=== PATIENT | female | born 1970 | race Caucasian/White ===

== ENCOUNTER 2020-07-24 11:11 | Outpatient (REF) | payer MEDICAID, SELFPAY | END 2020-07-24 11:12 | disposition home or self-care (01) | LOC: HO.LAB 11:11 | PROVIDERS: Visit Provider Internal Medicine | DX: Z20.828 Contact with and (suspected) exposure to other viral communicable diseases (principal) | CPT/HCPCS: 87635 ==

== ENCOUNTER 2020-09-15 00:08 | Emergency (ER) | payer MEDICAID, SELFPAY ==
[2020-09-15 01:04] VITALS: BP 135/88; PULSE 80; RESP 16; TEMP 36.2; O2SAT 98; BMI 27.3
--- NOTE | 2020-09-15 02:13 | ED.GENADULT ---
HPI - General Adult General Chief complaint: General Medical Stated complaint: VAGINAL DISCHARGE Time Seen by Provider: 09/15/20 02:01 Source: patient Mode of arrival: ambulatory Limitations: no limitations History of Present Illness HPI narrative: patient comes to the emergency room complaining of a suture sticking out from a surgical sites, below her left nipple. Patient had breast augmentation surgery on 07/17/[address] Patient denies any pain, patient states that the suture is sticking out and she was concerned. No signs of infection. No pain. MD complaint: Suture complaint Related Data Allergies Allergy/AdvReac Type Severity Reaction Status Date / Time No Known Allergies Allergy Verified 09/15/20 01:04 Review of Systems Review of Systems: Constitutional : No Weight loss, No Fever, No Chills, No Night Sweats, No Fatigue, No Malaise ENT/Mouth : No Hearing loss, No Ear Pain, No Nasal Congestion, No Sinus Pain, No Hoarseness, No sore throat, No Rhinorrhea, No Swallowing Difficulty Eyes: No Eye Pain, No Swelling, No Redness, No Foreign Body, No Discharge, No Vision Changes Cardiovascular : No Chest Pain, No SOB, No Dyspnea on Exertion, No Orthopnea, No Edema, No Palpitations Respiratory : No Cough, No Sputum, No Wheezing, No Smoke Exposure, No Dyspnea Gastrointestinal : No Nausea, No Vomiting, No Diarrhea, No Constipation, No abdominal Pain, No Hematochezia, No Melena Genitourinary : no irregular bleeding, No Dysuria, No Urinary Frequency, No Hematuria, No Urinary Incontinence, No Urgency, No Flank Pain, No Urinary Flow Changes, No Hesitancy Musculoskeletal : No joint pain, No Myalgias, No Joint Swelling Skin : No Skin Lesions, No rash Neuro : No Weakness, No Numbness, No Paresthesias, No Loss of Consciousness, No Dizziness, No Headache Psych : No Anxiety/Panic, No Depression, No SI/HI/AH/VH, No Social Issues, Heme/Lymph: No Bruising, No Bleeding,No Lymphadenopathy Endocrine : No Polyuria, No Polydipsia, No Temperature Intolerance [facility] Past Medical History Medical History Asthma High cholesterol Hypertension Kidney disease Social History Social History Advance Directives: No Advance Directives Information Provided: No Physical Exam Vital Signs: Vital Signs: Last Vital Signs Temp 97.1 F 09/15/20 01:04 Pulse 80 09/15/20 01:04 Resp 16 09/15/20 01:04 BP 135/88 09/15/20 01:04 Pulse Ox 98 09/15/20 01:04 Body Mass Index 27.3 Appearance: Alert. Oriented X3. No acute distress. Eyes: Pupils equal, round and reactive to light. ENT: Pharynx normal. Neck: Normal inspection. Neck supple. No lymph nodes noted. No crepitus CVS: Normal heart rate and rhythm. Pulses normal. Normal S1 and S2 Respiratory: No respiratory distress. Breath sounds normal. No Wheezing. No rales Abdomen: Soft and nontender. No rigidity. No distention. good BS x4 Skin: Skin warm and dry. Normal skin color. patient's incisions from the breast are healing very well. No signs of infection. There is a suture sticking from the left aereola at 06:00 o'clock position, less than 1 mm in length Extremities: No lower extremity edema. No lower extremity edema. No Lacerations. No Rash Neuro: Oriented X 3. No motor deficit. No sensory deficit. Moving all extermities. No slurred speech. Course Course Course Narrative: I attempted to reduce the size of the suture, I was able to cut most of it, however there is small amount of suture sticking out, less than 1 mm. Barely palpable to touch. I discussed with the patient that this is absorbable suture an in a few weeks he will absorbed. Discharge Plan Discharge Clinical Impression: Retained suture Qualifiers: Encounter type: initial encounter Qualified Code(s): T81.89XA - Other complications of procedures, not elsewhere classified, initial encounter Patient Disposition: Home, Self-Care Additional Instructions: the suture will self absorbed. If you have any discomfort, redness, pus drainage, any concerns with the surgery, please return to the emergency room. Otherwise please follow-up with her plastic surgeon.
== END 2020-09-15 02:26 | disposition home or self-care (01) ==
PROVIDERS: Emergency Provider Emergency Medicine; PCP Nurse Practitioner Family
DX: L76.82 Other postprocedural complications of skin and subcutaneous tissue (principal); N64.89 Other specified disorders of breast; N89.8 Other specified noninflammatory disorders of vagina; I10 Essential (primary) hypertension; Y83.4 Other reconstructive surgery as the cause of abnormal reaction of the patient, or of later complication, without mention of misadventure at the time of the procedure; Y81.8 Miscellaneous general- and plastic-surgery devices associated with adverse incidents, not elsewhere classified; Z79.899 Other long term (current) drug therapy
CPT/HCPCS: 99283

== ENCOUNTER 2020-12-28 16:39 | Outpatient (REF) | payer MEDICAID, SELFPAY ==
--- NOTE | ~2020-12-28 | XR_ITS ---
EXAMINATION: XR CHEST CLINICAL INFORMATION: Live resection. Body. COMPARISON: None TECHNIQUE: 2 views of the chest were obtained. FINDINGS: No significant abnormality is noted involving the heart, lungs, mediastinum, bony thorax or soft tissues. XR/XR chest 2V IMPRESSION: Unremarkable chest exam.
[2020-12-28 18:51] LABS: MANUAL DIFF FLAG NO
[2020-12-28 18:56] LABS: Basophils Absolute Auto 0.1 X10*3/uL (0.0-0.2); Basophils Percent Auto 0.7 % (0-2); Eosinophils Absolute Auto 0.2 X10*3/uL (0.0-0.4); Eosinophils Percent Auto 1.8 % (0-4); Hemoglobin 13.5 g/dl (12.0-16.0); Imm Gran Abs Auto 0.08 X10*3/uL (0.00-0.03); Imm Gran Pct Auto 0.8 % (0.0-0.4); Lymphocytes Absolute Auto 2.3 X10*3/uL (1.2-4.9); Lymphocytes Percent Auto 23.6 % (20-40); Mean Corpuscular HGB Conc 32.1 g/dl (31.0-35.0); Mean Corpuscular Hemoglobin 28.5 pg (27.0-33.0); Mean Corpuscular Volume 88.8 fL (80-98); Mean Platelet Volume 10.5 fL (9.4-12.3); Monocytes Absolute Auto 0.7 X10*3/uL (0.1-1.2); Monocytes Percent Auto 7.4 % (2-11); Neutrophils Absolute Auto 6.4 X10*3/uL (2.0-8.3); Neutrophils Percent Auto 65.7 % (45-73); Platelet Count 516 X10*3/uL (160-400); Red Blood Count 4.73 X10*6/uL (4.20-5.50); White Blood Count 9.7 X10*3/uL (4.8-10.8)
[2020-12-28 19:07] LABS: Prothrombin Time 11.3 SEC (10.8-13.0)
[2020-12-28 19:10] LABS: Partial Thromboplastin Time 32.5 SEC (24.1-38.0)
[2020-12-28 19:20] LABS: Alanine Aminotransferase 20 U/L (0-31); Albumin Level 4.4 g/dL (3.5-5.0); Alkaline Phosphatase 52 U/L (39-117); Anion Gap 16 (12-20); Aspartate Amino Transferase 15 U/L (5-31); Bilirubin Total 0.5 mg/dL (0.0-1.0); Blood Urea Nitrogen 20 mg/dL (9-16); Calcium 9.9 mg/dL (8.4-10.2); Carbon Dioxide 25 mmol/L (22-29); Chloride 105 mmol/L (96-108); Estimated Glomerular Filt Rate 58; Glucose Random 85 mg/dL (60-115); Potassium 4.7 mmol/L (3.3-5.1); Sodium 141 mmol/L (135-145); Total Protein 7.4 g/dL (6.5-8.0)
[2020-12-28 19:26] LABS: HCG Quantitative < 2 mIU/mL
[2020-12-29 04:28] LABS: HIV AB/AG Nonreactive (Nonreactive); HIV Num 1 0.05 S/CO (0.00-0.99)
[2021-01-02 17:16] LABS: Cotinine, U 4 ng/mL; Nicotine, U <2 ng/mL
== END 2020-12-28 16:40 | disposition home or self-care (01) ==
LOC: HO.LAB 16:39
PROVIDERS: PCP Nurse Practitioner Primary Care; Visit Provider Surgery
DX: Z01.818 Encounter for other preprocedural examination (principal)
CPT/HCPCS: 71046; 80053; 80323; 84702; 85025; 85610; 85730; 87389

== ENCOUNTER → 2020-12-29 09:55 | Outpatient (REF) | payer MEDICAID, SELFPAY ==
--- NOTE | 2020-12-29 14:07 | ECG_ITS ---
Test Reason : PREPROC EXAM Blood Pressure : / mmHG Vent. Rate : 093 BPM Atrial Rate : 093 BPM P-R Int : 136 ms QRS Dur : 082 ms QT Int : 336 ms P-R-T Axes : 051 018 031 degrees QTc Int : 417 ms Normal sinus rhythm Normal ECG When compared with ECG of 26-APR-2015 18:48, No significant change was found Referred By: Stefanie Conteh Electronically Signed By:ISLVA TRIVEDI
== END ==
LOC: HO.CARD 09:55
PROVIDERS: PCP Nurse Practitioner Primary Care; Visit Provider Surgery
DX: Z01.818 Encounter for other preprocedural examination (principal)
CPT/HCPCS: 93005

== ENCOUNTER 2021-01-05 12:50 | Outpatient (REF) | payer MEDICAID, SELFPAY ==
[2021-01-05 15:01] LABS: SARS COV2 PCR INHOUSE NEGATIVE (Negative)
== END 2021-01-05 12:51 | disposition home or self-care (01) ==
LOC: HO.LAB 12:50
PROVIDERS: Visit Provider Internal Medicine
DX: Z20.822 Contact with and (suspected) exposure to COVID-19 (principal)
CPT/HCPCS: C9803; U0003

== ENCOUNTER 2021-06-09 00:44 | Emergency (ER) | payer MEDICAID, SELFPAY ==
[2021-06-09 00:57] VITALS: BP 137/85; PULSE 84; RESP 18; TEMP 36.9; O2SAT 98; BMI 31.3
[2021-06-09 01:30] LABS: Appearance Urine HAZY; Color Urine YELLOW; Glucose Urine UA NEG (NEG); Leukocyte Esterase Urine 1+ (NEG); Nitrite Urine NEG (NEG); PH 5.5 (5.0-8.0); Specific Gravity - Urine 1.025 (1.005-1.025); Urine Blood NEG (NEG); Urine Ketones NEG (NEG); Urine Protein NEG (NEG-TRACE)
[2021-06-09 01:36] LABS: Bacteria Urine 2+ /LPF; Mucus Urine 1+ /LPF; RBC Urine 0 /HPF (0); Squamous Epithelial Cell Urine 3+ /LPF
--- NOTE | 2021-06-09 01:54 | ED_ITS ---
HPI - Female Genitourinary General Chief complaint: Urogenital-Female Stated complaint: Pelvic pain/?UTI Time Seen by Provider: 06/09/21 01:44 Source: patient and family (Significant other) Mode of arrival: ambulatory Limitations: no limitations History of Present Illness HPI Narrative: 51-year-old female came in for pelvic pain for 2 weeks, patient also been having frequency urination, with urgency for urination, no dysuria, no back or flank pain. No fever, no chills. Related Data Previous Rx's Medication Instructions Recorded nitrofurantoin 100 mg PO BID #14 cap 06/09/21 monohydrate/macrocrystals 100 mg capsule (Macrobid) phenazopyridine 200 mg tablet 200 mg PO TID #6 tab 06/09/21 (Pyridium) Allergies Allergy/AdvReac Type Severity Reaction Status Date / Time No Known Allergies Allergy Verified 09/15/20 01:04 Review of Systems Review of Systems: All other systems are reviewed and are negative Constitutional: Reports as per HPI and Reports no additional constitutional complaints Eyes: Reports as per HPI and Reports no additional eye complaints Reports system reviewed and no additional complaints, except as documented Cardiovascular: Reports as per HPI and Reports no additional cardiovascular com plaints Respiratory: Reports as per HPI and Reports no additional respiratory complaints Gastrointestinal: Reports as per HPI and Reports no additional gastrointestinal complaints Genitourinary: Reports no additional female genitourinary complaints Musculoskeletal: Reports no additional musculoskeletal complaints Skin/Breast: Reports system reviewed and no additional complaints, except as docu Psychiatric: Reports no additional psychiatric complaints Endocrine: Reports no additional endocrine complaints Hematologic/Lymphatic: Reports no additional hematologic/lymphatic complaints Allergic/Immunologic: Reports no additional allergic/immunologic complaints Reports system reviewed and no additional complaints, except as documented and Reports Abnormal speech present. REPLACED BY [facility] Past Medical History Medical History Asthma High cholesterol Hypertension Kidney disease Social History Social History Patient Tobacco Use Status: Tobacco use Unknown Use of substances other than those prescribed or required for medical reasons: Unknown Advance Directives: No Patient : No Physical Exam Vital Signs: Vital Signs: Last Vital Signs Temp 98.5 F 06/09/21 00:57 Pulse 84 06/09/21 00:57 Resp 18 06/09/21 00:57 BP 137/85 06/09/21 00:57 Pulse Ox 98 06/09/21 00:57 Body Mass Index 31.3 Vital signs have been reviewed as appeared to be correct. Blood pressure normal. Heart rate normal. Respiration rate normal. Temperature normal. Oxygen saturation normal. Appearance: Alert. Oriented X3. No acute distress. Head: Normal external exam. Normocephalic. Atraumatic. No Ma signs noted. No raccoon eyes noted Eyes: PERRLA. EOMI. Conjunctiva and sclera normal. Eyelids normal. ENT: TM's Normal. Pharynx normal. Uvula midline. Moist mucous membranes. No trismus noted. No drooling noted. No muffled voice noted. Neck: Normal inspection. Neck supple. FROM. No adenopathy. Thyroid Normal. No meningeal signs. No neck mass noted. CVS: Normal heart rate and rhythm. Heart sound normal. No murmurs noted. Pulses normal throughout. Respiratory: No respiratory distress. Painless inspiration. Breath sounds norm al. No wheezes/rales/rhonchi noted. Chest nontender. No accessory muscle usage noted or decreased air movement noted. Abdomen: Soft and nontender, no rebound tenderness, no guarding. Bowel sounds n ormal in all 4 quadrants. No distention noted. No organomegaly noted. No visible injury noted. Back: No CVA tenderness. Full range of motion noted. Skin: Skin warm and dry. Normal skin color. Normal skin turgor. No rashes/lesions/lacerations noted. Extremities: No lower extremity edema. Extremities exhibit normal range of motion. Extremities nontender. Neuro: Oriented X 3. Cranial nerve exam: II-XII are grossly intact No motor deficit. No sensory deficit. Reflexes normal. Course Course Course Narrative: Assessment and plan. 51-year-old female came in with pelvic pain, urgency and frequency. Positive mild LEand 5-9 white blood cells. Start the patient on Macrobid and patient was recommended to drink plenty of fluid, patient also was instructed to follow-up with her OBGYN doctor for further follow-up. MDM - Female Genitourinary Lab Data Attestation: I reviewed the patient's lab results. Result diagrams: 06/09/21 02:12 06/09/21 02:12 Labs: Lab Results 06/09/21 06/09/21 06/09/21 Range/Units 01:24 02:12 02:12 WBC 10.1 (4.8-10.8) X10*3/uL RBC 4.20 (4.20-5.50) X10*6/uL Hgb 12.0 (12.0-16.0) g/dl Hct 36.0 L (37-47) % MCV 85.7 (80-98) fL MCH 28.6 (27.0-33.0) pg MCHC 33.3 (31.0-35.0) g/dl RDW 15.8 (11.0-16.0) % Plt Count 374 D (160-400) X10*3/uL MPV 9.8 (9.4-12.3) fL Immature Gran % (Auto) 0.6 H (0.0-0.4) % Neut % (Auto) 64.7 (45-73) % Lymph % (Auto) 25.0 (20-40) % [place] % (Auto) 6.3 (2-11) % Eos % (Auto) 2.7 (0-4) % Baso % (Auto) 0.7 (0-2) % Lymph # (Auto) 2.5 (1.2-4.9) X10*3/uL [place] # (Auto) 0.6 (0.1-1.2) X10*3/uL Eos # (Auto) 0.3 (0.0-0.4) X10*3/uL Baso # (Auto) 0.1 (0.0-0.2) X10*3/uL Abs Immat Gran (auto) 0.06 H (0.00-0.03) X10*3/uL Absolute Neuts (auto) 6.5 (2.0-8.3) X10*3/uL Absolute Nucleated RBC 0.000 (0.0-0.012) X10*3/uL Nucleated RBC % (auto) 0.0 (0.0-0.2) /100WBC Sodium 136 (135-145) mmol/L Potassium 4.3 (3.3-5.1) mmol/L Chloride 100 (96-108) mmol/L Carbon Dioxide 24 (22-29) mmol/L Anion Gap 16 (12-20) BUN 21 H (9-16) mg/dL Creatinine 1.06 (0.5-1.4) mg/dL Estim Creat Clear Calc 54.1 Estimated GFR 55 Random Glucose 113 (60-115) mg/dL Calcium 9.9 (8.4-10.2) mg/dL Total Bilirubin 0.2 (0.0-1.0) mg/dL Direct Bilirubin < 0.2 (0.0-0.5) mg/dL AST 11 (5-31) U/L ALT 12 (0-31) U/L Alkaline Phosphatase 58 (39-117) U/L Total Protein 6.4 L (6.5-8.0) g/dL Albumin 3.9 (3.5-5.0) g/dL Lipase 25 (8-78) U/L Beta HCG, Quant < 2 mIU/mL Urine Color YELLOW Urine Appearance HAZY Urine pH 5.5 (5.0-8.0) Ur Specific [place] 1.025 (1.005-1.025) Urine Protein NEG (NEG-TRACE) MG/DL Urine Glucose (UA) NEG (NEG) MG/DL Urine Ketones NEG (NEG) MG/DL Urine Blood NEG (NEG) Urine Nitrite NEG (NEG) Ur Leukocyte Esterase 1+ H (NEG) Urine RBC 0 (0) /HPF Urine WBC 5-9 H (0-4) /HPF Ur Squamous Epith Cells 3+ /LPF Urine Bacteria 2+ /LPF Urine Mucus 1+ /LPF Discharge Plan Discharge Clinical Impression: Urinary tract infection Qualifiers: Urinary tract infection type: acute cystitis Hematuria presence: without hematuria Qualified Code(s): N30.00 - Acute cystitis without hematuria Patient Disposition: Home, Self-Care Instructions: Urinary Urgency and Frequency (DC) Prescriptions: New nitrofurantoin monohyd/m-cryst [Macrobid] 100 mg capsule 100 mg PO BID Qty: 14 RF: 0 phenazopyridine [Pyridium] 200 mg tablet 200 mg PO TID Qty: 6 RF: 0 Referrals: Stefanie Conteh, [employer] [Primary Care Provider] - 2 days
[2021-06-09 02:19] LABS: Basophils Absolute Auto 0.1 X10*3/uL (0.0-0.2); Basophils Percent Auto 0.7 % (0-2); Eosinophils Absolute Auto 0.3 X10*3/uL (0.0-0.4); Eosinophils Percent Auto 2.7 % (0-4); Imm Gran Abs Auto 0.06 X10*3/uL (0.00-0.03); Imm Gran Pct Auto 0.6 % (0.0-0.4); Lymphocytes Absolute Auto 2.5 X10*3/uL (1.2-4.9); MANUAL DIFF FLAG NO; Mean Corpuscular HGB Conc 33.3 g/dl (31.0-35.0); Mean Corpuscular Hemoglobin 28.6 pg (27.0-33.0); Mean Corpuscular Volume 85.7 fL (80-98); Mean Platelet Volume 9.8 fL (9.4-12.3); Monocytes Absolute Auto 0.6 X10*3/uL (0.1-1.2); Monocytes Percent Auto 6.3 % (2-11); Neutrophils Absolute Auto 6.5 X10*3/uL (2.0-8.3); Neutrophils Percent Auto 64.7 % (45-73); Platelet Count 374 X10*3/uL (160-400); Red Cell Distribution Width 15.8 % (11.0-16.0); White Blood Count 10.1 X10*3/uL (4.8-10.8)
[2021-06-09 02:55] LABS: Alanine Aminotransferase 12 U/L (0-31); Albumin Level 3.9 g/dL (3.5-5.0); Alkaline Phosphatase 58 U/L (39-117); Anion Gap 16 (12-20); Aspartate Amino Transferase 11 U/L (5-31); Bilirubin Direct < 0.2 mg/dL (0.0-0.5); Bilirubin Total 0.2 mg/dL (0.0-1.0); Blood Urea Nitrogen 21 mg/dL (9-16); Calcium 9.9 mg/dL (8.4-10.2); Carbon Dioxide 24 mmol/L (22-29); Chloride 100 mmol/L (96-108); Creatinine Clr Calc Pharmacy 54.1; Estimated Glomerular Filt Rate 55; Glucose Random 113 mg/dL (60-115); Lipase 25 U/L (8-78); Potassium 4.3 mmol/L (3.3-5.1); Sodium 136 mmol/L (135-145); Total Protein 6.4 g/dL (6.5-8.0)
[2021-06-09 03:02] LABS: HCG Quantitative < 2 mIU/mL
[2021-06-09] MEDS: Nitrofurantoin Monohyd/M-Cryst 100 MG CAPSULE PO (03:55)
[2021-06-09] MEDS: Phenazopyridine HCL 200 MG TABLET PO (03:56)
== END 2021-06-09 03:55 | disposition home or self-care (01) ==
PROVIDERS: Emergency Provider Emergency Medicine; PCP Nurse Practitioner Primary Care
DX: N30.00 Acute cystitis without hematuria (principal); R10.2 Pelvic and perineal pain; I10 Essential (primary) hypertension
CPT/HCPCS: 36415; 80048; 80076; 81001; 83690; 84702; 85025; 87086; 87088; 87186; 99283; 99284

== ENCOUNTER 2023-07-20 09:59 | Outpatient (REF) | payer MEDICAID, SELFPAY ==
[2023-07-20 12:19] LABS: Alanine Aminotransferase 20 U/L (0-31); Albumin Level 4.1 g/dL (3.5-5.0); Alkaline Phosphatase 45 U/L (39-117); Anion Gap 11 (12-20); Aspartate Amino Transferase 15 U/L (5-31); Bilirubin Direct 0.1 mg/dL (0.0-0.5); Bilirubin Total 0.3 mg/dL (0.0-1.0); Blood Urea Nitrogen 17 mg/dL (9-16); Calcium 9.4 mg/dL (8.4-10.2); Carbon Dioxide 24 mmol/L (22-29); Chloride 108 mmol/L (96-108); Cholesterol 210 mg/dL (<200); Estimated Glomerular Filt Rate > 60; Glucose Random 93 mg/dL (60-115); HDL Cholesterol 54 mg/dL (>40); LDL Cholesterol Calculated 145 mg/dL (<100); Potassium 3.9 mmol/L (3.3-5.1); Sodium 139 mmol/L (135-145); Total Protein 6.9 g/dL (6.5-8.0); Triglycerides 59 mg/dL (<150)
[2023-07-20 13:20] LABS: Creatinine Urine 140.56 mg/dL; Microalbum/Creatinine Ratio Ur 19.9 ug/mg cr (<30)
== END 2023-07-20 10:00 | disposition home or self-care (01) ==
LOC: HO.HHCL 09:59
PROVIDERS: Visit Provider Nurse Practitioner Primary Care
DX: I12.9 Hypertensive chronic kidney disease with stage 1 through stage 4 chronic kidney disease, or unspecified chronic kidney disease (principal); N18.9 Chronic kidney disease, unspecified; E78.5 Hyperlipidemia, unspecified; F39 Unspecified mood [affective] disorder
CPT/HCPCS: 36415; 80048; 80061; 80076; 82043; 82570

== ENCOUNTER 2023-07-28 20:41 | Emergency (ER) | payer MEDICAID, SELFPAY ==
[2023-07-28 20:53] VITALS: BP 135/74; PULSE 84; RESP 16; TEMP 36.6; O2SAT 96; BMI 29.9
[2023-07-28 21:20] LABS: MANUAL DIFF FLAG NO
[2023-07-28 21:21] LABS: Basophils Absolute Auto 0.1 X10*3/uL (0.0-0.2); Basophils Percent Auto 0.6 % (0-2); Eosinophils Absolute Auto 0.1 X10*3/uL (0.0-0.4); Eosinophils Percent Auto 1.7 % (0-4); Hematocrit 40.7 % (37.0-47.0); Hemoglobin 13.4 g/dl (12.0-16.0); Imm Gran Abs Auto 0.04 X10*3/uL (0.00-0.03); Imm Gran Pct Auto 0.5 % (0.0-0.4); Lymphocytes Percent Auto 24.5 % (20-40); Mean Corpuscular HGB Conc 32.9 g/dl (31.0-35.0); Mean Corpuscular Hemoglobin 28.9 pg (27.0-33.0); Mean Corpuscular Volume 87.9 fL (80.0-98.0); Mean Platelet Volume 9.9 fL (9.4-12.3); Monocytes Absolute Auto 0.5 X10*3/uL (0.1-1.2); Monocytes Percent Auto 6.4 % (2-11); Neutrophils Absolute Auto 5.5 x10*3/uL (2.0-8.3); Neutrophils Percent Auto 66.3 % (45-73); Platelet Count 384 X10*3/uL (160-400); Red Blood Count 4.63 X10*6/uL (4.20-5.50); Red Cell Distribution Width 13.8 % (11.0-16.0); White Blood Count 8.3 X10*3/uL (4.8-10.8)
[2023-07-28 21:22] LABS: Appearance Urine Clear; Color Urine Yellow; Glucose Urine UA Negative (Negative); Leukocyte Esterase Urine Negative (Negative); Nitrite Urine Negative (Negative); Urine Blood Negative (Negative); Urine Ketones Negative (Negative); Urine Protein Negative (Neg-Trace)
[2023-07-28 21:36] LABS: Alanine Aminotransferase 23 U/L (0-31); Albumin Level 4.1 g/dL (3.5-5.0); Alkaline Phosphatase 45 U/L (39-117); Anion Gap 14 (12-20); Aspartate Amino Transferase 18 U/L (5-31); Bilirubin Total 0.2 mg/dL (0.0-1.0); Blood Urea Nitrogen 18 mg/dL (9-16); Calcium 10.1 mg/dL (8.4-10.2); Carbon Dioxide 24 mmol/L (22-29); Chloride 104 mmol/L (96-108); Creatinine Clr Calc Pharmacy 65.5; Estimated Glomerular Filt Rate > 60; Glucose Random 103 mg/dL (60-115); Potassium 3.8 mmol/L (3.3-5.1); Sodium 138 mmol/L (135-145)
--- NOTE | 2023-07-28 22:49 | ED_ITS ---
HPI - Abdominal Pain General Chief Complaint: Abdominal Pain Stated Complaint: kidney infection Time Seen by Provider: 07/28/23 22:39 Source: patient Mode of arrival: ambulatory Limitations: no limitations History of Present Illness HPI narrative: Patient with low back pain and UTI been treated with Levaquin since 06/06/2023 by [facility] patient denied any urinary symptoms at this time no fever no chills no nausea no vomiting add a CT scan done yesterday as a follow- up and was called by the infectious disease doctor that she still has infection patient is worried and advised to continue same antibiotics Related Data Previous Rx's Medication Instructions Recorded nitrofurantoin 100 mg PO BID #14 caps 06/09/21 monohydrate/macrocrystals 100 mg capsule (Macrobid) phenazopyridine 200 mg tablet 200 mg PO TID 6 doses #6 tabs 06/09/21 (Pyridium) Allergies Allergy/AdvReac Type Severity Reaction Status Date / Time No Known Allergies Allergy Verified 07/28/23 20:53 Review of Systems Review of Systems Yes all other systems are reviewed and are negative [facility] Past Medical History Medical History Hypertension Kidney disease High cholesterol Asthma Social History Social History Patient Tobacco Use Status: Tobacco use Unknown Advance Directives: No Advance Directives Information Provided: Yes Physical Exam ED Vital Signs: Vital Signs - 24 hr 07/28/23 20:53 Temperature 97.8 F Pulse Rate 84 Respiratory Rate 16 Blood Pressure 135/74 Pulse Oximetry 96 Oxygen Delivery Method Room Air BMI result Body Mass Index 29.9 Appearance: Alert. Oriented X3. No acute distress. ENT: Pharynx normal. Oral Mucosa moist Neck: Normal inspection. Neck supple. CVS: Normal heart rate and rhythm. Pulses normal. Respiratory: No respiratory distress. Equal air entry bilateral, Abdomen: Soft and nontender. Bowel sounds are present, no mass palpable, no CVA tenderness back: Mild tenderness lumbosacral area Neuro: Oriented X 3. No motor deficit. Medical Decision Making Differential Diagnosis Differential Diagnoses: The differential diagnosis associated with the presentation includes UTI/kidney stone/musculoskeletal pain Lab Data [facility] Lab Attestation statement: I reviewed the patient's lab results. 07/28/23 21:16 07/28/23 21:16 Labs: Lab Results 07/28/23 Range/Units 21:16 WBC 8.3 (4.8-10.8) X10*3/uL RBC 4.63 (4.20-5.50) X10*6/uL Hgb 13.4 (12.0-16.0) g/dl Hct 40.7 (37.0-47.0) % MCV 87.9 (80.0-98.0) fL MCH 28.9 (27.0-33.0) pg MCHC 32.9 (31.0-35.0) g/dl RDW 13.8 (11.0-16.0) % Plt Count 384 (160-400) X10*3/uL MPV 9.9 (9.4-12.3) fL Immature Gran % (Auto) 0.5 H (0.0-0.4) % Neut % (Auto) 66.3 (45-73) % Lymph % (Auto) 24.5 (20-40) % [place] % (Auto) 6.4 (2-11) % Eos % (Auto) 1.7 (0-4) % Baso % (Auto) 0.6 (0-2) % Lymph # (Auto) 2.0 (1.2-4.9) X10*3/uL [place] # (Auto) 0.5 (0.1-1.2) X10*3/uL Eos # (Auto) 0.1 (0.0-0.4) X10*3/uL Baso # (Auto) 0.1 (0.0-0.2) X10*3/uL Abs Immat Gran (auto) 0.04 H (0.00-0.03) X10*3/uL Absolute Neuts (auto) 5.5 (2.0-8.3) x10*3/uL Absolute Nucleated RBC 0.000 (0.0-0.012) X10*3/uL Nucleated RBC % (auto) 0.0 (0.0-0.2) /100WBC Sodium 138 (135-145) mmol/L Potassium 3.8 (3.3-5.1) mmol/L Chloride 104 (96-108) mmol/L Carbon Dioxide 24 (22-29) mmol/L Anion Gap 14 (12-20) BUN 18 H (9-16) mg/dL Creatinine 0.91 (0.5-1.4) mg/dL Estim Creat Clear Calc 65.5 Estimated GFR > 60 Random Glucose 103 (60-115) mg/dL Calcium 10.1 D (8.4-10.2) mg/dL Total Bilirubin 0.2 (0.0-1.0) mg/dL AST 18 (5-31) U/L ALT 23 (0-31) U/L Alkaline Phosphatase 45 (39-117) U/L Total Protein 7.0 (6.5-8.0) g/dL Albumin 4.1 (3.5-5.0) g/dL Urine Color Yellow Urine Appearance Clear Urine pH 6.0 (5.0-9.0) Ur Specific [place] 1.010 (1.005-1.025) Urine Protein Negative (Neg-Trace) mg/dL Urine Glucose (UA) Negative (Negative) mg/dL Urine Ketones Negative (Negative) mg/dL Urine Blood Negative (Negative) Urine Nitrite Negative (Negative) Ur Leukocyte Esterase Negative (Negative) Discharge Plan Discharge Clinical Impression: Low back pain Patient Disposition: Home, Self-Care Instructions: Back Pain (ED) Additional Instructions: At this time there is no proof of any infection Follow-up with PCP/urology Ibuprofen for pain as needed Prescriptions: No Action nitrofurantoin monohyd/m-cryst [Macrobid] 100 mg capsule 100 mg PO BID Qty: 14 0RF Rx Instructions: must administer with a meal/food phenazopyridine [Pyridium] 200 mg tablet 200 mg PO TID Qty: 6 0RF Interventions: ED Discharge Assessment Last Done: 07/28/23 23:22 Discharge Date/Time: 07/28/23 23:22
== END 2023-07-28 23:22 | disposition home or self-care (01) ==
PROVIDERS: Emergency Provider Internal Medicine; PCP Nurse Practitioner Primary Care
DX: M54.50 Low back pain, unspecified (principal); Z79.899 Other long term (current) drug therapy
CPT/HCPCS: 36415; 80053; 81003; 85025; 99282; 99283

== ENCOUNTER 2023-08-14 18:19 | Outpatient (REF) | payer MEDICAID, SELFPAY ==
[2023-08-17 20:34] LABS: HPV mRNA E6/E7 rflx Not Detected (Not Detected)
== END 2023-08-14 18:20 | disposition home or self-care (01) ==
LOC: HO.HHCLNP 18:19
PROVIDERS: Visit Provider Advanced Practice Midwife
DX: Z12.4 Encounter for screening for malignant neoplasm of cervix (principal); Z11.51 Encounter for screening for human papillomavirus (HPV)
CPT/HCPCS: 87624; 88142

== ENCOUNTER 2023-10-17 10:46 | Outpatient (REF) | payer MEDICAID, SELFPAY ==
[2023-10-17 11:33] LABS: Appearance Urine Cloudy; Color Urine Yellow; Glucose Urine UA Negative (Negative); Leukocyte Esterase Urine Negative (Negative); Nitrite Urine Negative (Negative); PH 5.5 (5.0-9.0); UMIC TRIGGER UA YES; Urine Blood Trace (Negative); Urine Ketones Negative (Negative); Urine Protein Negative (Neg-Trace)
[2023-10-17 11:35] LABS: Bacteria Urine Trace (None Seen); Hyaline Casts Urine 0-2 /LPF (0-2); RBC Urine 0-2 /HPF (0-2); WBC Urine 0-5 /HPF (0-5)
[2023-10-17 12:55] LABS: TSH reflex Free T4 2.56 uIU/mL (0.32-4.0)
== END 2023-10-17 10:47 | disposition home or self-care (01) ==
LOC: HO.HHCL 10:46
PROVIDERS: Visit Provider Nurse Practitioner Primary Care
DX: R10.9 Unspecified abdominal pain (principal); R23.2 Flushing
CPT/HCPCS: 36415; 81001; 84443; 87086

== ENCOUNTER 2023-10-23 20:38 | Emergency (ER) | payer MEDICAID, SELFPAY ==
[2023-10-23 20:59] VITALS: BP 113/83; PULSE 85; RESP 18; TEMP 36.3; O2SAT 99; BMI 30.4
[2023-10-24 00:13] VITALS: BP 143/88; PULSE 93; RESP 16; O2SAT 98
[2023-10-24 00:29] LABS: MANUAL DIFF FLAG NO
[2023-10-24 00:30] LABS: Basophils Absolute Auto 0.1 X10*3/uL (0.0-0.2); Basophils Percent Auto 0.6 % (0-2); Eosinophils Absolute Auto 0.2 X10*3/uL (0.0-0.4); Eosinophils Percent Auto 2.7 % (0-4); Hematocrit 40.4 % (37.0-47.0); Hemoglobin 13.3 g/dl (12.0-16.0); Imm Gran Abs Auto 0.03 X10*3/uL (0.00-0.03); Imm Gran Pct Auto 0.3 % (0.0-0.4); Lymphocytes Absolute Auto 2.3 X10*3/uL (1.2-4.9); Lymphocytes Percent Auto 26.5 % (20-40); Mean Corpuscular HGB Conc 32.9 g/dl (31.0-35.0); Mean Corpuscular Hemoglobin 28.4 pg (27.0-33.0); Mean Corpuscular Volume 86.1 fL (80.0-98.0); Monocytes Absolute Auto 0.6 X10*3/uL (0.1-1.2); Monocytes Percent Auto 6.9 % (2-11); Neutrophils Absolute Auto 5.5 x10*3/uL (2.0-8.3); Platelet Count 359 X10*3/uL (160-400); Red Blood Count 4.69 X10*6/uL (4.20-5.50); Red Cell Distribution Width 13.3 % (11.0-16.0); White Blood Count 8.7 X10*3/uL (4.8-10.8)
[2023-10-24 00:50] LABS: Alanine Aminotransferase 37 U/L (0-31); Albumin Level 4.3 g/dL (3.5-5.0); Alkaline Phosphatase 65 U/L (39-117); Anion Gap 13 (12-20); Aspartate Amino Transferase 23 U/L (5-31); Bilirubin Total 0.2 mg/dL (0.0-1.0); Blood Urea Nitrogen 22 mg/dL (9-16); Calcium 10.1 mg/dL (8.4-10.2); Carbon Dioxide 27 mmol/L (22-29); Chloride 105 mmol/L (96-108); Creatinine Clr Calc Pharmacy 63.2; Estimated Glomerular Filt Rate > 60; Glucose Random 132 mg/dL (60-115); Potassium 3.8 mmol/L (3.3-5.1); Sodium 141 mmol/L (135-145); Total Protein 7.5 g/dL (6.5-8.0)
[2023-10-24 01:53] VITALS: BP 118/73; PULSE 83; RESP 20; TEMP 36.8
--- NOTE | 2023-10-24 01:53 | PC.NURSE ---
Pt presents to ED for further evaluation of back pain that radiates into right lower abdomen. Concerned she may a kidney infection. States she has had one in the past requiring IV abx. Pt given urine cup and instructed how to give clean catch specimen, and to notify staff when it is ready. Alert and oriented x4 on arrival. VSS.
[2023-10-24 02:33] VITALS: BP 130/74; PULSE 79; RESP 16; TEMP 36.8; O2SAT 97
[2023-10-24 02:43] LABS: Appearance Urine Clear; Color Urine Yellow; Glucose Urine UA Negative (Negative); Leukocyte Esterase Urine Negative (Negative); Nitrite Urine Negative (Negative); PH 5.5 (5.0-9.0); Specific Gravity - Urine 1.025 (1.005-1.025); Urine Blood Negative (Negative); Urine Ketones Negative (Negative); Urine Protein Negative (Neg-Trace)
--- NOTE | 2023-10-24 03:18 | ED_ITS ---
HPI - Back Pain/Injury General Chief Complaint: Back Pain/Injury Stated Complaint: lower back pain Time Seen by Provider: 10/24/23 03:11 Source: patient Mode of arrival: ambulatory Limitations: no limitations History of Present Illness HPI Narrative: Patient comes to the emergency room requesting to be checked for ?kidney infection? patient states that she is prone to infections. Patient denies any hematuria or dysuria. Patient states that her primary care physician sent the patient for a CT scan which was done yesterday at [facility], this was done on an outpatient basis, patient states that she will receive her results in 1 and half weeks. At this time, patient denies any abdominal pain, no flank pain, complaining of pain over bilateral upper buttocks Related Data Previous Rx's Medication Instructions Recorded nitrofurantoin 100 mg PO BID #14 caps 06/09/21 monohydrate/macrocrystals 100 mg capsule (Macrobid) phenazopyridine 200 mg tablet 200 mg PO TID 6 doses #6 tabs 06/09/21 (Pyridium) acetaminophen 650 mg 650 mg PO Q8H #20 tabs 10/24/23 tablet,extended release cyclobenzaprine 5 mg tablet 5 mg PO TID PRN muscle spasm #7 10/24/23 tabs Allergies Allergy/AdvReac Type Severity Reaction Status Date / Time No Known Allergies Allergy Verified 10/23/23 20:49 Review of Systems 2 Review of Systems: Constitutional : No Weight loss, No Fever, No Chills, No Night Sweats, No Fatigue, No Malaise ENT/Mouth : No Hearing loss, No Ear Pain, No Nasal Congestion, No Sinus Pain, No Hoarseness, No sore throat, No Rhinorrhea, No Swallowing Difficulty Eyes: No Eye Pain, No Swelling, No Redness, No Foreign Body, No Discharge, No Vision Changes Cardiovascular : No Chest Pain, No SOB, No Dyspnea on Exertion, No Orthopnea, No Edema, No Palpitations Respiratory : No Cough, No Sputum, No Wheezing, No Smoke Exposure, No Dyspnea Gastrointestinal : No Nausea, No Vomiting, No Diarrhea, No Constipation, No abdominal Pain, No Hematochezia, No Melena Genitourinary : no irregular bleeding, No Dysuria, No Urinary Frequency, No Hematuria, No Urinary Incontinence, No Urgency, No Flank Pain, No Urinary Flow Changes, No Hesitancy Musculoskeletal : Complaining of bilateral lower back pain, mostly upper buttocks pain No joint pain, No Myalgias, No Joint Swelling Skin : No Skin Lesions, No rash Neuro : No Weakness, No Numbness, No Paresthesias, No Loss of Consciousness, No Dizziness, No Headache Psych : No Anxiety/Panic, No Depression, No SI/HI/AH/VH, No Social Issues, Heme/Lymph: No Bruising, No Bleeding,No Lymphadenopathy Endocrine : No Polyuria, No Polydipsia, No Temperature Intolerance PMFSH Past Medical History Onset Date is defined in the Problem List Problems that require an onset date and time if occurred within 24 hrs of arrival to the ED Aortic Dissection and Rupture; Neurologic impairment; Cardiopulmonary Arrest; Endotracheal Intubation; Insertion or Replacement of Mechanical Circulatory Assist Device Medical History Hypertension Kidney disease High cholesterol Asthma Social History Social History Patient Tobacco Use Status: Tobacco use Unknown Advance Directives: No Advance Directives Information Provided: Yes Physical Exam 2 Vital Signs: Vital Signs: Last Vital Signs Temp 98.3 F 10/24/23 02:33 Pulse 79 10/24/23 02:33 Resp 16 10/24/23 02:33 BP 130/74 10/24/23 02:33 Pulse Ox 97 10/24/23 02:33 O2 Del Method Room Air 10/24/23 01:53 BMI result Body Mass Index 30.4 Const: Other: Appearance: Alert. Oriented X3. No acute distress. Well-appearing Eyes: Pupils equal, round and reactive to light. ENT: Pharynx normal. Neck: Normal inspection. Neck supple. No lymph nodes noted. No crepitus CVS: Normal heart rate and rhythm. Pulses normal. Normal S1 and S2 Respiratory: No respiratory distress. Breath sounds normal. No Wheezing. No rales Abdomen: Soft and nontender. No rigidity. No distention. Back: Negative CVA tenderness, pain to palpation over the upper buttocks bilaterally Skin: Skin warm and dry. Normal skin color. Normal skin turgor. Extremities: No lower extremity edema. No Lacerations. No Rash Neuro: Oriented X 3. No motor deficit. No sensory deficit. Moving all extremities. No slurred speech. CN 2 through 12 grossly intact Psych: calm, cooperative, normal affect Medical Decision Making Medical Decision Making [facility] Narrative: -my interpretation of labs: Hematology within normal limits, chemistry normal, urinalysis negative for UTI -I discussed the labs with the patient, no signs of infection including UTI or pyelonephritis. -patient likely has musculoskeletal pain. Differential Diagnosis Differential Diagnoses: The differential diagnosis associated with the presentation includes (Kidney stone, renal colic, musculoskeletal pain, sciatica) Lab Data [facility] Lab Attestation statement: I reviewed the patient's lab results. 10/24/23 00:22 10/24/23 00:22 Labs: Lab Results 10/24/23 10/24/23 Range/Units 00:22 02:35 WBC 8.7 (4.8-10.8) X10*3/uL RBC 4.69 (4.20-5.50) X10*6/uL Hgb 13.3 (12.0-16.0) g/dl Hct 40.4 (37.0-47.0) % MCV 86.1 (80.0-98.0) fL MCH 28.4 (27.0-33.0) pg MCHC 32.9 (31.0-35.0) g/dl RDW 13.3 (11.0-16.0) % Plt Count 359 (160-400) X10*3/uL MPV 10.0 (9.4-12.3) fL Immature Gran % (Auto) 0.3 (0.0-0.4) % Neut % (Auto) 63.0 (45-73) % Lymph % (Auto) 26.5 (20-40) % [place] % (Auto) 6.9 (2-11) % Eos % (Auto) 2.7 (0-4) % Baso % (Auto) 0.6 (0-2) % Lymph # (Auto) 2.3 (1.2-4.9) X10*3/uL [place] # (Auto) 0.6 (0.1-1.2) X10*3/uL Eos # (Auto) 0.2 (0.0-0.4) X10*3/uL Baso # (Auto) 0.1 (0.0-0.2) X10*3/uL Abs Immat Gran (auto) 0.03 (0.00-0.03) X10*3/uL Absolute Neuts (auto) 5.5 (2.0-8.3) x10*3/uL Absolute Nucleated RBC 0.000 (0.0-0.012) X10*3/uL Nucleated RBC % (auto) 0.0 (0.0-0.2) /100WBC Sodium 141 (135-145) mmol/L Potassium 3.8 (3.3-5.1) mmol/L Chloride 105 (96-108) mmol/L Carbon Dioxide 27 (22-29) mmol/L Anion Gap 13 (12-20) BUN 22 H (9-16) mg/dL Creatinine 0.95 (0.5-1.4) mg/dL Estim Creat Clear Calc 63.2 Estimated GFR > 60 Random Glucose 132 H (60-115) mg/dL Calcium 10.1 (8.4-10.2) mg/dL Total Bilirubin 0.2 (0.0-1.0) mg/dL AST 23 (5-31) U/L ALT 37 H (0-31) U/L Alkaline Phosphatase 65 (39-117) U/L Total Protein 7.5 (6.5-8.0) g/dL Albumin 4.3 (3.5-5.0) g/dL Urine Color Yellow Urine Appearance Clear Urine pH 5.5 (5.0-9.0) Ur Specific [place] 1.025 (1.005-1.025) Urine Protein Negative (Neg-Trace) mg/dL Urine Glucose (UA) Negative (Negative) mg/dL Urine Ketones Negative (Negative) mg/dL Urine Blood Negative (Negative) Urine Nitrite Negative (Negative) Ur Leukocyte Esterase Negative (Negative) Urine RBC 0-2 (0-2) /HPF Urine WBC 0-5 (0-5) /HPF Ur Squamous Epith Cells 3-5 (0-2) /HPF Urine Bacteria None Seen (None Seen) Hyaline Casts 0-2 (0-2) /LPF Discharge Plan Discharge Clinical Impression: Lower back pain Patient Disposition: Home, Self-Care Instructions: Low Back Strain (ED) Additional Instructions: Please follow-up with your primary care physician tomorrow. If you have any worsening or new symptoms, please return to the emergency room or call 911 Prescriptions: New cyclobenzaprine 5 mg tablet 5 mg PO TID PRN (Reason: muscle spasm) Qty: 7 0RF acetaminophen 650 mg tablet extended release 650 mg PO Q8H Qty: 20 0RF No Action nitrofurantoin monohyd/m-cryst [Macrobid] 100 mg capsule 100 mg PO BID Qty: 14 0RF Rx Instructions: must administer with a meal/food phenazopyridine [Pyridium] 200 mg tablet 200 mg PO TID Qty: 6 0RF
[2023-10-24 03:23] LABS: Bacteria Urine None Seen (None Seen); Hyaline Casts Urine 0-2 /LPF (0-2); RBC Urine 0-2 /HPF (0-2); WBC Urine 0-5 /HPF (0-5)
== END 2023-10-24 03:54 | disposition home or self-care (01) ==
PROVIDERS: Emergency Provider Emergency Medicine
DX: M54.50 Low back pain, unspecified (principal); I10 Essential (primary) hypertension; E78.5 Hyperlipidemia, unspecified
CPT/HCPCS: 36415; 80053; 81001; 85025; 99283; 99284

== ENCOUNTER 2023-11-10 12:38 | Outpatient (RCR) | payer MEDICAID, SELFPAY | END 2024-03-06 13:26 | disposition home or self-care (01) | LOC: HO.OT 12:38 | PROVIDERS: PCP Nurse Practitioner Primary Care; Visit Provider Nurse Practitioner Primary Care | DX: M79.631 Pain in right forearm (principal); M79.644 Pain in right finger(s); M79.645 Pain in left finger(s) | CPT/HCPCS: 97110; 97165 ==

== ENCOUNTER 2023-11-16 14:01 | Outpatient (AMB) | payer MEDICAID, SELFPAY ==
[2023-11-16 14:09] VITALS: BMI 30.4
--- NOTE | 2023-11-16 14:09 | MHC.OFFVIS ---
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 Hx of cortisone injection in her right thumb. Patient reports that her pain is worse on the right hand that the left hand. She states having numbness for 2 months and a half ago. She states that her Right and Left thumb, PF, MF and RF get numb all the time but its worse at night. 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 Denies injury. She states she had right thumb injection without relief. she does have n/t in both hands and has to shake the hands to make it feel better. She states that both thumbs walk on her throughout the day which cause significant discomfort. She has decreased vp celebrity services strength in the right when compared to the left. [facility] Medical History Hypertension Kidney disease High cholesterol Asthma Social History (Updated 11/16/23 @ 14:25 by Judy Carreon) Alcohol intake: never Patient Tobacco Use Status: Tobacco use Unknown Review of Systems Const All systems reviewed & are unremarkable except as noted in HPI and below Physical Exam Vital Signs: BMI result Body Mass Index 30.4 Const General: cooperative and no acute distress Orientation/consciousness: patient oriented x3 Resp Effort & Inspection: normal respiratory effort and able to speak in complete sentences Cardio Peripheral pulses: Peripheral pulses 2+ throughout Neuro General: patient oriented x3 Extrem Other: bilat elbow and wrist normal to inspection. Tenderness over the cubital tunnel. She is able to make a full fist and fully extend all fingers. Positive Tinel's over the cubital tunnel bilaterally. Negative tinel over the carpal canal bilat thumb Tender nodule along the A1 patrick with active catching and locking. NVI. Assessment & Plan Assessment & Plan (1) Bilateral trigger thumb: Code(s): M65.311 - Trigger thumb, right thumb; M65.312 - Trigger thumb, left thumb (2) Cubital tunnel syndrome, bilateral: Code(s): G56.23 - Lesion of ulnar nerve, bilateral upper limbs Plan We discussed options today which include steroid injection for her trigger thumb which she declined at this time. I did offer her a brace to help with immobilization which she did not feel was comfortable and caused her more pain. I did set her up for a nerve conduction study/EMG to further evaluate the etiology of her symptoms once these are complete she will see us back to discuss further options. Orders: Orders NE nerve conduction velocity Today R20.0 - Anesthesia of skin, R20.2 - Paresthesia of skin NE electromyogram (EMG) Today R20.0 - Anesthesia of skin, R20.2 - Paresthesia of skin Coding Level of Care Code New Pt Level 3 (36680) Diagnoses Bilateral trigger thumb M65.311; M65.312 Cubital tunnel syndrome, bilateral G56.23
== END 2023-11-16 15:09 | disposition home or self-care (01) ==
PROVIDERS: PCP Nurse Practitioner Primary Care; Visit Provider Physician Assistant
DX: M65.311 Trigger thumb, right thumb (principal); M65.312 Trigger thumb, left thumb; G56.23 Lesion of ulnar nerve, bilateral upper limbs
CPT/HCPCS: 99203

== ENCOUNTER → 2023-11-16 14:01 | Outpatient (BNVA) | payer MEDICAID, SELFPAY | PROVIDERS: PCP Nurse Practitioner Primary Care; Visit Provider Physician Assistant | DX: M65.311 Trigger thumb, right thumb (principal); M65.312 Trigger thumb, left thumb; G56.23 Lesion of ulnar nerve, bilateral upper limbs | CPT/HCPCS: 99212 ==

== ENCOUNTER 2023-12-14 12:41 | Outpatient (REF) | payer MEDICAID, SELFPAY ==
--- NOTE | 2023-12-14 12:46 | EMG_ITS ---
Chief complaint: Bilateral hand pain, right worse than left Reason for referral: Evaluate for Carpal Tunnel Syndrome Referred by: Des GILBERT Procedure done: Bilateral upper extremities NCS/EMG Precautions and/or limitations: Poor tolerance of this, needle EMG deferred. The limb temperature was monitored continuously and remained between 32-36 degrees C during the performance of the NCS. Nerve Conduction Studies Anti Sensory Summary Table ?Stim Site NR Onset (ms) Norm Onset (ms) Peak (ms) Norm Peak (ms) O-P Amp (?V) Norm O-P Amp Site1 Site2 Delta-0 (ms) Dist (cm) Yaron (m/s) Norm Yaron (m/s) Right Median Anti Sensory (2nd Digit) Wrist ? 2.8 3.3 <3.6 29.2 >10 Wrist 2nd Digit 2.8 14.0 50 Right Ulnar Anti Sensory (5th Digit) Wrist ? 2.1 2.8 <3.7 17.1 >15.0 Wrist 5th Digit 2.1 14.0 67 Motor Summary Table ?Stim Site NR Onset (ms) Norm Onset (ms) O-P Amp (mV) Norm O-P Amp iAmp (mV) Amp (1st) (%) Site1 Site2 Delta-0 (ms) Dist (cm) Yaron (m/s) Norm Yaron (m/s) Left Median Motor (Abd Poll Brev) Wrist ? 3.0 <3.9 10.3 >4.5 11.8 100.0 Elbow Wrist 3.4 19.5 57 >45 Elbow ? 6.4 10.3 11.7 100.0 Right Median Motor (Abd Poll Brev) Wrist ? 3.0 <3.9 10.2 >4.5 11.5 100.0 Elbow Wrist 3.4 19.0 56 >45 Elbow ? 6.4 9.2 10.7 90.2 Left Ulnar Motor (Abd Dig Minimi) Wrist ? 2.7 <3.0 8.9 >5 10.9 100.0 B Elbow Wrist 2.8 15.0 54 >45 B Elbow ? 5.5 6.3 8.1 70.8 A Elbow B Elbow 0.8 10.0 125 >45 A Elbow ? 6.3 7.9 10.0 88.8 Right Ulnar Motor (Abd Dig Minimi) Wrist ? 2.6 <3.0 9.1 >5 12.1 100.0 B Elbow Wrist 2.6 16.5 63 >45 B Elbow ? 5.2 12.2 16.4 134.1 A Elbow B Elbow 1.3 10.0 77 >45 A Elbow ? 6.5 11.7 15.9 128.6 Comparison Summary Table ?Stim Site NR Peak (ms) Norm Peak (ms) P-T Amp (?V) Site1 Site2 Delta-P (ms) Norm Delta (ms) Left Median/Radial Dig I Comparison (Digit 1 - 10cm) Median ? 2.4 <2.9 84.6 Median Radial 0.4 Radial ? 2.0 <2.8 46.0 Right Median/Radial Dig I Comparison (Digit 1 - 10cm) Median ? 2.9 <2.9 29.5 Median Radial 0.4 Radial ? 2.5 <2.8 46.3 FINDINGS: All motor and sensory nerves tested showed normal latencies, amplitudes and conduction velocities. IMPRESSION: 1. This is a normal NCS. 2. There is no electrodiagnostic evidence for median neuropathy or ulnar neuropathy. Thank you for your kind referral. Myriam Rod MD, MARLEY Board Certified, [place] Board [employer] and [employer] (ABPMR) Board Certified, [place] Board of Electrodiagnostic Medicine (ABEM) CODIN MTDD
== END 2023-12-14 12:42 | disposition home or self-care (01) ==
LOC: HO.NEURO 12:41
PROVIDERS: PCP Nurse Practitioner Primary Care; Visit Provider Physician Assistant
DX: R20.0 Anesthesia of skin (principal); R20.2 Paresthesia of skin; M79.642 Pain in left hand; M79.641 Pain in right hand
CPT/HCPCS: 95911

== ENCOUNTER → 2023-12-14 12:46 | Outpatient (BNV) | payer MEDICAID, SELFPAY | PROVIDERS: PCP Nurse Practitioner Primary Care; Visit Provider Physical Medicine & Rehabilitation | DX: M79.641 Pain in right hand (principal); M79.642 Pain in left hand | CPT/HCPCS: 95911 ==

== ENCOUNTER 2024-02-07 12:41 | Outpatient (AMB) | payer MEDICAID, SELFPAY ==
--- NOTE | 2024-02-07 12:45 | MHC.OFFVIS ---
Intake Visit Reasons: O/V EMG rev/ per TM Intake Note: Lisandra is a 53 year old female, right hand dominant, who presents today for EMG review. EMG done 12/14/23. Patient complains of nguyen hand and forearm pain. Reports pain has worsened since last seen by us. Right thumb swelling and pain present. Shares she is unable to cook or wipe herself because her right thumb is not bending . Patient would like cortisone injection today, last done in longterm. Lead Systems Developer Required: No Accompanied by: Self / Same As Patient Allergies No Known Allergies Allergy (Verified 02/07/24 12:52) HPI HPI O/V EMG rev/ per TM: Details: 53-year-old right hand dominant female who returns to the office today for an EMG review of bilateral hands. She reports she has worsened pain in his bilateral hand and forearm which is worse on her right hand. She currently states she has pain and swelling in her right thumb which makes her unable to cook and wipe herself. Her pain is aggravated with bending her thumb. She also c/o locking and occasional numbness in her right thumb. She does not have a history of diabetes. [facility] Medical History Hypertension Kidney disease High cholesterol Asthma Social History (Updated 02/07/24 @ 12:50 by SHAYNA Colbert) Alcohol intake: never Patient Tobacco Use Status: Tobacco use Unknown Current occupation: right handed Review of Systems Const All systems reviewed & are unremarkable except as noted in HPI and below Physical Exam Extrem Other: Right thumb: Tender nodule along the A1 patrick with active catching and locking. NVI. Assessment & Plan Assessment & Plan (1) Bilateral trigger thumb: Code(s): M65.311 - Trigger thumb, right thumb; M65.312 - Trigger thumb, left thumb Category: Medical Plan We discussed options which include conservative vs operative treatment. Since the patient has been symptomatic for several months and it is impacting their daily life, the decision was made to undergo Trigger release. We discussed risk, benefits and alternatives. Risk including but not limited to infection, stiffness, ongoing trigger or catching. She does understand all this and would like to proceed with right thumb trigger release with Dr. Magdaleno. She will be booked accordingly. Patient Instructions: Scribed for Des Gilliam PA-C, by Yash Jorge, medical administrative technician, on 02/07/2024 at 12:45 PM JUSTIN. Des Dailey PA-C, have personally reviewed and agree with the information entered by the scribe. Coding Level of Care Code Est Pt Level 3 (06589) Diagnoses Bilateral trigger thumb M65.311; M65.312
== END 2024-02-07 13:09 | disposition home or self-care (01) ==
PROVIDERS: PCP Nurse Practitioner Primary Care; Visit Provider Physician Assistant
DX: M65.311 Trigger thumb, right thumb (principal); M65.312 Trigger thumb, left thumb
CPT/HCPCS: 99214

== ENCOUNTER → 2024-02-07 12:41 | Outpatient (BNVA) | payer MEDICAID, SELFPAY | PROVIDERS: PCP Nurse Practitioner Primary Care; Visit Provider Physician Assistant | DX: M65.311 Trigger thumb, right thumb (principal); M65.312 Trigger thumb, left thumb | CPT/HCPCS: 99212 ==

== ENCOUNTER 2024-03-04 15:15 | Emergency (ER) | payer MEDICAID, SELFPAY ==
[2024-03-04 15:28] VITALS: BP 132/75; PULSE 82; RESP 20; TEMP 35.9; O2SAT 98; BMI 27.5
--- NOTE | 2024-03-04 15:28 | ED_ITS ---
HPI - General Adult General Chief complaint: Abdominal Pain Stated complaint: back pain Time Seen by Provider: 03/04/24 19:51 Source: patient Mode of arrival: ambulatory Limitations: language barrier History of Present Illness ED Provider: Dr. Osullivan HPI narrative: patient presents with right lower back pain since raking her lawn. Denies other trauma, no dysuria no hematuria. The pain radiates down her right leg Onset (ago): day(s) Radiation: extremity Severity: moderate Related Data Previous Rx's ?Medication ?Instructions ?Recorded cyclobenzaprine 10 mg tablet 10 mg PO TID #10 tabs 03/04/24 naproxen 500 mg tablet (Naprosyn) 500 mg PO BID #20 tabs 03/04/24 Allergies Allergy/AdvReac Type Severity Reaction Status Date / Time No Known Allergies Allergy Verified 03/04/24 15:31 Review of Systems 2 Review of Systems: Yes all other systems are reviewed and are negative Neurologic: Denies Sensory deficit (Neuro) [facility] Past Medical History Medical History Hypertension Kidney disease High cholesterol Asthma Social History Social History Alcohol intake: never Patient Tobacco Use Status: Tobacco use Unknown Advance Directives: No Advance Directives Information Provided: No Do you have a plan to hurt others: No Plan Current occupation: right handed Physical Exam ED Vital Signs: Vital Signs - 24 hr 03/04/24 15:28 03/04/24 20:07 Temperature 96.6 F L 97.8 F Pulse Rate 82 72 Respiratory Rate 20 18 Blood Pressure 132/75 135/73 Pulse Oximetry 98 98 Oxygen Delivery Method Room Air Room Air BMI result Body Mass Index 27.5 Const General: healthy appearing Nutritional Appearance: average body habitus Orientation/consciousness: oriented to person and patient oriented x3 Limitations: no limitations HENMT Head: Yes normal to inspection Ears: external ears normal General nose exam: Normal external nose present Mouth: Normal oral and palatal mucosa present and oropharynx normal Throat: Yes posterior oropharynx normal Eyes General: appearance normal, both eyes and all related structures Neck Neck: Yes normal visual inspection Chest Chest palpation & inspection: normal inspection of the chest Resp Auscultation: clear to auscultation bilaterally Cardio Jugular venous distension: no JVD Rate: regular rate Rhythm: regular rhythm Heart sounds: S1 normal heart sound present and S2 normal heart sound present GI Inspection: Yes normal to inspection Palpation (GI): Soft to palpation, nontender and No hepatosplenomegaly present Auscultation: normal bowel sounds Back/Spine/Pelvis Other: Right SI and right sciatica with pain on palpation Skin General skin exam: no rashes or lesions noted Neuro General: oriented to person and patient oriented x3 Cranial nerves: Yes CN's II-XII intact bilaterally Motor exam (neuro): 5/5 motor strength present throughout Sensory Exam: No Sensory deficit (Neuro) Extrem General: Yes normal to inspection Psych Appearance: grossly normal Course Course Course Narrative: This is a rapid medical exam performed by Ghanshyam Low NP: Additional HPI, ROS, PE not included below will be deferred to primary provider. Patient is a 53-year-old female with reported history of kidney disease, HTN, asthma presenting to the ED with complaint of lower back pain and pressure bilaterally as well as nausea, vomiting and diarrhea. Reports severe kidney disease when incarcerated in the past. Plan: labs, UA Reevaluation(s) Reevaluation #1: patient with normal UA, pain to SI joint and sciatic notch will dc on nsaids and flexeril Time: 20:45 Medical Decision Making Differential Diagnosis Differential Diagnoses: The differential diagnosis associated with the presentation includes (sciatica, lumbago, radicular back pain, UTI pyelonephritis) Admission/Observation Consideration of admission/observation: Escalation of care including admission/observation considered (upon arrival admission was considered) Lab Data 03/04/24 15:43 03/04/24 15:42 Labs: Lab Results 03/04/24 03/04/24 03/04/24 Range/Units 15:42 15:43 20:16 WBC 6.3 (4.8-10.8) X10*3/uL RBC 4.77 (4.20-5.50) X10*6/uL Hgb 13.9 (12.0-16.0) g/dl Hct 40.9 (37.0-47.0) % MCV 85.7 (80.0-98.0) fL MCH 29.1 (27.0-33.0) pg MCHC 34.0 (31.0-35.0) g/dl RDW 13.6 (11.0-16.0) % Plt Count 385 (160-400) X10*3/uL MPV 10.3 (9.4-12.3) fL Immature Gran % (Auto) 0.3 (0.0-0.4) % Neut % (Auto) 61.0 (45-73) % Lymph % (Auto) 28.8 (20-40) % [place] % (Auto) 6.6 (2-11) % Eos % (Auto) 2.7 (0-4) % Baso % (Auto) 0.6 (0-2) % Lymph # (Auto) 1.8 (1.2-4.9) X10*3/uL [place] # (Auto) 0.4 (0.1-1.2) X10*3/uL Eos # (Auto) 0.2 (0.0-0.4) X10*3/uL Baso # (Auto) 0.0 (0.0-0.2) X10*3/uL Abs Immat Gran (auto) 0.02 (0.00-0.03) X10*3/uL Absolute Neuts (auto) 3.8 (2.0-8.3) x10*3/uL Absolute Nucleated RBC 0.000 (0.0-0.012) X10*3/uL Nucleated RBC % (auto) 0.0 (0.0-0.2) /100WBC Sodium 142 (135-145) mmol/L Potassium 3.9 (3.3-5.1) mmol/L Chloride 110 H (96-108) mmol/L Carbon Dioxide 24 (22-29) mmol/L Anion Gap 12 (12-20) BUN 16 (9-16) mg/dL Creatinine 0.84 (0.5-1.4) mg/dL Estim Creat Clear Calc 76.4 Estimated GFR > 60 Random Glucose 88 (60-115) mg/dL Calcium 9.9 (8.4-10.2) mg/dL Total Bilirubin 0.3 (0.0-1.0) mg/dL AST 16 (5-31) U/L ALT 22 (0-31) U/L Alkaline Phosphatase 58 (39-117) U/L Total Protein 7.4 (6.5-8.0) g/dL Albumin 4.4 (3.5-5.0) g/dL Beta HCG, Quant < 2 mIU/mL Urine Color Yellow Urine Appearance Clear Urine pH 5.5 (5.0-9.0) Ur Specific [place] 1.020 (1.005-1.025) Urine Protein Negative (Neg-Trace) mg/dL Urine Glucose (UA) Negative (Negative) mg/dL Urine Ketones Trace (Negative) mg/dL Urine Blood Negative (Negative) Urine Nitrite Negative (Negative) Ur Leukocyte Esterase Negative (Negative) Tests considered The following testing was considered but not selected: MRI of spine considered but patient is nonfocal Prescription Management I considered prescription management with: Antibiotic (no evidence of urine infection so no abx given) Discharge Plan Discharge Clinical Impression: Acute radicular low back pain, Back pain Patient Disposition: Home, Self-Care Instructions: Acute Low Back Pain (ED), Lumbar Radiculopathy (ED) Prescriptions: New cyclobenzaprine 10 mg tablet 10 mg PO TID Qty: 10 0RF naproxen [Naprosyn] 500 mg tablet 500 mg PO BID Qty: 20 0RF Referrals: Stefanie Conteh [employer] [Primary Care Provider] - 5 days Print Language: Guinean
[2024-03-04 15:47] LABS: MANUAL DIFF FLAG NO
[2024-03-04 15:59] LABS: Basophils Percent Auto 0.6 % (0-2); Eosinophils Absolute Auto 0.2 X10*3/uL (0.0-0.4); Eosinophils Percent Auto 2.7 % (0-4); Hematocrit 40.9 % (37.0-47.0); Hemoglobin 13.9 g/dl (12.0-16.0); Imm Gran Abs Auto 0.02 X10*3/uL (0.00-0.03); Imm Gran Pct Auto 0.3 % (0.0-0.4); Lymphocytes Absolute Auto 1.8 X10*3/uL (1.2-4.9); Lymphocytes Percent Auto 28.8 % (20-40); Mean Corpuscular Hemoglobin 29.1 pg (27.0-33.0); Mean Corpuscular Volume 85.7 fL (80.0-98.0); Mean Platelet Volume 10.3 fL (9.4-12.3); Monocytes Absolute Auto 0.4 X10*3/uL (0.1-1.2); Monocytes Percent Auto 6.6 % (2-11); Neutrophils Absolute Auto 3.8 x10*3/uL (2.0-8.3); Platelet Count 385 X10*3/uL (160-400); Red Blood Count 4.77 X10*6/uL (4.20-5.50); Red Cell Distribution Width 13.6 % (11.0-16.0); White Blood Count 6.3 X10*3/uL (4.8-10.8)
[2024-03-04 16:03] LABS: Alanine Aminotransferase 22 U/L (0-31); Albumin Level 4.4 g/dL (3.5-5.0); Alkaline Phosphatase 58 U/L (39-117); Anion Gap 12 (12-20); Aspartate Amino Transferase 16 U/L (5-31); Bilirubin Total 0.3 mg/dL (0.0-1.0); Blood Urea Nitrogen 16 mg/dL (9-16); Calcium 9.9 mg/dL (8.4-10.2); Carbon Dioxide 24 mmol/L (22-29); Chloride 110 mmol/L (96-108); Creatinine Clr Calc Pharmacy 76.4; Estimated Glomerular Filt Rate > 60; Glucose Random 88 mg/dL (60-115); Potassium 3.9 mmol/L (3.3-5.1); Sodium 142 mmol/L (135-145); Total Protein 7.4 g/dL (6.5-8.0)
[2024-03-04 16:21] LABS: HCG Quantitative < 2 mIU/mL
[2024-03-04 20:07] VITALS: BP 135/73; PULSE 72; RESP 18; TEMP 36.6; O2SAT 98
--- NOTE | 2024-03-04 20:09 | MHC.EDTECH ---
This tech took over care of patient at this time,hourly rounds and vitals completed,patient ambulated to the bathroom with a steady gait to give urine sample.
--- NOTE | 2024-03-04 20:17 | MHC.EDTECH ---
Urine sample obtained and sent to lab.
[2024-03-04 20:26] LABS: Appearance Urine Clear; Color Urine Yellow; Glucose Urine UA Negative (Negative); Leukocyte Esterase Urine Negative (Negative); Nitrite Urine Negative (Negative); PH 5.5 (5.0-9.0); Urine Blood Negative (Negative); Urine Ketones Trace mg/dL (Negative); Urine Protein Negative (Neg-Trace)
[2024-03-04] MEDS: Cyclobenzaprine HCl 10 MG TABLET PO (21:04)
[2024-03-04] MEDS: Ketorolac Tromethamine 60 MG/2 ML VIAL IM (21:05)
[2024-03-04 21:19] VITALS: BP 129/75; PULSE 79; RESP 16; TEMP 36.6; O2SAT 97
== END 2024-03-04 21:20 | disposition home or self-care (01) ==
PROVIDERS: Registered Nurse Emergency; Emergency Provider Emergency Medicine; PCP Nurse Practitioner Primary Care
DX: M54.50 Low back pain, unspecified (principal); I10 Essential (primary) hypertension; J45.909 Unspecified asthma, uncomplicated
CPT/HCPCS: 36415; 80053; 81003; 84702; 85025; 96372; 99284; J1885

== ENCOUNTER 2024-04-15 09:58 | Day surgery (SDC) | payer MEDICAID, SELFPAY ==
[2024-04-15 06:33] VITALS: BMI 27.6
[2024-04-15 10:36] VITALS: BP 135/82; PULSE 65; RESP 18; TEMP 36.9; O2SAT 98
--- NOTE | 2024-04-15 13:03 | MHC.SHP ---
Pre-Procedural Eval Section A - 24 Hr Update-Section A only Date of Service: 04/15/24 The patient is an INPATIENT: No Changes since office visit: No Cold of Flu in the past 2 weeks, No New Medical Problems, No Changes in Medication and No Patient answered all questions The patient has been examined within 24 hours of the surgical procedure. The History & Physical has been completed within 30 days and I have reviewed it.: No Section B - Complete if H&P > 30 days Chief Complaint: Trigger thumb, right thumb Allergies: Allergies Allergy/AdvReac Type Severity Reaction Status Date / Time No Known Allergies Allergy Verified 03/04/24 15:31 Plan Diagnosis/Plan: Unchanged I have reviewed the history and physical and performed a pertinent physical examination on my patient. No changes have occurred unless specified. Time Spent With Patient Time: Total time managing care of this patient today ____ minutes.
--- NOTE | 2024-04-15 13:04 | W.PM.OPN ---
Operative Note Operative Note Date of Service: 04/15/24 Narrative: Operative Note Preop diagnosis: 1. Right trigger thumb Postop diagnosis: Same Procedure: 1. Right thumb A1 patrick release Surgeon: Angeles Magdaleno MD Anesthesia: local block using 1% lidocaine with epinephrine Findings: No locking or catching after A1 patrick release EBL: Less than 5 mL Tourniquet time: None Specimens: None Complications: None Disposition: Brought to recovery room in stable condition Plan: Follow-up for 10-14 days for wound check and suture removal Indications: The patient is 54 years old, with a right trigger thumb that has been unresponsive to nonoperative management. The risks and benefits of operative treatment including but not limited to risk of damage to blood vessels, nerves, tendons, infection, persistent pain, persistent symptoms, recurrence or possible need for additional surgery were discussed with the patient and the patient wishes to proceed with surgery. Procedure: Once consent was obtained a local block was performed in the preop area using a combination of 1% lidocaine with epinephrine. The patient was then brought back to the operating suite and placed on the operative table in supine position. The right upper extremity was prepped and draped in a standard surgical fashion. Once assured that we had a good block, a 1.5 cm oblique incision was made centered over the A1 patrick of the right thumb . The incision was made through the skin to the subcutaneous tissues using a #15 blade. Careful dissection was made down to the level of the A1 patrick using tenotomy scissors, with care being taken to protect the nearby neurovascular structures. A longitudinal incision was made in the A1 patrick 1st using a #15 blade, then using tenotomy scissors under direct visualization. The A1 patrick was noted to be thickened. Following our A1 patrick release, we no longer saw any locking or catching of the digit with flexion and extension. Once satisfied with our A1 patrick release the wound was copiously irrigated with normal saline and hemostasis was obtained with a brief period of local pressure. The skin edges were reapproximated with some 5.0 nylon suture material and a sterile dressing was applied. The patient appears to have tolerated the procedure well and with no complications. All digits were well vascularized at the conclusion of the case.
[2024-04-15 13:51] VITALS: BP 140/99; PULSE 60; RESP 16; O2SAT 98
== END 2024-04-15 14:11 | disposition home or self-care (01) ==
PROVIDERS: PCP Nurse Practitioner Primary Care; Visit Provider Orthopaedic Surgery
PROC: (CPT 26055; principal; 2024-04-15 12:40)
DX: M65.311 Trigger thumb, right thumb (principal); M79.89 Other specified soft tissue disorders; I10 Essential (primary) hypertension; E78.00 Pure hypercholesterolemia, unspecified; N28.9 Disorder of kidney and ureter, unspecified; J45.909 Unspecified asthma, uncomplicated
CPT/HCPCS: 26055; J0171; J2795

== ENCOUNTER → 2024-04-15 09:58 | Outpatient (BNV) | payer MEDICAID, SELFPAY | PROVIDERS: PCP Nurse Practitioner Primary Care; Visit Provider Orthopaedic Surgery | DX: M65.311 Trigger thumb, right thumb (principal) | CPT/HCPCS: 26055 ==

== ENCOUNTER 2024-05-01 12:24 | Outpatient (AMB) | payer MEDICAID, SELFPAY ==
--- NOTE | 2024-05-01 12:30 | MHC.OFFVIS ---
Vital Signs 05/01/24 12:36 Handedness Right Intake Visit Reasons: PO RT thumb trigger 04/15/24 AR Intake Note: Lisandra is a 54 year old right hand dominant female who present today post operatively S/P Right thumb trigger release 04/15/24. Patient reports she is having pain with movement of her right thumb, she also has swelling. Due to her pain she is still unable to bend her thumb and perform her ADLs. She has been applying antibiotic ointment daily. Denies numbness and tingling. Sutures have been removed and steri strips applied. Allergies No Known Allergies Allergy (Verified 05/01/24 12:37) Medication List - Last Reconciled 05/01/24 by Des Gilliam PA-C No Known Home Meds HPI HPI PO RT thumb trigger 04/15/24 AR: Details: Lisandra is a 54-year-old right hand dominant female who present today post operatively S/P right thumb trigger release on 04/15/24. She states that she experiences pain with movement of her right thumb. She mentions edema as well. She is still unable to bend her thumb and perform her ADLs secondary to pain. She has been applying antibiotics ointment daily. She denies numbness and tingling. She states that overall she is doing well. She reports no new concerns today. [facility] Medical History Hypertension Kidney disease High cholesterol Asthma Social History Alcohol intake: never Comment: counts correct Patient Tobacco Use Status: Tobacco use Unknown Current occupation: right handed Review of Systems Const All systems reviewed & are unremarkable except as noted in HPI and below Physical Exam Const General: cooperative, healthy appearing, comfortable and no acute distress Orientation/consciousness: patient oriented x3 Neck Neck: Yes normal visual inspection and Yes no JVD Chest Chest palpation & inspection: normal inspection of the chest Resp Effort & Inspection: normal respiratory effort Auscultation: clear to auscultation bilaterally, crackles (no), rales (no), rhonchi (no) and wheezes (no) Cardio Jugular venous distension: no JVD Rate: regular rate Rhythm: regular rhythm Heart sounds: S1 normal heart sound present, S2 normal heart sound present, Murmur heart sound present (no) and Rub heart sound present (no) Neuro General: patient oriented x3 Extrem Other: Right thumb incision is clean, dry and intact. No erythema or drainage. No catching or locking. She is able to perform opposition of the thumb. She does have difficulty with making a fist. NVI. General: Yes normal to inspection, Yes no pedal edema and Yes no calf tenderness Psych Appearance: grossly normal Mental Status: mental status grossly normal Speech and movement: Normal speech and movement present Assessment & Plan Assessment & Plan (1) Trigger thumb, right thumb: Code(s): M65.311 - Trigger thumb, right thumb Category: Medical Plan Sutures removed today, Steri-strips applied. I did educate her on the importance of working with occupational therapy to improve her range of motion and order tracer strength. She should increase activities as tolerated. She should continue to avoid submerging the hand underwater for the next 7 to 10 days, and she will see us back if there are any questions or concerns, otherwise follow-up as needed. Orders: Orders OT Evaluation and Treatment Today M65.311 - Trigger thumb, right thumb Patient Instructions: Scribed for Des Gilliam PA-C, by Taras Westbrook pediatric medical assistant, on 05/01/2024 at 12:45 PM EST. I, Des Gilliam PA-C, have personally reviewed and agree with the information entered by the scribe. Coding Level of Care Code Global (80116) Diagnoses Trigger thumb, right thumb M65.311
== END 2024-05-01 13:03 | disposition home or self-care (01) ==
PROVIDERS: PCP Nurse Practitioner Primary Care; Visit Provider Physician Assistant
DX: M65.311 Trigger thumb, right thumb (principal)
CPT/HCPCS: 99024

== ENCOUNTER → 2024-05-01 12:24 | Outpatient (BNVA) | payer MEDICAID, SELFPAY | PROVIDERS: PCP Nurse Practitioner Primary Care; Visit Provider Physician Assistant | DX: M65.311 Trigger thumb, right thumb (principal) | CPT/HCPCS: 99212 ==

== ENCOUNTER 2024-05-08 12:52 | Outpatient (RCR) | payer MEDICAID, SELFPAY ==
--- NOTE | 2024-05-08 13:55 | MHC.OT.EP ---
[address] [phone] Occupational Therapy Plan of Care Patient Name: Lisandra Haley Date of Evaluation: 05/08/24 Diagnosis: S/P TRIGGER THUMB RELEASE Pain Location: R THUMB 6/10 AT REST; 8/10 WITH USE Pain Score: 6-8/10 Pain Scale Used: Numeric (0 - 10) Aggravating Factors: GENERAL USE Alleviating Factors: NO LONGER USING PAIN MEDICATION Assessment: MS HALEY IS THREE WEEKS POST OP R TRIGGER THUMB RELEASE WITH DR SAUCEDO. SHE REPORTS MODERATE TO HIGH PAIN AT REST AND WITH ACTIVITY. SHE HAS INITIATED SOME ROM AND IS IMPROVING WITH HER DAILY ACTIVITIES. ONGOING SKILLED OT IS WARRANTED TO ADDRESS SCAR MOBILIZATION, ROM, STRENGTH, DESENSITIZATION, EDEMA MANAGEMENT AND RETURN TO ADLs/IADLs. Frequency and Duration: The patient will be seen 1X/WEEK FOR 6 WEEKS Short Term Goals: IND HEP IND SCAR MOBILIZATION IND EDEMA MANAGEMENT STRATEGIES REPORT <4/10 PAIN WITH ADLs Custodial Goals: TOLERATE >8 MINS OF ROUGH TEXTURES TO R THUMB R GROSS GRASP >25 POUNDS TOLERATE CARRYING ITEMS >10 POUNDS FOR SIMULATED IADLs Treatment Plan: Therapeutic Exercise Therapeutic Activity Home Exercise Program Splinting Neuro Re-ed Patient Education Desensitization/Sensory Re-ed Edema Control ADL Training Ultrasound NMES Iontophoresis Paraffin Fluidotherapy MHP Cold Packs Joint Mobilization Soft Tissue Mobilization Kinesiotaping Other (see comments) Electronically Signed By: NELY SANDHU OTR/L Please Sign and return to therapist. Thank you once again for your referral.
--- NOTE | 2024-05-22 13:34 | MHC.OT.DC ---
[address] [phone] F: [phone] Occupational Therapy Discharge Note Patient Name: Lisandra Haley Provider: Des Gilliam Diagnosis: S/P TRIGGER THUMB RELEASE Date of Surgery: 04/15/24 Date of Evaluation: 05/08/24 Date of Discharge: 05/22/24 Treatments to Date: 1 Cancellations to Date: 0 No Shows to Date: 2 Discharge Status: Visit Non-compliance Discharge Summary: MS HALEY WAS SEEN FOR HER INITIAL EVAL AND DID NOT FOLLOW UP WITH ADDITIONAL OT SESSIONS. WILL BE D/C'D FROM OUTPATIENT OT DUE TO CORE ATTENDANCE POLICY/ NON-COMPLIANCE. Electronically Signed By: NELY SANDHU OTR/L Reviewed/agree with student documentation: N/A Therapist: Please Sign and return to therapist, thank you for your referral.
== END 2024-05-22 13:30 | disposition home or self-care (01) ==
LOC: HO.OT 12:52
PROVIDERS: PCP Nurse Practitioner Primary Care; Visit Provider Physician Assistant
DX: M65.311 Trigger thumb, right thumb (principal)
CPT/HCPCS: 97110; 97165

== ENCOUNTER 2024-07-05 11:42 | Outpatient (REF) | payer MEDICAID, SELFPAY ==
[2024-07-05 13:22] LABS: MANUAL DIFF FLAG NO
[2024-07-05 13:43] LABS: Basophils Percent Auto 0.8 % (0-2); Eosinophils Absolute Auto 0.2 X10*3/uL (0.0-0.4); Eosinophils Percent Auto 3.4 % (0-4); Hematocrit 45.6 % (37.0-47.0); Imm Gran Abs Auto 0.01 X10*3/uL (0.00-0.03); Imm Gran Pct Auto 0.2 % (0.0-0.4); Lymphocytes Absolute Auto 1.6 X10*3/uL (1.2-4.9); Lymphocytes Percent Auto 29.6 % (20-40); Mean Corpuscular HGB Conc 32.9 g/dl (31.0-35.0); Mean Corpuscular Hemoglobin 28.9 pg (27.0-33.0); Mean Corpuscular Volume 87.9 fL (80.0-98.0); Mean Platelet Volume 10.6 fL (9.4-12.3); Monocytes Absolute Auto 0.3 X10*3/uL (0.1-1.2); Monocytes Percent Auto 5.6 % (2-11); Neutrophils Absolute Auto 3.2 x10*3/uL (2.0-8.3); Neutrophils Percent Auto 60.4 % (45-73); Platelet Count 407 X10*3/uL (160-400); Red Blood Count 5.19 X10*6/uL (4.20-5.50); Red Cell Distribution Width 13.6 % (11.0-16.0); White Blood Count 5.3 X10*3/uL (4.8-10.8)
[2024-07-05 14:10] LABS: Cholesterol 255 mg/dL (<200); HDL Cholesterol 46 mg/dL (>40); LDL Cholesterol Calculated 182 mg/dL (<100); Triglycerides 138 mg/dL (<150)
[2024-07-05 14:14] LABS: Estimated Average Glucose 117 mg/dL; Hemoglobin A1c % 5.7 % (<6.0)
[2024-07-05 14:43] LABS: Valproate < 12.5 mcg/mL (50.0-100.0)
[2024-07-06 04:44] LABS: HIV AB/AG Nonreactive (Nonreactive); HIV Num 1 0.04 S/CO (0.00-0.99); ~HepC Num1 0.08 S/CO (0.00-0.79); ~Hepatitis C Antibody Nonreactive (Nonreactive)
[2024-07-09 13:48] LABS: RPR Rapid Plasma Reagin NON-REACTIVE (NON-REACTIVE)
== END 2024-07-05 11:43 | disposition home or self-care (01) ==
LOC: HO.HHCL 11:42
PROVIDERS: Visit Provider Nurse Practitioner Primary Care
DX: F33.1 Major depressive disorder, recurrent, moderate (principal); Z11.3 Encounter for screening for infections with a predominantly sexual mode of transmission; E78.5 Hyperlipidemia, unspecified
CPT/HCPCS: 36415; 80061; 80164; 83036; 85025; 86592; 86803; 87389

== ENCOUNTER 2024-07-30 10:11 | Outpatient (REF) | payer MEDICAID, SELFPAY ==
--- NOTE | ~2024-07-30 | MM_ITS ---
EXAMINATION: MM SCREENING DIGITAL BREAST TOMOSYNTHESIS, BILATERAL CLINICAL INFORMATION: Screening. Asymptomatic. COMPARISON: Mammography: Comparison is made with relevant avialable priors. TECHNIQUE: Digital mammography is performed in craniocaudal and mediolateral oblique views along with computer-aided detection (CAD). Digital breast tomosynthesis is performed in implant-displaced craniocaudal and implant-displaced mediolateral oblique views along with computer-aided detection (CAD). FINDINGS: The breasts are heterogeneously dense, which may obscure small masses (ACR BI-RADS breast composition Category c). Bilateral implants which decreases the sensitivity of mammography mammography. Marker clip in the lower inner left breast. Bilateral circumscribed oval masses which wax and wane consistent with benign fibrocystic changes. There are no significant masses, abnormal calcifications, or other abnormalities. MM/MM tomosynthesis screen imp BI IMPRESSION: There are no significant changes from prior study. ASSESSMENT: BI-RADS BI-RADS 2 - Benign Findings RECOMMENDATION: Routine annual mammography screening. 1 year F/U This patient's information was entered into a reminder system with a target due date for their next mammogram. Electronically signed by: Gladys Myers DO 08/09/2024 10:47 AM EDT
== END 2024-07-30 10:12 | disposition home or self-care (01) ==
LOC: HO.MAMMO 10:11
PROVIDERS: PCP Nurse Practitioner Primary Care; Visit Provider Nurse Practitioner Primary Care
DX: Z12.31 Encounter for screening mammogram for malignant neoplasm of breast (principal)
CPT/HCPCS: 77063; 77067

== ENCOUNTER → 2024-07-30 10:30 | Outpatient (BNV) | payer MEDICAID, SELFPAY | PROVIDERS: PCP Nurse Practitioner Primary Care; Visit Provider Internal Medicine | DX: Z12.31 Encounter for screening mammogram for malignant neoplasm of breast (principal) | CPT/HCPCS: 77063; 77067 ==

== ENCOUNTER 2024-09-07 07:47 | Emergency (ER) | payer MEDICAID, SELFPAY ==
[2024-09-07 07:57] VITALS: BP 139/88; PULSE 84; RESP 20; TEMP 36.3; O2SAT 97; BMI 31.3
--- NOTE | 2024-09-07 08:05 | ED_ITS ---
HPI - General Adult General Chief complaint: Upper Respiratory Symptoms Stated complaint: sore throat Time Seen by Provider: 09/07/24 08:05 Source: patient Mode of arrival: ambulatory Limitations: no limitations History of Present Illness ED Provider: Devante CARDOSO narrative: Patient is a 54-year-old female presenting to the ED with complaint of sore throat, headache, body aches, cough since 3am. Reports other family members at home sick with similar symptoms but they have not been tested. Denies fevers. Has not taken any OTC medications for her symptoms. complaint: sore throat Onset (ago): hour(s) Treatments prior to arrival: none Related Data Home Medications ?Medication ?Instructions ?Recorded ?Confirmed No Known Home Meds 05/01/24 05/01/24 Allergies Allergy/AdvReac Type Severity Reaction Status Date / Time No Known Allergies Allergy Verified 09/07/24 07:59 Review of Systems Review of Systems: As per HPI. Yes all other systems are reviewed and are negative Constitutional: Constitutional: Reports as per HPI [facility] Past Medical History Medical History Hypertension Kidney disease High cholesterol Asthma Social History Social History Alcohol intake: never Comment: counts correct Patient Tobacco Use Status: Tobacco use Unknown Advance Directives: No Advance Directives Information Provided: Yes Do you have a plan to hurt others: No Plan Current occupation: right handed Physical Exam ED Vital Signs: Vital Signs - 24 hr 09/07/24 07:57 Temperature 97.3 F Pulse Rate 84 Respiratory Rate 20 Blood Pressure 139/88 Pulse Oximetry 97 Oxygen Delivery Method Room Air BMI result Body Mass Index 31.3 Vital signs have been reviewed and appear to be correct. Blood pressure normal. Heart rate normal. Respiratory rate normal. Temperature normal. Oxygen saturation normal. Const General: cooperative, healthy appearing and no acute distress Orientation/consciousness: oriented to person, oriented to place, oriented to time and patient oriented x3 Limitations: no limitations HENMT Head: Yes normocephalic and Yes atraumatic Ears: external ears normal, TM's normal bilaterally and EAC's normal General nose exam: Normal external nose present Face and sinus: Yes face symmetric Mouth: Normal oral and palatal mucosa present, lip normal, tongue normal, oropharynx normal, moist mucous membranes, no drooling, no muffled voice and no trismus Throat: Yes uvula midline, Yes posterior oropharynx abnormal (erythema) and No uvular edema Eyes Pupils: Equal, round and reactive pupils present Neck Neck: Yes normal visual inspection, Yes no lymphadenopathy and Yes supple Resp Effort & Inspection: normal respiratory effort and able to speak in complete sentences Auscultation: clear to auscultation bilaterally Cardio Rate: regular rate Rhythm: regular rhythm Heart sounds: S1 normal heart sound present and S2 normal heart sound present GI Palpation (GI): Soft to palpation and nontender Auscultation: normoactive bowel sounds General: Yes no CVA tenderness Back/Spine/Pelvis Back: no CVA tenderness Skin General skin exam: elasticity normal and turgor normal Neuro General: oriented to person, oriented to place, oriented to time, patient oriented x3, moves all extremities, no focal motor deficits and CN's II-XI intact bilaterally Cranial nerves: Yes Equal, round and reactive pupils present Cognition (Neuro): normal cognition Extrem General: Yes full ROM, Yes no pedal edema and Yes no calf tenderness Psych Mental Status: mental status grossly normal Affect: normal affect Thought process: Normal thought process present Medications Administered Discontinued Medications Generic Name Dose Route Start Last Admin Trade Name Freq PRN Reason Stop Dose Admin Acetaminophen 650 mg 09/07/24 08:10 09/07/24 08:24 Acetaminophen 325 Mg Tablet PO 09/07/24 08:11 650 mg ONCE ONE Administration Ibuprofen 400 mg 09/07/24 08:10 09/07/24 08:24 Ibuprofen 400 Mg Tablet PO 09/07/24 08:11 400 mg ONCE ONE Administration Medical Decision Making Medical Decision Making [facility] Narrative: Patient is a 54-year-old female presenting to the ED with complaint of sore throat, headache, body aches, cough since 3am. On exam patient is awake, A+Ox3, VS WNL, afebrile, normal neurological exam without focal deficits, physical exam findings as above. Given reported symptoms and physical exam findings, initial differential includes strep versus viral pharyngitis, other viral illness, covid, flu, RSV. Do not suspect AUTOMOTIVE SERVICE PROFESSIONAL/RPA. Viral and strep swabs negative. Patient updated on results. Advised Tylenol/ibuprofen, warm salt water gargles, honey. Follow up with PCP. Return precautions discussed at bedside. Patient verbalized understanding of and agreement with plan. Differential Diagnosis Differential Diagnoses: The differential diagnosis associated with the presentation includes As per [facility] Lab Data [facility] Lab Attestation statement: I reviewed the patient's lab results. As per [facility] Labs: Lab Results 09/07/24 Range/Units 08:03 Influenza Type A (PCR) NEGATIVE (Negative) Influenza Type B (PCR) NEGATIVE (Negative) RSV RNA Qual (PCR) NEGATIVE (Negative) SARS-CoV-2 RNA (RT-PCR) NEGATIVE (Negative) S. pyogenes GrpA JEY Negative (Negative) External Record Review External record reviewed: Inpatient record, Office record and Outpatient record Discharge Plan Discharge Clinical Impression: Viral infection Patient Disposition: Home, Self-Care Instructions: Viral Syndrome (ED), Pharyngitis (ED) Additional Instructions: You were evaluated in the emergency department today for sore throat and cough. Your Covid, flu, RSV, and strep tests were all negative. Your symptoms are likely related to a viral illness which will resolve on its own with time and rest. You should ensure adequate fluid intake, and can use Tylenol 650 mg or ibuprofen 600 mg every 6 hours as needed for fever or discomfort. We recommend that you gargle with warm salt water several times daily. You can also use a teaspoon of honey several times daily. Please follow-up with your primary care provider this week. Return to the emergency department if you develop chest pain, worsening shortness of breath, difficulty swallowing, fever 100.4? F or greater or any other concerning symptoms. Prescriptions: No Action No Known Home Meds Print Language: Hungarian
[2024-09-07 08:16] LABS: IDNOW Serial# 58CA691E; Strep A Nucleic Acid Negative (Negative)
[2024-09-07] MEDS: Acetaminophen 325 MG TABLET 650 MG PO (08:24)
[2024-09-07] MEDS: Ibuprofen 400 MG TABLET PO (08:24)
[2024-09-07 08:51] LABS: Influenza A PCR NEGATIVE (Negative); Influenza B PCR NEGATIVE (Negative); Resp Syncy Virus RNA Qual PCR NEGATIVE (Negative); SARS COV2 PCR INHOUSE NEGATIVE (Negative)
[2024-09-07 09:39] VITALS: BP 139/88; PULSE 84; RESP 20; TEMP 36.3; O2SAT 97
== END 2024-09-07 09:39 | disposition home or self-care (01) ==
PROVIDERS: Emergency Provider Emergency Medicine; PCP Nurse Practitioner Primary Care
DX: B34.9 Viral infection, unspecified (principal); J02.9 Acute pharyngitis, unspecified; Z03.818 Encounter for observation for suspected exposure to other biological agents ruled out; J45.909 Unspecified asthma, uncomplicated
CPT/HCPCS: 0241U; 87651; 99283

== ENCOUNTER 2024-10-01 06:58 | Emergency (ER) | payer MEDICAID, SELFPAY ==
[2024-10-01 07:00] VITALS: BP 146/88; PULSE 76; RESP 16; TEMP 37; O2SAT 98; BMI 27.2
--- NOTE | 2024-10-01 07:25 | PC.NURSE ---
swabs obtained and sent
--- NOTE | 2024-10-01 07:38 | ED.GENADULT ---
HPI - General Adult General Chief complaint: General Medical Stated complaint: soar throat, Pain in ear Time Seen by Provider: 10/01/24 07:23 Source: patient Mode of arrival: ambulatory History of Present Illness ED Provider: Mur[facility] narrative: 54-year-old female shows of with sore throat since this morning and associated left ear pain, reports sick contacts of flu but otherwise denies any nausea or vomiting. Related Data Home Medications ?Medication ?Instructions ?Recorded ?Confirmed No Known Home Meds 05/01/24 05/01/24 Allergies Allergy/AdvReac Type Severity Reaction Status Date / Time No Known Allergies Allergy Verified 10/01/24 07:04 Review of Systems Review of Systems: Pertinent positives and negatives as stated in [facility] Past Medical History Source: nursing notes reviewed Medical History Hypertension Kidney disease High cholesterol Asthma Social History Social History Alcohol intake: never Comment: counts correct Patient Tobacco Use Status: Tobacco use Unknown Advance Directives: No Advance Directives Information Provided: Yes Current occupation: right handed Physical Exam ED Vital Signs: Vital Signs - 24 hr 10/01/24 07:00 Temperature 98.6 F Pulse Rate 76 Respiratory Rate 16 Blood Pressure 146/88 H Pulse Oximetry 98 Oxygen Delivery Method Room Air BMI result Body Mass Index 27.2 VITAL SIGNS: Reviewed. GENERAL: Well developed, well nourished, in no acute distress. HEAD: Normocephalic/atraumatic EYES: PERRLA, EOMI EARS: Ext canals without abnormality, TMs non-bulging and non-erythematous NOSE: Nares patent bilateral OROPHARYNX: no oral lesions noted, posterior pharynx clear but erythematous with noted tonsillar erythema NECK: Supple, no adenopathy LUNGS: Normal breath sounds. No adventitious sounds or accessory muscle use. SpO2<98> CARDIOVASCULAR: Regular rate and rhythm without noted murmurs ABDOMEN: Soft, non-tender, non-distended with bowel sounds. MUSCULOSKELETAL: No tenderness, deformities, or effusions noted on gross inspection. EXTREMITIES: No cyanosis, clubbing or edema. SKIN: Inspection of the skin reveals no rashes NEUROLOGIC: Alert and oriented x 4. Strength and sensation to light touch were grossly intact x 4. Medical Decision Making Medical Decision Making [facility] Narrative: 54-year-old female with history and clinical presentation, DDx: Viral pharyngitis, strep pharyngitis, lower clinical suspicion for AOM. Viral testing is negative for COVID/RSV/influenza, rapid strep pharyngitis is negative as well. Patient provided with combination analgesics as well as Cepacol for symptom relief. My interpretation is patient has a viral illness. Differential Diagnosis Differential Diagnoses: The differential diagnosis associated with the presentation includes Please see above Admission/Observation Consideration of admission/observation: Escalation of care including admission/observation considered Patient does not meet inpatient level of care. Lab Data [facility] Lab Attestation statement: I reviewed the patient's lab results. See above Labs: Lab Results 10/01/24 Range/Units 07:19 Influenza Type A (PCR) NEGATIVE (Negative) Influenza Type B (PCR) NEGATIVE (Negative) RSV RNA Qual (PCR) NEGATIVE (Negative) SARS-CoV-2 RNA (RT-PCR) NEGATIVE (Negative) S. pyogenes GrpA JEY Negative (Negative) Discharge Plan Discharge Clinical Impression: Acute viral syndrome Patient Disposition: Home, Self-Care Instructions: Viral Syndrome (ED) Additional Instructions: Resume home medications as prescribed. Your workup today was reassuring although you likely have a viral syndrome and it is simply not declaring itself. You should continue to drink plenty of fluids intake [id number] Tylenol/ibuprofen. Return to the ER for any worsening of your symptoms. Prescriptions: No Action No Known Home Meds Referrals: Stefanie Conteh SIZING MACHINE TENDER [Primary Care Provider] - Print Language: Urdu
[2024-10-01 07:41] LABS: IDNOW Serial# 6674DD1D; Strep A Nucleic Acid Negative (Negative)
[2024-10-01 08:10] LABS: Influenza A PCR NEGATIVE (Negative); Influenza B PCR NEGATIVE (Negative); Resp Syncy Virus RNA Qual PCR NEGATIVE (Negative); SARS COV2 PCR INHOUSE NEGATIVE (Negative)
[2024-10-01] MEDS: Ibuprofen 400 MG TABLET PO (08:30)
[2024-10-01] MEDS: Acetaminophen 325 MG TABLET 975 MG PO (08:30)
[2024-10-01] MEDS: Throat Lozenge, Medicated LOZENGE 1 LOZENGE MUCOUS MEM (08:30)
[2024-10-01 08:41] VITALS: BP 146/88; PULSE 76; RESP 16; TEMP 37; O2SAT 98
== END 2024-10-01 08:42 | disposition home or self-care (01) ==
PROVIDERS: Emergency Provider Student in an Organized Health Care Education/Training Program; PCP Nurse Practitioner Primary Care
DX: B34.9 Viral infection, unspecified (principal); J02.9 Acute pharyngitis, unspecified; H92.02 Otalgia, left ear; Z03.818 Encounter for observation for suspected exposure to other biological agents ruled out
CPT/HCPCS: 0241U; 87651; 99283

== ENCOUNTER 2024-12-06 13:03 | Outpatient (REF) | payer MEDICAID, SELFPAY ==
--- NOTE | ~2024-12-06 | US_ITS ---
EXAMINATION: US PELVIS CLINICAL INFORMATION: Right lower quadrant pain. COMPARISON: No priors. TECHNIQUE: Ultrasound of the pelvis is performed using both transabdominal and transvaginal transducers along with Doppler. Transvaginal imaging is performed due to inadequate visualization transabdominally. FINDINGS: Uterus: The uterus is anteverted and measures 8 x 4 x 5 cm. There is an intrauterine contraceptive device in place. The endocervical canal and cervix appeared normal with the small nabothian cysts. The double wall endometrial thickness is 5 mm. Heterogeneous nodular myometrium. There are 3 heterogeneous mixed echotexture nodular lesions within the myometrium of the fundus and body of the uterus, the largest measures 2.4 cm. Adnexa: Both ovaries are visualized. There is normal color flow to the adnexa. There is no ovarian torsion. There is no pelvic ascites or fluid collection. Right ovary measures 2 x 1 x 2 cm. Volume: 2 cc. Left ovary measures 2 x 2 x 1 cm. Volume: 3 cc. US/US pelvic and transvaginal IMPRESSION: Multiple uterine fibroids, largest 2.4 cm. No ovarian torsion. Intrauterine contraceptive device in place. Electronically signed by: Darryl Srivastava MD 12/06/2024 02:17 PM JUSTIN
--- OUTSIDE RECORDS SUMMARY | 2024-12-06 15:05 | XMS_ITS | Encounter Summary ---
Demographics Address [address] [place] [address] Home Phone Preferred Language es Marital Status Single Yazdanism Affiliation Unknown Race Unknown Ethnic Group Unknown Author Organization [facility] Address [address] [place] [address] Phone Care Team Providers Care Quality Control Projectionist Name Role Phone Stefanie Conteh NP Primary Care Provider Roby e Encounter Details Date Type Department Care Team (Late st Contact Info) Description 07/13/2022 Documentation Only [facility] [address] [place] [address] Vero Gillis PA Social History Tobacco Use Types Packs/Day Years Used Date Smoking Tobacco: Every Day Comments Unknown Sex and Gender Information Value Date Recorded Sex Assigned at Not on file Legal Sex Female 4:37 PM EST Gender Identity Not on file Sexual Orientation Not on file documented as of this encounter Plan of Treatment Upcoming Encounters Date Type Department Care Team (Late st Contact Info) Description 05/14/2025 10:00 AM EDT Office Visit [facility] [address] [place] [address] Kenny Teran MD [address] [place] [address] [place] [address] documented as of this encounter Visit Diagnoses Not on filedocumented in this encounter Care Teams Quality Control Projectionist Relationship Specialty Start Date End Date Stefanie Conteh, ROMAN PCP - General Nurse Practitioner 01/03/22 documented as of this encounter
--- OUTSIDE RECORDS SUMMARY | 2024-12-06 15:05 | XMS_ITS | Encounter Summary ---
Demographics Address [address] [place] [address] Home Phone Preferred Language es Marital Status Single Buddhist Affiliation Unknown Race Unknown Ethnic Group Unknown Author Organization [facility] Address [address] [place] [address] Phone Care Team Providers Care National Recruiter Name Role Phone Stefanie Conteh NP Primary Care Provider Roby mallory Encounter Details Date Type Department Care Team (Late st Contact Info) Description 01/04/2022 Documentation Only [facility] [address] [place] [address] Vero Gillis PA Social History [...] Visit [facility] [address] [place] [address] Kenny Teran MD [address] [place] [address] [place] [address] documented as of this encounter Visit Diagnoses Not on filedocumented in this encounter Care Teams National Recruiter Relationship Specialty Start Date End Date Stefanie Conteh, ROMAN PCP - General Nurse Practitioner 01/03/22 documented as of this encounter
--- OUTSIDE RECORDS SUMMARY | 2024-12-06 15:05 | XMS_ITS | Encounter Summary ---
Demographics Address [address] [place] [address] Home Phone Mobile Phone Email Address Preferred Language en Marital Status Single Druze Affiliation Unknown Race Other Race Ethnic Group Unknown Author Organization [employer] Address [address] [facility] 7t [place] [address] Care Team Providers Care Av Specialist Name Role Phone Stefanie Conteh Primary Care Provider [phone] Reason for Visit * Reason Onset Date Comments chart prep 11/20/2024 Encounter Details Date Type Department Care Team ([facility] Contact Info) Description 11/20/2024 Telephone [facility] [address] [place], [place] [phone] Mana Ferrell MA chart prep Social History Tobacco Use Types Packs/Day Years Used Date Smoking Tobacco: Former Cigarettes Smokeless Tobacco: Never Alcohol Use Standard Drinks/Week Comments Not Currently 0 (1 standard drink = 0.6 oz pur e alcohol) Depression Answer Date Recorded Patient Health Questionnaire-9 Score 17 10/04/2024 Patient Health Questionnaire-9 Score 17 10/04/2024 Last PHQ-9: Questionnaire Data Not on file 1 12/05/2023 Housing Stability Answer Date Recorded What is your housing situation today? I have naila pearl 11/20/[address] you li ve. Do you have problems with any of the following? Pests such as bugs, ants, or mice;Mold 11/20/2024 Food Insecurity Answer Date Recorded Within the past 12 months, y ou worried that your food would run out before you got money to buy more: Often true 11/20/2024 Within the past 12 months,th e food you bought just didn't last and you didn't have enough money to get more: Often true 09/2025 Transportation Answer Date Recorded In the past 12 months, has l ack of transportation kept you from medical appts, meetings, work or from getting things needed for daily living? No 11/20/2024 Utilities Answer Date Recorded In the past 12 months, has t he electric, gas, oil or water company threatened to shut off services in your home? Yes 11/20/2024 Depression Answer Date Recorded Patient Health Questionnaire-2 Score 6 10/04/2024 Internet Access Answer Date Recorded Internet Access Q1 Yes 06/28/2024 Internet Access Q2 Not on file 06/28/2024 Comments No Sex and Gender Information Value Date Recorded Sex Assigned at Female 08/08/2022 10:14 AM EDT Legal Sex Female 10:14 AM EDT Gender Identity Female 08/08/2022 10:14 AM EDT Sexual Orientation Straight 08/08/2022 10 :14 AM EDT documented as of this encounter Miscellaneous Notes * Telephone Encounter - Mana Ferrell MA - 11/20/2024 10:37 AM EST Chart Prep Labs: not done Images: ordered 08/15/25 Vaccines due: yes Referrals: Unknown Screenings: colonoscopy Overdue care gaps: Sbirt, SDOH documented in this encounter Plan of Treatment Upcoming Encounters Date Type Department Care Team (Late st Contact Info) Description 12/13/2024 1:15 PM EST Office Visit [facility] [address] [place] [phone] Cami Rosen MD [address] [place] [phone] 02/17/2025 3:30 PM EDT Office Visit [facility] [address] [place] [phone] Stefanie Conteh ANP [address] [place] [phone] documented as of this encounter Visit Diagnoses Not on filedocumented in this encounter Additional Health Concerns Assessment Noted Time PHQ-9 Depression Total Score: 17 024 3:14 PM EST documented as of this encounter Care Teams Av Specialist Relationship Specialty Start Date End Date Stefanie Conteh ANP [address] [place] [phone] PCP - General Family Medicine 09/09/20 Lizbeth Alexander Apprentice Machinist OutsideManager Of Community Relations 05/16/24 documented as of this encounter
--- OUTSIDE RECORDS SUMMARY | 2024-12-06 15:05 | XMS_ITS | Encounter Summary ---
Demographics Address [address] [place] [address] Home Phone Preferred Language es Marital Status Single Hoahaoism Affiliation Unknown Race Unknown Ethnic Group Unknown Author Organization [facility] Address [address] [place] [address] Phone Care Team Providers Care Director Of Solutions Architecture Name Role Phone Stefanie Conteh NP Primary Care Provider Roby e Encounter Details Date Type Department Care Team (Late st Contact Info) Description 07/13/2022 Documentation Only [facility] [address] [place] [address] Flako Briceño MD [address] [place] [address] [place] [address] Social History Tobacco Use Types Packs/Day Years [...] Visit [facility] [address] [place] [address] Kenny Teran MD [address] [place] [address] [place] [address] documented as of this encounter Visit Diagnoses Not on filedocumented in this encounter Care Teams Director Of Solutions Architecture Relationship Specialty Start Date End Date Stefanie Conteh NP PCP - General Nurse Practitioner 01/03/22 documented as of this encounter
--- OUTSIDE RECORDS SUMMARY | 2024-12-06 15:05 | XMS_ITS | Encounter Summary ---
Author Organization [email or web address] Address [address] [facility] 7t [place] [address] Care Team Providers Care Silver Solderer Name Role Phone Stefanie Conteh Primary Care Provider [phone] Reason for Visit * Reason Comments Follow-up Encounter Details Date Type Department Care Team ([facility] Contact Info) Description 11/20/2024 3:45 PM EST Office Visit [facility] [address] [place], [place] [phone] Stefanie Conteh ANP [address] [place] [address] Essential hypertension (Primary Dx); Congenital cystic kidney disease; Chronic kidney disease due to hypertension; Moderate episode of recurrent major depressive disorder (CMS/HCC) Social History Tobacco Use Types Packs/Day Years [...] AM EDT documented as of this encounter Last Filed Vital Signs Vital Sign Reading Time Taken Comments Blood Pressure 134/92 11/20/2024 4:32 PM EST Pulse 90 11/20/2024 4:20 PM EST Temperature 36.3 ??C (97.4 ??F) 11/20/2024 4:20 PM ES T Respiratory Rate 14 11/20/2024 4:20 PM EST Oxygen Saturation 99% 11/20/2024 4:20 PM EST Inhaled Oxygen Concentration - - Weight 72.2 kg (159 lb 3.2 oz) 11/20/2024 4:20 P M EST Height - - Body Mass Index 32.86 08/15/2024 1:06 PM EST documented in this encounter Progress Notes * NILSA Teague - 11/20/2024 3:45 PM EST Subjective Patient ID: Lisandra Hlaey is a 54 y.o. female who presents for Follow-up. HPI Patient here today for blood pressure follow-up. She last took lisinopril last night. She denies any symptoms like chest pain, headache, dizziness or vision changes. She also brings with her paperwork from a cmm operator regarding her disability application. She is trying to get back on disability for her back pain, kidney problems and anxiety and depression. She was incarcerated a few years ago and had disability prior to this but has not had it since. She has not heard about gastroenterology appointment but gave her information today to call to schedule for colonoscopy. She saw her kidney doctor recently who recommended repeat renal ultrasound and revisit in 1 year. Former smoker. Review of Systems Constitutional: Negative for chills and fever. HENT: Negative for sore throat. Respiratory: Negative for cough and shortness of breath. Cardiovascular: Negative for chest pain. Gastrointestinal: Negative for constipation and diarrhea. Endocrine: Negative for polydipsia, polyphagia and polyuria. Genitourinary: Negative for dysuria. Musculoskeletal: Positive for back pain. Objective BP (!) 134/92 (BP Location: Left arm, Patient Position: Sitting, BP Cuff Size: Large adult) Pulse 90 Temp 97.4 ??F (36.3 ??C) (Temporal) Resp 14 Wt 159 lb 3.2 oz (72.2 kg) SpO2 99% BMI 32.86 kg/m?? Physical Exam Constitutional: General: She is not in acute distress. Appearance: Normal appearance. She is not ill-appearing. HENT: Head: Normocephalic and atraumatic. Eyes: General: No scleral icterus. Extraocular Movements: Extraocular movements intact. Pupils: Pupils are equal, round, and reactive to light. Cardiovascular: Rate and Rhythm: Normal rate and regular rhythm. Pulmonary: Effort: Pulmonary effort is normal. No accessory muscle usage or respiratory distress. Neurological: Mental Status: She is alert and oriented to person, place, and time. Psychiatric: Mood and Affect: Mood normal. Behavior: Behavior normal. Assessment/Plan Diagnoses and all orders for this visit: Essential hypertension Above goal </= 130/80. Asked her to please take lisinopril in the morning. Continue with currentdose. Continue to encourage low salt diet, regular exercise, home BP monitoring, compliance with medications. 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 Mauricio our animal health technician RV 3 mo HTN documented in this encounter Plan of Treatment Upcoming Encounters Date Type Department Care Team (Late st Contact Info) Description 12/13/2024 1:15 PM EST Office Visit [facility] [address] [place] [address] [phone] Cami Rosen MD [address] [place] [phone] 02/17/2025 3:30 PM EDT Office Visit [facility] [address] [place] [phone] Stefanie Conteh ANP [address] [place] [address] documented as of this encounter Visit Diagnoses Diagnosis Essential hypertension- Primary Unspecified essential hypertension Congenital cystic kidney disease Unspecified congenital cystic kidney disease Chronic kidney disease due to hypertension Moderate episode of recurrent major depressive disorder (CMS/HCC) documented in this encounter Additional Health Concerns Assessment Noted Time PHQ-9 Depression Total Score: 17 024 3:14 PM EST documented as of this encounter Care Teams Silver Solderer Relationship Specialty Start Date End Date Stefanie Conteh ANP [address] [place] [phone] PCP - General Family Medicine 09/09/20 Lizbeth Alexander Vp Product ManagementAsphalt Still Operator 05/16/24 documented as of this encounter
--- OUTSIDE RECORDS SUMMARY | 2024-12-06 15:05 | XMS_ITS | Clinical Summary ---
Demographics Address [address] [place] [address] Home Phone Preferred Language es Marital Status Single Religion Affiliation Unknown Race Unknown Ethnic Group Unknown Author Organization [facility] [place], Address [address] [place] [address] [place] [address] Phone Care Team Providers Care Washroom Attendant Name Role Phone Stefanie Conteh NP Primary Care Provider Unavailabl e Allergies No known active allergies Medications atorvastatin (LIPITOR) 40 MG tablet Take 1 tablet by mouth 1 (one) time each day 03/29/2017 Active divalproex (DEPAKOTE) 500 MG 24 hr tablet Take 1 tablet by mouth 1 (one) time each day 08/23/2017 Active cholecalciferol (VITAMIN D-3) 50 MCG (1999) capsule TOME KAYLEIGH C PSULA TODOS LOS D 10/23/2020 Active docusate sodium (COLACE) 100 MG capsule Take 100 mg by mouth in the morning and 100 mg in the evening. Active nicotine (NICODERM CQ) 7 MG/24HR Place 1 patch on the skin 1 (one) time each day at the same time Active norethindrone (MICRONOR) 0.35 MG tablet Take 1 tablet by mouth 1 (one) time each day Active risperiDONE (RisperDAL) 2 MG tablet Take 2 mg by mouth in the morning and 2 mg in the evening. Active senna (SENOKOT) 8.6 MG tablet Take 1 tablet by mouth 1 (one) time each day Active hydrOXYzine (VISTARIL) 25 MG capsule Take 25 mg by mouth 3 (three) times a day if needed for itching Active oxyCODONE-aceta minophen (PERCOCET) 5-325 MG per tablet Take 1 tablet by mouth every 6 (six) hours if needed 04/15/2024 Active Active Problems Problem Noted Date Diagnosed Date Edema 07/18/2022 Chronic kidney disease, stage 2 (mild) Adult polycystic kidney 11/12/2020 Chronic kidney disease due to hypertension 12/24 Stage 3a chronic kidney disease 12/25/2019 Cystic kidney disease 12/25/2019 Essential hypertension Overview (01/03/2022): hypertensive nephrosclerosis Resolved Problems Problem Noted Date Diagnosed Date Resolved Date Hypercholesterolemia 12/25/2019 022 Renal stone 12/25/2019 10/12/2021 Family History Relation Status Comments Father Unknown Mother Unknown Social History Tobacco Use Types Packs/Day Years Used Date Smoking Tobacco: Every Day Tobacco Cessation:Ready to Q uit: Not Asked; Counseling Given: Not Answered Comments Unknown Sex and Gender Information Value Date Recorded Sex Assigned at Not on file Legal Sex Female 4:37 PM EST Gender Identity Not on file Sexual Orientation Not on file Last Filed Vital Signs Vital Sign Reading Time Taken Comments Blood Pressure 104/78 05/15/2024 2:32 PM EDT Pulse 74 04/01/2019 12:00 PM EDT Temperature - - Respiratory Rate 16 04/01/2019 12:00 PM EDT Oxygen Saturation - - Inhaled Oxygen Concentration - - Weight 72.8 kg (160 lb 6.4 oz) 05/15/2024 2:32 P M EDT Height 154.9 cm (5' 1 ) 05/15/2024 2:32 PM EDT Body Mass Index 30.31 05/15/2024 2:32 PM EDT Plan of Treatment Upcoming Encounters Date Type Department Care Team (Late st Contact Info) Description 05/14/2025 10:00 AM EDT Office Visit [facility], [address] [place] [address] Kenny Teran MD [address] [facility] [place] [phone] Health Maintenance Due Date Last Done Comments Breast Cancer Screening 1970 Hepatitis B Vaccine (1 of 3 - 19+ 3-dose series) 1990 12/30/2015, 10/28/2009, 12/18/2008, Additional history exists Pneumococcal Vaccine: Pediat rics (0 to 5 Years) and At-Risk Patients (6 to 64 Years) (2 of 2 - PCV) 11/30/2001 11/30/2000 Colorectal Cancer Screening: Annual FOBT 2020 Colorectal Cancer Screening: Colonoscopy 2020 Colorectal Cancer Screening: Sigmoidoscopy 2020 Influenza Vaccine (#1) 2024 4, 06/08/2018, 07/12/2017, Additional history exists Insurance * Guarantor: Lisandra Haley Account Type Relation to Patient Date of Phone Billing Address Personal/Family Self 1970 [address] [place] [address] [place] * Guarantor: Lisandra Haley Account Type Relation to Patient Date of Phone Billing Address Personal/Family Self 1970 [address] [place] [address] * Guarantor: Lisandra Haley Account Type Relation to Patient Date of Phone Billing Address Personal/Family Self 1970 [address] [place] [address] Care Teams Washroom Attendant Relationship Specialty Start Date End Date Stefanie Conteh NP PCP - General Nurse Practitioner 01/03/22
--- OUTSIDE RECORDS SUMMARY | 2024-12-06 15:05 | XMS_ITS | Encounter Summary ---
Demographics Address [address] [facility] [address] [address] [place] [address] Home Phone Mobile Phone Email Address Preferred Language en Marital Status Single Presybeterian Affiliation Unknown Race Other Race Ethnic Group Unknown Author Organization [employer] Address [address] [place] [address] Care Team Providers Care Case Work Aide Name Role Phone Stefanie Conteh Primary Care Provider [phone] Encounter Details Date Type Department Care Team (Latest Contact Info) Description 11/20/2024 Travel Social History Tobacco Use Types Packs/Day Years [...] AM EDT documented as of this encounter Plan of Treatment Upcoming Encounters Date Type Department Care Team (Late st Contact Info) Description 12/13/2024 1:15 PM EST Office Visit [address] [address] Cami Rosen MD [address] [place] [phone] 02/17/2025 3:30 PM EDT Office Visit [facility] [address] [place] [phone] Stefanie Conteh ANP [address] [place] [address] documented as of this encounter Visit Diagnoses Not on filedocumented in this encounter Additional Health Concerns Assessment Noted Time PHQ-9 Depression Total Score: 17 024 3:14 PM EST documented as of this encounter Care Teams Case Work Aide Relationship Specialty Start Date End Date Stefanie Conteh ANP [address] [place] [phone] PCP - General Family Medicine 09/09/20 Lizbeth Alexander Weatherization And Housing InspectorResearch Management Associate 05/16/24 documented as of this encounter
--- OUTSIDE RECORDS SUMMARY | 2024-12-06 15:05 | XMS_ITS | Encounter Summary ---
Author Organization [employer] Address [address] [facility] [address] [place] [address] Care Team Providers Care Family Service Center Director Name Role Phone Stefanie Conteh Primary Care Provider [phone] Encounter Details Date Type Department Care Team (Late Contact Info) Description 02/06/2023 Orders Only [facility] [address] [place] [address] [phone] Stefanie Conteh ANP [address] [place] [address] [phone] Social History Tobacco Use Types Packs/Day Years Used Date Smoking Tobacco: Never Assessed Comments Unknown Sex and Gender Information Value Date Recorded Sex Assigned at Female 08/08/2022 10:14 AM EDT Legal Sex Female 10:14 AM EDT Gender Identity Female 08/08/2022 10:14 AM EDT Sexual Orientation Straight 08/08/2022 10 :14 AM EDT documented as of this encounter Plan of Treatment Upcoming Encounters Date Type Department Care Team (Late Contact Info) Description 12/13/2024 1:15 PM EST Office Visit [facility] [address] [place] [address] [phone] Cami Rosen MD [address] [place] [address] [phone] 02/17/2025 3:30 PM EDT Office Visit [facility] [address] [place] [phone] Stefanie Conteh ANP [address] [place] [address] [phone] documented as of this encounter Procedures Procedure Name Priority Date/Time Associated Diagnosis Comments HPV MRNA E6/E7 REFLEX TO HPV 16, 18/45 Routine 08/14/2023 1:06 PM EST PAP SMEAR Routine 08/14/2023 1:06 PM EST CBC WITH AUTO DIFFERENTIAL Routine 07/28/2023 9:16 PM EDT URINALYSIS WITH REFLEX MICROSCOPIC Routine 07/28/2023 9:16 PM EDT COMPREHENSIVE METABOLIC PANEL Routine 07/28/2023 9:16 PM EDT documented in this encounter Results * Pap Smear (08/14/2023 1:06 PM EST) 08/14/2023 1:06 PM EST 08/15/2023 8:20 AM EST [facility] - 08/22/2023 1:41 PM EST ----- ------- Name: Lisandra Haley ? Age/Sex: 53/F ? : 1970 Unit#: [id number] ?? Attend Dr: JOAQUIN CORNELIUS CNM ?Re08/14/23 ?Status: DEP REF ? Location: [facility] ? Disch: ? ----- ------- SPEC : [id number] ?RECD: 08/15/23 ? STATUS: ??SOUT ? REQ NUM: [id number] ? MONAE: 08/14/23 ? SUBM DR: JOAQUIN CORNELIUS CNM ? ENTERED: ??08/15/23 ?SP TYPE: Pap Smr ?OTHR : ? ORDERED: ??Pap Smear ? Interpretation ?? Satisfactory for evaluation. ?? No endocervical cells seen. ?? Negative for intraepithelial lesion or malignancy. ?HPV mRNA E6/E7: ?NOT DETECTED ? This assay detects E6/E7 viral messenger RNA (mRNA) from 14 high-risk HPV types (16, 18, ?? 31, 33, 35, 39, 45, 51, 52, 56, 58, 59, 66, 68) ?? HPV testing performed by [employer], [place], [place]. ??See reference laboratory ?? pion of the EMR for entire report. ?Clinical Information LMP: Unknown date Previous PAP test: Unknown date/findings ? Material Received ?? ThinPrep-Cervical ----- ------- Signed (signature on file) Angeles Washburn CT (ASCP) 08/22/23 1341 ? ----- ------- ? END OF REPORT ? us Joaquin Cornelius [facility] CYTOLOGY ORDERABLES F inal Result [facility] [address] [place] [address] [phone] * HPV mRNA E6/E7 w/Reflex to HPV Genotypes 16, 18/45 (08/14/2023 1:06 PM EST) HPV nRNA E6/E7 Not Detected Not Detected [facility] Comment:Methodology: Transcr iption-Mediated AmplificationThis assay detects E6/E7 viral messenger RNA (mRNA) from 14high-risk HPV types (16,18,31,33,35,39,45,51,52,56,58,59,66,68).Cervical sources are required for HPV testing.If a vaginal source from a patient who has had atotal hysterectomy with removal of cervix wassubmitted, please contact the testing laboratoryfor alternative testing options.For additional information, please refer [email or web address].[employer]/faq/EOU066g1(This link if provided for information/educational purposes only.)THIS TEST WAS PERFORMED AT:[email or web address] [place] [phone] TAPIA MD HPV mRNA E6/E7 [facility] HPV 16 [facility] HPV 18/45 RNA [facility] 08/14/2023 1:06 PM EST 08/15/2023 8:20 AM EST us Joaquin Cornelius [facility] CYTOLOGY ORDERABLES F inal Result [facility] [address] [place] [phone] * (ABNORMAL) Comprehensive Metabolic Panel (07/28/2023 9:16 PM EDT) Sodium 138 135 - 145 mmol/L [facility] Potassium 3.8 3.3 - 5.1 mmol/L [facility] Chloride 104 96 - 108 mmol/L [facility] Carbon Dioxide 24 22 - 29 mmol/L [facility] Anion Gap 14 12 - 20 [facility] Urea Nitrogen (BUN) 18(H) 9 - 16 mg/dL [facility] Creatinine, Serum 0.91 0.5 - 1.4 mg/dL [facility] Creatinine Clr Calc Pharmacy 65.5 [facility] Comment:Provided height and weight: 154.94 cm,71.668 kg.eGFR (calculated from the MDRD study equation) and eCrCl(calculated from the Cockcroft-Gault equation) are based ondifferent parameters and may not yield comparable results.If eCrCl result is absurd, please check patient'sheight/weight. Estimated Glomerular Filt Rate >60 [facility] Comment:NOTE: For -Am erican individuals, multiply the result by 1.210.Chronic Kidney Disease: Estimated GFR < 60 mL/min/1.79f9Bakbmz Kidney Disease: Estimated GFR < 15 mL/min/1.73m2 Glucose 103 60 - 115 mg/dL [facility] Calcium 10.1 8.4 - 10.2 mg/dL [facility] Bilirubin, Total 0.2 0.0 - 1.0 mg/dL [facility] Aspartate Amino Transferase 18 5 - 31 U/L [facility] Alanine Aminotransferase 23 0 - 31 U/L [facility] Total Protein 7.0 6.5 - 8.0 g/dL [facility] Albumin Level 4.1 3.5 - 5.0 g/dL [facility] Alkaline Phosphatase 45 39 - 117 U/L [facility] 07/28/2023 9:16 PM EDT 07/28/2023 9:19 PM EDT us [facility] External Provider LAB BLO OD ORDERABLES Final Result [facility] [address] [place] [address] [phone] * Urinalysis w/reflex microscopic (07/28/2023 9:16 PM EDT) Color Urine Yellow [facility] Appearance Urine Clear [facility] PH 6.0 5.0 - 9.0 [facility] Glucose Urine UA Negative Negative mg/dL [facility] Urine Blood Negative Negative [facility] Specific [place] - Urine 1.010 1.005 - 1.025 [facility] Urine Protein Negative Neg-Trace mg/dL [facility] Urine Ketones Negative Negative mg/dL [facility] Nitrite Urine Negative Negative [facility] Leukocyte Esterase Urine Negative Negative [facility] 07/28/2023 9:16 PM EDT 07/28/2023 9:19 PM EDT Narrative [facility] - 07/28/2023 9:25 PM EDT [id number], Clean Catch [facility] External Provider LAB URI NE ORDERABLES Final Result [facility] [address] [place] [phone] * (ABNORMAL) CBC auto differential (07/28/2023 9:16 PM EDT) White Blood Count 8.3 4.8 - 10.8 X10*3/uL [facility] Red Blood Count 4.63 4.20 - 5.50 X10*6/uL [facility] Hemoglobin 13.4 12.0 - 16.0 g/dl [facility] Hematocrit 40.7 37.0 - 47.0 % [facility] Mean Corpuscular Volume 87.9 80.0 - 98.0 fL [facility] Mean Corpuscular Hemoglobin 28.9 27.0 - 33.0 pg [facility] Mean Corpuscular HGB Conc 32.9 31.0 - 35.0 g/dl [facility] Red Cell Distribution Width 13.8 11.0 - 16.0 % [facility] Platelet Count 384 160 - 400 X10*3/uL [facility] Mean Platelet Volume 9.9 9.4 - 12.3 fL [facility] Neutrophils Percent Auto 66.3 45 - 73 % [facility] Imm Gran Pct Auto 0.5(H) 0.0 - 0.4 % [facility] Lymphocytes Percent Auto 24.5 20 - 40 % [facility] Monocytes Percent Auto 6.4 2 - 11 % [facility] Eosinophils Percent Auto 1.7 0 - 4 % [facility] Basophils Percent Auto 0.6 0 - 2 % [facility] NRBC Pct Auto 0.0 0.0 - 0.2 /100WBC [facility] Neutrophils Absolute Auto 5.5 2.0 - 8.3 x10*3/uL [facility] Imm Gran Abs Auto 0.04(H) 0.00 - 0.03 X10*3/uL [facility] Lymphocytes Absolute Auto 2.0 1.2 - 4.9 X10*3/uL [facility] Monocytes Absolute Auto 0.5 0.1 - 1.2 X10*3/uL [facility] Eosinophils Absolute Auto 0.1 0.0 - 0.4 X10*3/uL [facility] Basophils Absolute Auto 0.1 0.0 - 0.2 X10*3/uL [facility] NRBC Abs Auto 0.000 0.0 - 0.012 X10*3/uL [facility] 07/28/2023 9:16 PM EDT 07/28/2023 9:19 PM EDT [facility] External Provider LAB BLO OD ORDERABLES Final Result Performing Organization Address City/State/[facility] Co de Phone Number [facility] [address] [place] [address] [phone] documented in this encounter Visit Diagnoses Not on filedocumented in this encounter Care Teams Family Service Center Director Relationship Specialty Start Date End Date Stefanie Conteh ANP [address] [place] [phone] PCP - General Family Medicine 09/09/20 [facility] ManagerParalegal Legal Secretary 05/16/24 documented as of this encounter
--- OUTSIDE RECORDS SUMMARY | 2024-12-06 15:06 | XMS_ITS | Clinical Summary ---
Demographics Address [address] [place] [address] Home Phone Mobile Phone Email Address Preferred Language en Marital Status Single Christian Affiliation Unknown Race Other Race Ethnic Group Unknown Author Organization [employer] Address [address] [place] [address] Care Team Providers Care Air Conditioning Supervisor Name Role Phone Jose G Castillo Primary Care Provider [phone] Allergies No known active allergies Medications * This document contains information received from the source organization and may not represent a complete record from that organization. albuterol 108 (90 Base) MCG/ACT inhalerIndications: Moderate persistent asthma without complication Inhale 2 puffs every 6 (six) hours if needed for wheezing. 18 g 11 3 Active Blood Pressure kitIndications:Esse ntial hypertension 1 kit in the morning. 1 kit 4 Active lisinopril 20 MG tabletIndications:E ssential hypertension TAKE 1 TABLET BY MOUTH EVERY DAY IN THE MORNING 90 tablet 3 4 Active budesonide-formoter ol (Symbicort) 160-4.5 MCG/ACT inhalerIndications: Moderate persistent asthma without complication Inhale 2 puffs every 12 (twelve) hours. Rinse mouth with water after using. 1 each 11 4 Active divalproex (Depakote ER) 500 MG 24 hr tabletIndications:M ood disorder (CMS/HCC) TAKE 1 TABLET BY MOUTH EVERYDAY AT BEDTIME 90 tablet 1 4 Active risperiDONE (RisperDAL) 1 MG tabletIndications:M ajor Depressive Disorder TAKE 1/2 TABLET BY MOUTH IN MORNING AND 1&1/2 TABLETS BY MOUTH AT BEDTIME 180 tablet 1 4 Active atorvastatin (Lipitor) 40 MG tabletIndications:H yperlipidemia, unspecified hyperlipidemia type Take 1 tablet (40 mg) by mouth at bedtime. 90 tablet 3 5 Active Active Problems Problem Noted Date Diagnosed Date Lower abdominal pain 10/03/2023 10/03/2023 Moderate episode of recurrent major depressive d isorder 07/05/2023 Assessment & Plan (10/07/2024 10:27 AM EST): During IBH Consult Lisandra presenting with depressed mood, Tearful, crying spells , hopelessness, irritable mood, loss of interests/pleasure , sense of isolation/loneliness , isolating, change in appetite or weight reduce appetite, changes in sleep difficulty falling asleep and difficulty staying asleep , psychomotor retardation, fatigue/loss of energy, worthlessness, inappropriate/excessive guilt , difficulty concentrating; for a period of 6-12 mo, for most or all symptoms in the context of illness or family illness. Lisandra reported hx of mental health disorder that includes depression and hallucinations. She was released from being incarcerated one year ago. She is currently receiving OP therapy services- agency unknown- biweekly session, but has been waiting for a psychiatry for about a year now. Her medical condition worsening has been impacting her mental health in significant ways. Not being able to perform ADL's and depending on others is difficult to accept for the pt. Lisandra likes to listen to music, watching TV and has the support of her adult son. Her grandchildren are identified as strength and protective factors. clinician engaged patient with active/reflective listening. Emotions and concerns were normalized and validated. Reviewed and assessed for risk, current stressors and protective factors using open-ended questions. Pt will be refer for psychiatry services with [facility], Tylor Martínez and will continue with her current therapy sessions. clinician will be available to provide additional support as needed and requested. Assessment & Plan (07/06/2023 8:21 AM EDT): Assessment: Patient with anhedonia, depressed mood, sleep disturbance, poor appetite, guilt, stress, anxiousness, difficulties concentrating and auditory hallucinations in the context of physical health concerns and adjusting back into the community. Patient is requesting to be connected to therapy and psychiatry. PCP will bridge medication. At this time Lisandra Haley meets criteria for Visit Diagnoses: Problem List Items Addressed This Visit Other Moderate episode of recurrent major depressive disorder (CMS/HCC) Auditory hallucination Patient ready to address current needs Yes Strengths include motivation to improve mental health PLAN: 1. Follow up with [facility]: Not recommended for follow-up 2. Patient goal is to be connected to services 3. Behavioral Recommendations a. Will comply with medication b. Will engaged in therapy and psychiatry when established c. 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 Date Type Department Care Team Description 11/20/2024 3:45 PM EST Office Visit [facility] [address] [place] [phone] Jose G Castillo ANP Essential hypertension (Primary Dx); Congenital cystic kidney disease; Chronic kidney disease due to hypertension; Moderate episode of recurrent major depressive disorder (CMS/HCC) 11/20/2024 Travel 11/20/2024 Telephone [facility] [address] [place] [address] Mana Ferrell MA chart prep 10/23/2024 Telephone [facility] [address] [place] [address] Jose G Castillo ANP Prior Authorization (Atorvastatin 40mg tab) 10/21/2024 Patient Outreach [facility] [address] [place] [address] Jose G Castillo ANP Care Coordination (CHW outreach for SDOH PT-1 and food needs-referral completed /) 10/21/2024 Telephone [facility] [address] [place] [phone] Jose G Castillo ANP PT-1 10/16/2024 Orders Only [facility] [address] [place] [phone] Jose G Castillo ANP Hyperlipidemia, unspecified hyperlipidemia type 10/16/2024 Refill [facility] [address] [place] [phone] Jose G Castillo ANP Hyperlipidemia, unspecified hyperlipidemia type 10/04/2024 1:30 PM EST Office Visit [facility] [address] [place] [phone] Jose G Castillo ANP Hyperlipidemia, unspecified hyperlipidemia type (Primary Dx); Essential hypertension; Moderate episode of recurrent major depressive disorder ([facility]) 10/04/2024 Travel 09/29/2024 Refill [facility] [address] [place] [phone] Jose G Castillo ANP Mood disorder ([facility]/HCC) 09/07/2024 Orders Only GENERIC EXTERNAL DATA DEPARTMENT Provider, Generic External Data from Last 3 Months Immunizations Name Administration Dates Next Due Hep A, Adult 12/30/2015,10/28/2009,11/20/2008 Hep B, adult 12/30/2015, 0,12/18/2008,11/20 Influenza injectable quadriv alent IIV4 with preservative 07/09/2015 Influenza injectable quadriv alent preservative free 11/09/2023,06/08/2018,07/12/2017,07/06,07/04/2016 Pneumococcal Polysaccharide PPSV23 11/30/2000 TD (adult), 2 Lf tetanus tox oid, preservative free, adsorbed 11/09/2023,11/30/2000 Td (adult), 5 Lf tetanus tox oid, preservative free, adsorbed 10/13/2012 Tdap 12/08/2010 Social History Tobacco Use Types Packs/Day Years [...] Orientation Straight 08/08/2022 10 :14 AM EDT Last Filed Vital Signs Vital Sign Reading [...] oz) 11/20/2024 4:20 P M EST Height 148.3 cm (4' 10.37 ) 08/15/2024 1:[address] Body Mass Index 32.86 08/15/2024 1:06 PM EST Plan of Treatment Upcoming Encounters Date Type Department Care Team (Late st Contact Info) Description 12/13/2024 1:15 PM EST Office Visit [facility] [address] [place] [phone] Cami Rosen MD [address] [place], [place] [phone] 02/17/2025 3:30 PM EDT Office Visit [facility] [address] [place], [place] [phone] Jose G Castillo ANP [address] [place], [place] [phone] Health Maintenance Due Date Last Done Comments CT Colonography 1971 Colonoscopy 1971 Colorectal Cancer Screening 1970 FIT DNA/Cologuard 1971 FIT 1971 FOBT 1971 Sigmoidoscopy 1970 Pneumococcal Vaccine: 50+ Years (2 of 2 - PCV) 11/30/2001 11/30/2000 Zoster Vaccines (1 of 2) 2021 COVID-19 Vaccine (2 - season) 2024 06/25/2021 Influenza Vaccine (#1) 2024 , 06/08/2018, 07/12/2017, Additional history exists Depression Monitoring (PHQ-9) 04/04/2025 10/04/2024, 10/04/2024 Diabetes: Hemoglobin A1C 07/05/2025 07/05/2024 Depression Screening 10/04/2025 10/04/2024, 10/04/20 24 Alcohol/Substance Use Screening 11/20/2025 11/20/2024 SDOH Screening 11/20/2025 11/20/2024 Tobacco Screening 11/20/2025 11/20/2024 Mammogram 07/30/2026 07/30/2024, 07/10, 12/05/2018, Additional history exists Cervical Cancer Screening 08/14/2028 HPV/Cotest 08/14/2028 08/14/2023 Pap Smear 08/14/2028 08/14/2023 Lipid Panel 07/05/2029 07/05/2024, 07/20/2023 DTaP/Tdap/Td Vaccines (4 - Td or Tdap) 11/09/2033 11/09/2023, 10/13/2012, 12/08/2010, Additional history exists RSV Patients and Patients Aged 60 years or older (1 - 1-dose 75+ series) 2046 Hepatitis A Vaccines Aged Out 12/30/2015, 10/28/2009, 11/20/2008 No longer eligible based on patient's age to complete this topic Hepatitis B Vaccines Completed 12/30/2015, 10/28/2009, 12/18/2008, Additional history exists HIV Screening Completed 07/05/2024, 12/08, 12/28/2020 Hepatitis C Screening Completed 07/05/2024 HIB Vaccines Aged Out No longer eligi ble based on patient's age to complete this topic HPV Vaccines Aged Out No longer eligi ble based on patient's age to complete this topic IPV Vaccines Aged Out No longer eligi ble based on patient's age to complete this topic Meningococcal Vaccine Aged Out No dirk yang eligible based on patient's age to complete this topic RSV under 20 months Aged Out No longe r eligible based on patient's age to complete this topic Rotavirus Vaccines Aged Out No longer eligible based on patient's age to complete this topic Procedures Procedure Name Priority Date/Time Associated Diagnosis Comments US PELVIS TRANSVAGINAL Urgent 12/06/2024 1:21 PM EST Checking of intrauterine device Fibroids SARS COV2/INFLUENZA A/B AND RSV RNA QL NAAT Routine 09/07/2024 8:03 AM EST STREP A NUCLEIC ACID Routine 09/07/2024 8:03 AM EST BI MAMMOGRAM SCREEN W ROGER W IMPLANTS LEVI Routine 07/30/2024 10:30 AM EDT HEPATITIS C AB W/REFL TO HCV RNA, QN, PCR Routine 07/05/2024 11:45 AM EDT Routine screening for STI (sexually transmitted infection) HIV 1/2 ANTIGEN/ANTIBODY, FOURTH GENERATION W/RFL Routine 07/05/2024 11:45 AM EDT Routine screening for STI (sexually transmitted infection) HEMOGLOBIN A1C Routine 07/05/2024 11:45 AM EDT Hyperlipidemia, unspecified hyperlipidemia type LIPID PANEL, STANDARD Routine 07/05/2024 11:45 AM EDT Hyperlipidemia, unspecified hyperlipidemia type HPV MRNA E6/E7 REFLEX TO HPV 16, 18/45 Routine 08/14/2023 1:06 PM EST PAP SMEAR Routine 08/14/2023 1:06 PM EST from Last 3 Months or Most Recently Relevant to Health Maintenance Results * US Pelvis Transvaginal (12/06/2024 1:21 PM EST) Anatomical Region Laterality Modality Pelvis Ultrasound 12/06/2024 1:21 PM EST Narrative 12/06/2024 2:20 PM EST ? [facility] ?[address] ?[place] [address] ? Ultrasound Report ? Signed ? Patient: Almodoval,Lisandra ?MR#: [id number] ?? [id number] ? : 1970 ?Acct:[id number] ? Age/Sex: 54 / F ?ADM Date: 12/06/24 ? Loc: HO.US ? Attending Dr: Joaquin Cornelius CNM ? Ordering Physician: JOAQUIN CORNELIUS CNChuyita ?? Date of Service: 12/06/24 ?? Procedure(s): US pelvic and transvaginal ?? Accession Number(s): [id number] ? cc: JOAQUIN CORNELIUS; JOSE G CASTILLO NP ? EXAMINATION: ? US PELVIS ? CLINICAL INFORMATION: ? Right lower quadrant pain. ? COMPARISON: ?? No priors. ? TECHNIQUE: ?? Ultrasound of the pelvis is performed using both transabdominal and ?? transvaginal transducers along with Doppler. Transvaginal imaging is ?? performed due to inadequate visualization transabdominally. ? FINDINGS: ?? Uterus: ?? The uterus is anteverted and measures 8 x 4 x 5 cm. ??There is an ?? intrauterine contraceptive device in place. The endocervical canal and ?? cervix appeared normal with the small nabothian cysts. ? The double wall endometrial thickness is 5 mm. ? Heterogeneous nodular myometrium. ??There are 3 heterogeneous mixed ?? echotexture nodular lesions within the myometrium of the fundus and ?? body of the uterus, the largest measures 2.4 cm. ? Adnexa: ?? Both ovaries are visualized. There is normal color flow to the adnexa. ?? There is no ovarian torsion. ??There is no pelvic ascites or fluid ?? collection. ? Right ovary measures 2 x 1 x 2 cm. Volume: 2 cc. ? Left ovary measures 2 x 2 x 1 cm. Volume: 3 cc. ? US/US pelvic and transvaginal ?? IMPRESSION: ?? Multiple uterine fibroids, largest 2.4 cm. ?? No ovarian torsion. ?? Intrauterine contraceptive device in place. ? Electronically signed by: ??Darryl Srivastava MD ??12/06/2024 02:17 PM ?? EST ? Dictated By: ?Darryl Dhillon MD ? Signed By: ?<Electronically signed by Darryl Oliva MD in OV> ? 12/06/24 1417 ? DD/ 1321 ? TD/TT: 12/06/24 1340 ? Roller Picker: ? Procedure Note Jaime, Image - 12/06/[address] [address] Ultrasound Report Signed Patient: Sabina Haley#: [id number] : 1970Acct:[id number] Age/Sex: 54 / FADM Date: 12/06/24 Loc: HO.US Attending Dr: Joaquin Cornelius CNM Ordering Physician: JOAQUIN CORNELIUS CNM Date of Service: 12/06/24 Procedure(s): US pelvic and transvaginal Accession Number(s): [id number] cc: JOAQUIN CORNELIUS CNM; JOSE G CASTILLO NP EXAMINATION: US PELVIS CLINICAL INFORMATION: Right lower quadrant pain. COMPARISON: No priors. TECHNIQUE: Ultrasound of the pelvis is performed using both transabdominal and transvaginal transducers along with Doppler. Transvaginal imaging is performed due to inadequate visualization transabdominally. FINDINGS: Uterus: The uterus is anteverted and measures 8 x 4 x 5 cm. There is an intrauterine contraceptive device in place. The endocervical canal and cervix appeared normal with the small nabothian cysts. The double wall endometrial thickness is 5 mm. Heterogeneous nodular myometrium. There are 3 heterogeneous mixed echotexture nodular lesions within the myometrium of the fundus and body of the uterus, the largest measures 2.4 cm. Adnexa: Both ovaries are visualized. There is normal color flow to the adnexa. There is no ovarian torsion. There is no pelvic ascites or fluid collection. Right ovary measures 2 x 1 x 2 cm. Volume: 2 cc. Left ovary measures 2 x 2 x 1 cm. Volume: 3 cc. US/US pelvic and transvaginal IMPRESSION: Multiple uterine fibroids, largest 2.4 cm. No ovarian torsion. Intrauterine contraceptive device in place. Electronically signed by: Darryl Srivastava MD 12/06/2024 02:17 PM EST Dictated By: Darryl Dhillon MD Signed By: <Electronically signed by Darryl Oliva MDin OV> 12/06/24 1417 DD/ 1321 TD/TT: 12/06/24 1340 Roller Picker: us Joaquin Cornelius CNM IMG US PROCEDURES Final R esult * Strep A Nucleic Acid (09/07/2024 8:03 AM EST) IDNOW SERIAL# [id number] [facility] Strep A Nucleic Acid Negative Negative [facility] Comment:All test results mus t be correlated with clinical findings.This test has not been evaluated for monitoring treatment ofinfection.Additional follow-up testing using the culture method isrequired if the result is negative and clinical symptomspersist, or in the event of an acute rheumatic feveroutbreak. 09/07/2024 8:03 AM EST 09/07/2024 8:06 AM EST Generic External Data Provider LAB MICROBIOLOGY - GENERAL ORDERABLES Final Result Performing Organization Address [facility] Co de Phone Number [facility] [address] [place] [phone] * SARS-CoV-2 RNA, Influenza A/B, and RSV RNA, Ql NAAT (09/07/2024 8:03 AM EST) Influenza A PCR NEGATIVE Negative [facility] Influenza B PCR NEGATIVE Negative [facility] Resp Syncy Virus RNA Qual PCR NEGATIVE Negative [facility] SARS COV2 PCR NEGATIVE Negative [facility] Comment:All test results mus t be correlated with clinical findings.Negative results do not preclude SARS-CoV2, influenza Avirus, influenza B virus and/or RSV infectionand should not be used as the sole basis for treatment orother patient management decisions. Negative results must becombined with clinical observations, patient history, andepidemiological information.This test has not been evaluated for monitoring treatment ofinfection.This test has been authorized by the FDA under an EmergencyUse Authorization (EUA) for use by authorized laboratories.Testing performed on the [employer] GeneXpert utilizingreal-time RT-PCR.All SARS CoV2 and positive influenza A/B results arereported to [facility]. 09/07/2024 8:03 AM EST 09/07/2024 8:06 AM EST us Generic External Data Provider LAB MICROBIOLOGY - GENERAL ORDERABLES Final Result Performing Organization Address [facility] Co de Phone Number [facility] [address] [place] [phone] * BI Mammogram Screen w/ Roger w/ Implants Levi (07/30/2024 10:30 AM EDT) Anatomical Region Laterality Modality Mammography 07/30/2024 10:3 0 AM EDT Narrative 08/09/2024 10:50 AM EDT ? [facility] ? [address] ?[place] [address] ? Mammography Report ? Signed ? Patient: Almodoval,Lisandra ?MR#: [id number] ?? [id number] ? : 1970 ?Acct:[id number] ? Age/Sex: 54 / F ?ADM Date: 07/30/24 ? Loc: HO.MAMMO ? Attending Dr: Jose G Castillo BODY MASKER ? Ordering Physician: JOSE G CASTILLO NP ?Results: 2Benign Fin ?? dings ? Date of Service: 07/30/24 ?Follow Up: 1 Year From Orig ?? inal Mammogram ? Procedure(s): MM tomosynthesis screen imp BI ?? Accession Number(s): [id number] ? cc: JOSE G CASTILLO NP ? EXAMINATION: ?? MM SCREENING DIGITAL BREAST TOMOSYNTHESIS, BILATERAL ? CLINICAL INFORMATION: ? Screening. Asymptomatic. ? COMPARISON: ?? Mammography: Comparison is made with relevant avialable priors. ? TECHNIQUE: ?? Digital mammography is performed in craniocaudal and mediolateral ?? oblique views along with computer-aided detection (CAD). Digital breast ?? tomosynthesis is performed in implant-displaced craniocaudal and ?? implant-displaced mediolateral oblique views along with computer-aided ?? detection (CAD). ? FINDINGS: ?? The breasts are heterogeneously dense, which may obscure small masses ?? (ACR BI-RADS breast composition Category c). ?? Bilateral implants which decreases the sensitivity of mammography ?? mammography. ?? Marker clip in the lower inner left breast. ?? Bilateral circumscribed oval masses which wax and wane consistent with ?? benign fibrocystic changes. ?? There are no significant masses, abnormal calcifications, or other ?? abnormalities. ? MM/MM tomosynthesis screen imp BI ?? IMPRESSION: ?? There are no significant changes from prior study. ? ASSESSMENT: ? BI-RADS BI-RADS 2 - Benign Findings ? RECOMMENDATION: ?? Routine annual mammography screening. ? 1 year F/U ? This patient's information was entered into a reminder system with a ?? target due date for their next mammogram. ? Electronically signed by: ??Gladys Myers DO ??08/09/2024 10:47 AM EDT ? Dictated By: ?Gladys Myers DO ? Signed By: ?<Electronically signed by Gladys Myers, DO in OV> ? 08/09/24 1047 ? DD/ 1030 ? TD/TT: 07/30/24 1057 ? Roller Picker: ? Procedure Note Jaime, Image - 08/09/2024 [place] [facility] [address] [place] [address] Mammography Report Signed Patient: Sabina Haley#: [id number] : 1970Acct:[id number] Age/Sex: 54 / FADM Date: 07/30/24 Loc: HO.HERNANO Attending Dr: Jose G Castillo BODY MASKER Ordering Physician: JOSE G CASTILLOults: 2Benijuana meier Date of Service: 07/30/24Follow Up: 1 Year From Orig inal Mammogram Procedure(s): MM tomosynthesis screen imp BI Accession Number(s): [id number] cc: JOSE G CASTILLO BODY MASKER EXAMINATION: MM SCREENING DIGITAL BREAST TOMOSYNTHESIS, BILATERAL CLINICAL INFORMATION: Screening. Asymptomatic. COMPARISON: Mammography: Comparison is made with relevant avialable priors. TECHNIQUE: Digital mammography is performed in craniocaudal and mediolateral oblique views along with computer-aided detection (CAD). Digital breast tomosynthesis is performed in implant-displaced craniocaudal and implant-displaced mediolateral oblique views along with computer-aided detection (CAD). FINDINGS: The breasts are heterogeneously dense, which may obscure small masses (ACR BI-RADS breast composition Category c). Bilateral implants which decreases the sensitivity of mammography mammography. Marker clip in the lower inner left breast. Bilateral circumscribed oval masses which wax and wane consistent with benign fibrocystic changes. There are no significant masses, abnormal calcifications, or other abnormalities. MM/MM tomosynthesis screen imp BI IMPRESSION: There are no significant changes from prior study. ASSESSMENT: BI-RADS BI-RADS 2 - Benign Findings RECOMMENDATION: Routine annual mammography screening. 1 year F/U This patient's information was entered into a reminder system with a target due date for their next mammogram. Electronically signed by: Gladys Myers DO 08/09/2024 10:47 AM EDT Dictated By: Gladys Myers DO Signed By: <Electronically signed by Gladys Myers DO in OV> 08/09/24 1047 DD/ 1030 TD/TT: 07/30/24 1057 Roller Picker: us Jose G ASH IMG BI PROCEDURES Edited Result - Final * Hepatitis C Antibody with Reflex to HCV, RNA, Quantitative, Real-Time PCR (07/05/2024 11:45 AM EDT) Hepatitis C Antibody Nonreactive Nonreactive [facility] Comment:Antibodies to HCV no t detected; does not exclude early acuteHCV infection. Blood Venous blood specimen / Unknown 07/05/2024 11:45 AM EDT 07/05/2024 1:19 PM EDT us Jose G ASH LAB BLOOD ORDERABLES Final Resul t [facility] [address] [place] [address] [place] [phone] * HIV-1/2 Antigen and Antibodies, Fourth Generation, with Reflexes (07/05/2024 11:45 AM EDT) HIV AB/AG Nonreactive Nonreactive [facility] Comment:HIV-1 p24 Ag and/or HIV-1/HIV-2 Ab not detected.A test result that is nonreactive does not exclude thepossibility of exposure to or infection with HIV-1 and/orHIV-2. Nonreactive results in this assay for individualswith prior exposure to HIV-1 and/or HIV-2 may be due toantigen and antibody levels that are below the limit ofdetection of this assay.The [employer] HIV Ag/Ab Combo assay result andsupplemental assay results should be interpreted inconjunction with the patient's clinical presentation,history and other laboratory results. If the results areinconsistent with clinical evidence, additional testing issuggested to confirm the result. Blood Venous blood specimen / Unknown 07/05/2024 11:45 AM EDT 07/05/2024 1:19 PM EDT [facility] LAB BLOOD ORDERABLES Final Resul t [facility] [address] [place] [phone] * Hemoglobin A1c (07/05/2024 11:45 AM EDT) Hemoglobin A1c 5.7 <6.0 % [facility] Comment:Hemoglobin A1C Refer ence Range Adults: 4.8 - 6.0 % Non diabetic: < 6.0 % Goal: < 7.0 %Additional Action Suggested: > 8.0 %Note: Hemoglobin A1c results are invalid for patients with abnormal amounts of HbF. Blood transfusions may impact the HbA1c concentration in the patient sample. Estimated Average Glucose 117 mg/dL [facility] Comment:eAG = Estimated ave rage glucose which is %A1C expressed asaverage glucose, using the formula of the B4I-[id number] Glucose study (ADAG), Diabetes Care, Vol.31,#8,2007 Blood Venous blood specimen / Unknown 07/05/2024 11:45 AM EDT 07/05/2024 1:19 PM EDT Jose G Castillo ANP LAB BLOOD ORDERABLES Final Resul t Performing Organization Address [facility] de Phone Number [facility] [address] [place] [phone] * (ABNORMAL) Lipid Panel, Standard (07/05/2024 11:45 AM EDT) Triglycerides 138 <150 mg/dL [facility] Comment:Desirable Triglyceri de: less than 150 mg/dLBorderline High Triglyceride 150-199 mg/dLHigh Triglyceride: 200-499 mg/dLVery High Triglyceride: greater than or equal to 5OO mg/dL Cholesterol 255(H) <200 mg/dL [facility] Comment:Desirable Cholestero l: less than 200 mg/dLBorderline High Cholesterol: 200-239 mg/dLHigh Cholesterol: greater than 239 mg/dL LDL Cholesterol Calculated 182(H) <100 mg/dL [facility] Comment:Desirable LDL: less than 100 mg/dLNear Optimal/Above Optimal LDL: 110- 129 mg/dLBorderline High LDL: 130-159 mg/dLHigh LDL: 160-189 mg/dLVery High LDL: greater than or equal to 190 mg/dL HDL Cholesterol 46 >40 mg/dL [facility] Comment:Desirable HDL: great er than 40 mg/dL Note: This HDL assay may give artificially low results in patients with liver disease. Blood Venous blood specimen / Unknown 07/05/2024 11:45 AM EDT 07/05/2024 1:19 PM EDT us Jose G Castillo ANP LAB BLOOD ORDERABLES Final Resul t Performing Organization Address [facility] Co de Phone Number [facility] [address] [place] [phone] * HPV mRNA E6/E7 w/Reflex to HPV Genotypes 16, 18/45 (08/14/2023 1:06 PM EST) HPV nRNA E6/E7 Not Detected Not Detected [facility] Comment:Methodology: Transcr iption-Mediated AmplificationThis assay detects E6/E7 viral messenger RNA (mRNA) from 14high-risk HPV types (16,18,31,33,35,39,45,51,52,56,58,59,66,68).Cervical sources are required for HPV testing.If a vaginal source from a patient who has had atotal hysterectomy with removal of cervix wassubmitted, please contact the testing laboratoryfor alternative testing options.For additional information, please refer tohttp://education.Moat/faq/FJK875x1(This link if provided for information/educational purposes only.)THIS TEST WAS PERFORMED AT:[facility] [place] [id number] TAPIA MD HPV mRNA E6/E7 [facility] HPV 16 RNA [facility] HPV 18/45 RNA [facility] 08/14/2023 1:06 PM EST 08/15/2023 8:20 AM EST Joaquin Cornelius [facility] CYTOLOGY ORDERABLES F inal Result [facility] [address] [place] [address] [phone] * Pap Smear (08/14/2023 1:06 PM EST) 08/14/2023 1:06 PM EST 08/15/2023 8:20 AM EST Narrative [facility] - 08/22/2023 1:41 PM EST ----- ------- Name: Lisandra Haley ? Age/Sex: 53/F ? : 1970 Unit#: [id number] ?? Attend Dr: JOAQUIN CORNELIUS CNM ?Re08/14/23 ?Status: DEP REF ? Location: HO.HHCLNP ? Disch: ? ----- ------- SPEC : [id number] ?RECD: 08/15/23 ? STATUS: ??SOUT ? REQ NUM: [id number] ? MONAE: 08/14/23-6009 ? SUBM DR: JOAQUIN CORNELIUS CNM ? ENTERED: ??08/15/23 ?SP TYPE: Pap Smr ?OTHR DR: ? ORDERED: ??Pap Smear ? Interpretation ?? Satisfactory for evaluation. ?? No endocervical cells seen. ?? Negative for intraepithelial lesion or malignancy. ?HPV mRNA E6/E7: ?NOT DETECTED ? This assay detects E6/E7 viral messenger RNA (mRNA) from 14 high-risk HPV types (16, 18, ?? 31, 33, 35, 39, 45, 51, 52, 56, 58, 59, 66, 68) ?? HPV testing performed by [employer] [place], [place]. ??See reference laboratory ?? pion of the EMR for entire report. ?Clinical Information LMP: Unknown date Previous PAP test: Unknown date/findings ? Material Received ?? ThinPrep-Cervical ----- ------- Signed (signature on file) MARY Aviles (ASCP) 08/22/23 1341 ? ----- ------- ? END OF REPORT ? us Joaquin Cornelius [facility] CYTOLOGY ORDERABLES F inal Result [facility] [address] [place] [phone] from Last 3 Months or Most Recently Relevant to Health Maintenance Insurance [facility] Care Teams Air Conditioning Supervisor Relationship Specialty Start Date End Date Jose G Castillo ANP [address] [place] [phone] PCP - General Family Medicine 09/09/20 Lizbeth Alexander Risk Consulting Treasury DirectorChildren'S Zoo Caretaker 05/16/24
--- OUTSIDE RECORDS SUMMARY | 2024-12-06 15:06 | XMS_ITS | Encounter Summary ---
Demographics Address [address] [place] [address] Home Phone Mobile Phone Email Address Preferred Language en Marital Status Single Roman Catholic Affiliation Unknown Race Other Race Ethnic Group Unknown Author Organization [employer] Address [address] [facility] [address] 7t [place] [address] Care Team Providers Care Electric Motor Repairer Name Role Phone Stefanie Conteh Primary Care Provider [phone] Reason for Visit * Reason Onset Date Comments PT-1 10/21/2024 Encounter Details Date Type Department Care Team ([facility] Contact Info) Description 10/21/2024 Telephone [facility] MEDICINE [address] [place], [place] [phone] Stefanie Conteh ANP [address] [place] [address] PT-1 Social History Tobacco Use Types Packs/Day Years [...] housing situation today? I have naila pearl 07/28/[address] you li ve. Do you have problems with any of the following? None of the above 07/28/2023 Food Insecurity Answer Date Recorded Within the past 12 months, y ou worried that your food would run out before you got money to buy more: Never True 07/28/2023 Within the past 12 months,th e food you bought just didn't last and you didn't have enough money to get more: Never True Transportation Answer Date Recorded In the past 12 months, has l ack of transportation kept you from medical appts, meetings, work or from getting things needed for daily living? No 07/28/2023 Utilities Answer Date Recorded In the past 12 months, has t he electric, gas, oil or water company threatened to shut off services in your home? No 07/28/2023 Depression Answer Date Recorded Patient Health Questionnaire-2 [...] encounter Miscellaneous Notes * Telephone Encounter - Zac Nye - 10/21/2024 3:56 PM EST Patient calling requesting PT1 Home Address verified: Y/N: Yes Provider name or facility name: [facility] [address], [place] [address] [facility] Escort needed: Y/N: No Do you have a wheelchair: Y/N: No If yes- Manual or electric: Visits: (3 x Month) documented in this encounter Plan of Treatment Upcoming Encounters Date Type Department Care Team (Late st Contact Info) Description 12/13/2024 1:15 PM EST Office Visit [facility] MEDICINE [address] [place] [phone] Cami Rosen MD [address] [place] [phone] 02/17/2025 3:30 PM EDT Office Visit [facility] MEDICINE [address] [place] [address] [phone] Stefanie Conteh ANP [address] [place] [address] documented as of this encounter Visit Diagnoses Not on filedocumented in this encounter Additional Health Concerns Assessment Noted Time PHQ-9 Depression Total Score: 17 024 3:14 PM EST documented as of this encounter Care Teams Electric Motor Repairer Relationship Specialty Start Date End Date Stefanie Conteh ANP [address] [place] [address] PCP - General Family Medicine 09/09/20 Lizbeth Alexander Compactor DriverSafety Counselor 05/16/24 documented as of this encounter
--- OUTSIDE RECORDS SUMMARY | 2024-12-06 15:06 | XMS_ITS | Encounter Summary ---
Demographics Address [address] [place] [address] Home Phone Preferred Language es Marital Status Single Orthodoxy Affiliation Unknown Race Unknown Ethnic Group Unknown Author Organization [facility] Address [address] [place] [address] Phone Care Team Providers Care Process Automation Engineer Name Role Phone Stefanie Conteh NP Primary Care Provider Roby e Encounter Details Date Type Department Care Team (Late st Contact Info) Description 01/04/2022 Documentation Only [facility] [address] [place] [address] Antwan Harper MD [address] [place] [address] [place] [address] Social History Tobacco Use Types [...] Visit [facility] [address] [place] [address] Kenny Teran MD [address] [place] [address] [place] [address] documented as of this encounter Visit Diagnoses Not on filedocumented in this encounter Care Teams Process Automation Engineer Relationship Specialty Start Date End Date Stefanie Conteh NP PCP - General Nurse Practitioner 01/03/22 documented as of this encounter
--- OUTSIDE RECORDS SUMMARY | 2024-12-06 15:06 | XMS_ITS | Encounter Summary ---
Demographics Address [address] [place] [address] Home Phone Mobile Phone Email Address Preferred Language en Marital Status Single Presybeterian Affiliation Unknown Race Other Race Ethnic Group Unknown Author Organization [employer] Address [address] [facility] 7[address] [place] [address] Care Team Providers Care Document Control Assistant Name Role Phone Stefanie Conteh Primary Care Provider [phone] Reason for Visit * Reason Onset Date Comments PT1 05/20/2024 Encounter Details Date Type Department Care Team ([facility] Contact Info) Description 05/20/2024 Telephone [facility] MEDICINE [address] [place], [place] [phone] Stefanie Conteh ANP [address] [place] [address] PT1 Social History Tobacco Use Types Packs/Day Years Used Date Smoking Tobacco: Former Cigarettes Smokeless Tobacco: Never Alcohol Use Standard Drinks/Week Comments Not Currently 0 (1 standard drink = 0.6 oz pur e alcohol) Depression Answer Date Recorded Patient Health Questionnaire-9 Score 6 02/19/2024 Patient Health Questionnaire-9 Score 6 02/19/2024 Last PHQ-9: Questionnaire Data Not on file 0 02/19/2024 Housing Stability Answer Date Recorded What is your housing situation today? I have naila peral 07/28/[address] you li [...] Answer Date Recorded Patient Health Questionnaire-2 Score 2 02/19/2024 Comments No Sex and Gender Information Value Date Recorded Sex Assigned at Female 08/08/2022 10:14 AM EDT Legal Sex Female 10:14 AM EDT Gender Identity Female 08/08/2022 10:14 AM EDT Sexual Orientation Straight 08/08/2022 10 :14 AM EDT documented as of this encounter Miscellaneous Notes * Telephone Encounter - Liyah Santana - 05/20/2024 12:09 PM EDT Patient calling requesting PT1 Home Address verified: Yes Provider name or facility name: [facility] Facility Address: [address] [place] [address] Escort needed: No Do you have a wheelchair: No If yes- Manual or electric: n/a Visits: all future visits documented in this encounter Plan of Treatment Upcoming Encounters Date Type Department Care Team (Late st Contact Info) Description 12/13/2024 1:15 PM EST Office Visit [facility] MEDICINE [address] [place] [phone] Cami Rosen MD [address] [place] [phone] 02/17/2025 3:30 PM EDT Office Visit [facility] MEDICINE [address] [place] [phone] Stefanie Conteh ANP [address] [place] [address] documented as of this encounter Visit Diagnoses Not on filedocumented in this encounter Additional Health Concerns Assessment Noted Time PHQ-9 Depression Total Score: 6 02/19/20 24 1:12 PM EDT documented as of this encounter Care Teams Document Control Assistant Relationship Specialty Start Date End Date Stefanie Conteh ANP [address] [place] [address] PCP - General Family Medicine 09/09/20 Lizbeth Alexander Specimen CollectorNeedle Punch Machine Operator 05/16/24 documented as of this encounter
--- OUTSIDE RECORDS SUMMARY | 2024-12-06 15:06 | XMS_ITS | Encounter Summary ---
Demographics Address [address] [place] [address] Home Phone Mobile Phone Email Address Preferred Language en Marital Status Single Scientologist Affiliation Unknown Race Other Race Ethnic Group Unknown Author Organization [employer] Address [address] [facility] 7[address] [place] [address] Care Team Providers Care Loom Operator Apprentice Name Role Phone Stefanie Conteh Primary Care Provider [phone] Reason for Visit * Reason Comments Med Refill Encounter Details Date Type Department Care Team ([facility] Contact Info) Description 11/05/2023 Refill [facility] MEDICINE [address] [place] [address] Stefanie Conteh ANP [address] [place] [address] Mood disorder (CMS/HCC) Social History Tobacco Use Types Packs/Day Years Used Date Smoking Tobacco: Former Cigarettes Smokeless Tobacco: Never Alcohol Use Standard Drinks/Week Comments Not Currently 0 (1 standard drink = 0.6 oz pur e alcohol) Depression Answer Date Recorded Patient Health Questionnaire-9 Score 13 07/04/2023 Housing Stability Answer Date Recorded What is [...] Answer Date Recorded Patient Health Questionnaire-2 Score 5 07/04/2023 Comments No Sex and Gender Information Value [...] Description 12/13/2024 1:15 PM EST Office Visit [facility] [address] [place] [phone] Cami Rosen MD [address] [place] [phone] 02/17/2025 3:30 PM EDT Office Visit [facility] [address] [place] [phone] Stefanie Conteh ANP [address] [place] [phone] documented as of this encounter Visit Diagnoses Diagnosis Mood disorder (CMS/HCC) Unspecified episodic mood disorder documented in this encounter Additional Health Concerns Assessment Noted Time PHQ-9 Depression Total Score: 13 023 2:54 PM EDT documented as of this encounter Care Teams Loom Operator Apprentice Relationship Specialty Start Date End Date Stefanie Conteh ANP [address] [place] [phone] PCP - General Family Medicine 09/09/20 Lizbeth Alexander Behavioral Sciences Department ChairSurgical Endoscopist 05/16/24 documented as of this encounter
== END 2024-12-06 13:04 | disposition home or self-care (01) ==
LOC: HO.US 13:03
PROVIDERS: PCP Nurse Practitioner Primary Care; Visit Provider Advanced Practice Midwife
DX: Z30.431 Encounter for routine checking of intrauterine contraceptive device (principal); D21.9 Benign neoplasm of connective and other soft tissue, unspecified
CPT/HCPCS: 76830; 76856

== ENCOUNTER → 2024-12-06 13:05 | Outpatient (BNV) | payer MEDICAID, SELFPAY | PROVIDERS: PCP Nurse Practitioner Primary Care; Visit Provider Radiology Diagnostic Radiology | DX: R10.31 Right lower quadrant pain (principal); D25.9 Leiomyoma of uterus, unspecified; Z97.5 Presence of (intrauterine) contraceptive device | CPT/HCPCS: 76830; 76856 ==

== ENCOUNTER 2025-05-01 22:12 | Emergency (ER) | payer MEDICAID, SELFPAY ==
[2025-05-01 22:17] VITALS: BP 133/82; PULSE 78; RESP 17; TEMP 36.8; O2SAT 98; BMI 31.1
[2025-05-01 22:55] LABS: MANUAL DIFF FLAG NO
[2025-05-01 22:56] LABS: Hematocrit 41.5 % (37.0-47.0); Hemoglobin 14.1 g/dl (12.0-16.0); Imm Gran Abs Auto 0.02 X10*3/uL (0.00-0.03); Imm Gran Pct Auto 0.3 % (0.0-0.4); Lymphocytes Absolute Auto 2.6 X10*3/uL (1.2-4.9); Mean Corpuscular HGB Conc 34.0 g/dl (31.0-35.0); Mean Corpuscular Hemoglobin 29.6 pg (27.0-33.0); Mean Corpuscular Volume 87.2 fL (80.0-98.0); NRBC Abs Auto 0.000 X10*3/uL (0.0-0.012); NRBC Pct Auto 0.0 /100WBC (0.0-0.2); Platelet Count 377 X10*3/uL (160-400); Red Blood Count 4.76 X10*6/uL (4.20-5.50); White Blood Count 7.9 X10*3/uL (4.8-10.8)
[2025-05-01 22:57] VITALS: BP 132/79; PULSE 72; RESP 16; TEMP 36.6; O2SAT 98
--- NOTE | 2025-05-01 23:04 | PC.NURSE ---
pt reports pain in lower abdomen radiating to lower back, [place] airport, came straight here. pain worse while urinating. UA provided and sent to lab.
[2025-05-01 23:09] LABS: Alanine Aminotransferase 22 U/L (0-31); Albumin Level 4.7 g/dL (3.5-5.0); Alkaline Phosphatase 89 U/L (39-117); Anion Gap 12 (12-20); Aspartate Amino Transferase 20 U/L (5-31); Blood Urea Nitrogen 22 mg/dL (9-16); Calcium 9.9 mg/dL (8.4-10.2); Carbon Dioxide 25 mmol/L (22-29); Chloride 108 mmol/L (96-108); Creatinine Clr Calc Pharmacy 53.6; Estimated Glomerular Filt Rate 56; Potassium 4.2 mmol/L (3.3-5.1); Sodium 141 mmol/L (135-145); Total Protein 7.6 g/dL (6.5-8.0)
[2025-05-01 23:11] LABS: Appearance Urine Clear; Glucose Urine UA Negative (Negative); PH 5.5 (5.0-9.0); Specific Gravity - Urine 1.020 (1.005-1.025)
--- NOTE | 2025-05-01 23:29 | ED_ITS ---
HPI - Female Genitourinary General Chief complaint: Urogenital-Female Stated complaint: uti Time Seen by Provider: 05/01/25 23:29 History of Present Illness ED Provider: ronald HPI Narrative: 55-year-old female who presents with flank pain subjective foul odor and gross hematuria per her. She tells me she had a week hospitalization at [facility] for kidney infection previously and feels similar. Related Data Previous Rx's ?Medication ?Instructions ?Recorded phenazopyridine 200 mg tablet 200 mg PO TID 6 doses #6 tabs 05/01/25 (Pyridium) sulfamethoxazole 800 1 tab PO Q12H 10 days #20 ta bs 05/01/25 mg-trimethoprim 160 mg tablet (Bactrim DS) Allergies Allergy/AdvReac Type Severity Reaction Status Date / Time No Known Allergies Allergy Verified 05/01/25 22:20 [facility] Past Medical History Medical History Hypertension Kidney disease High cholesterol Asthma Social History Social History Alcohol intake: never Comment: counts correct Patient Tobacco Use Status: Tobacco use Unknown Advance Directives: No Advance Directives Information Provided: No Do you have a plan to hurt others: No Plan Current occupation: right handed Physical Exam 2 Exam: Exam: EXAM: Gen: Alert, awake, well appearing, well hydrated. Head: Atraumatic Eyes: Anicteric, Normal conjunctiva. ENT: Moist mucosa, no pallor. ? Neck: Supple. Skin: ?No observable rash or bruising on exposed or examined skin Respiratory: Breathing comfortably, No distress.Clear to auscultation bilaterally, symmetric chest expansion, No wheeze, rales, ronchi. Cardiovascular: Regular rate and rhythm. No murmurs or rub. Well perfused periphery, warm extremities. No edema. ? Abdominal: Suprapubic tenderness no other significant abdominal tenderness Soft, no objective distension. No palpable masses or obvious organomegaly. ?No guarding, no rebound tenderness or other peritoneal findings. : Right flank tenderness Neuro: Alert. Gross movement of all extremities intact. ? Psych: Calm. Cooperative. MSK: No grossly visible deformity. Vital signs: See flowsheet Vital Signs: Vital Signs: Last Vital Signs Temp 97.8 F 05/02/25 00:16 Pulse 75 05/02/25 00:16 Resp 16 05/02/25 00:16 BP 106/58 L 05/02/25 00:16 Pulse Ox 99 05/02/25 00:16 O2 Del Method Room Air 05/02/25 00:16 BMI result Body Mass Index 31.1 Medications Administered Discontinued Medications Generic Name Dose Route Start Last Admin Trade Name Natalie PRN Reason Stop Dose Admin Acetaminophen 975 mg 05/01/25 23:53 05/02/25 00:10 Acetaminophen 325 Mg Tablet PO 05/01/25 23:54 975 mg ONCE ONE Administration Ketorolac Tromethamine 30 mg 05/01/25 23:53 05/02/25 00:10 Ketorolac Tromethamine 30 Mg/Ml Vial IM 05/01/25 23:54 30 mg ONCE ONE Administration Phenazopyridine HCl 200 mg 05/01/25 23:53 05/02/25 00:11 Phenazopyridine Hcl 200 Mg Tablet PO 05/01/25 23:54 200 mg ONCE ONE Administration Medical Decision Making Medical Decision Making MDM Narrative: Medical Decision Makin-year-old female who reports a history of admission at [facility] a few years ago for what she describes as a kidney infection probably pyelonephritis now with flank pain malodorous urine. Surprisingly our urinalysis here does not show any leukocytes however she describes significant cloudiness and malodor and clinically has the appearance of a recurrent pyelonephritis episode. Labs including CBC and chemistry are reassuring. Ultrasound excludes urologic obstruction. No right upper quadrant tenderness to suggest biliary pathology no McBurney's point tenderness or suggestion of appendicitis or other acute surgical pathology. Presumed clinical pyelonephritis treatment with NSAIDs antibiotics discharged home. Preliminary Favored Differential Diagnosis: UTI, cystitis, pyelonephritis, kidney stone among additional considered etiologies Testing Interpreted Independently: Not Applicable Radiology or Lab testing Results Reviewed: Not Applicable Consults: Not Applicable Independent Historians/External Chart Reviews: Attempted review through remote [facility] records but I do not see any documentation of pyelonephritis or kidney related admission only dizziness ED visit in the last 5 years Social Determinants of Health Impacting MDM/Planning: Not Applicable Lab Data 05/01/25 22:51 05/01/25 22:51 Labs: Lab Results 05/01/25 05/01/25 Range/Units 22:51 23:01 WBC 7.9 (4.8-10.8) X10*3/uL RBC 4.76 (4.20-5.50) X10*6/uL Hgb 14.1 (12.0-16.0) g/dl Hct 41.5 (37.0-47.0) % MCV 87.2 (80.0-98.0) fL MCH 29.6 (27.0-33.0) pg MCHC 34.0 (31.0-35.0) g/dl RDW 13.8 (11.0-16.0) % Plt Count 377 (160-400) X10*3/uL MPV 10.1 (9.4-12.3) fL Immature Gran % (Auto) 0.3 (0.0-0.4) % Neut % (Auto) 54.6 (45-73) % Lymph % (Auto) 33.2 (20-40) % [place] % (Auto) 7.6 (2-11) % Eos % (Auto) 3.3 (0-4) % Baso % (Auto) 1.0 (0-2) % Lymph # (Auto) 2.6 (1.2-4.9) X10*3/uL [place] # (Auto) 0.6 (0.1-1.2) X10*3/uL Eos # (Auto) 0.3 (0.0-0.4) X10*3/uL Baso # (Auto) 0.1 (0.0-0.2) X10*3/uL Abs Immat Gran (auto) 0.02 (0.00-0.03) X10*3/uL Absolute Neuts (auto) 4.3 (2.0-8.3) x10*3/uL Absolute Nucleated RBC 0.000 (0.0-0.012) X10*3/uL Nucleated RBC % (auto) 0.0 (0.0-0.2) /100WBC Sodium 141 (135-145) mmol/L Potassium 4.2 (3.3-5.1) mmol/L Chloride 108 (96-108) mmol/L Carbon Dioxide 25 (22-29) mmol/L Anion Gap 12 (12-20) BUN 22 H (9-16) mg/dL Creatinine 1.02 (0.5-1.4) mg/dL Estim Creat Clear Calc 53.6 Estimated GFR 56 Random Glucose 101 (60-115) mg/dL Calcium 9.9 (8.4-10.2) mg/dL Total Bilirubin 0.3 (0.0-1.0) mg/dL AST 20 (5-31) U/L ALT 22 (0-31) U/L Alkaline Phosphatase 89 (39-117) U/L Total Protein 7.6 (6.5-8.0) g/dL Albumin 4.7 (3.5-5.0) g/dL Urine Color Yellow Urine Appearance Clear Urine pH 5.5 (5.0-9.0) Ur Specific [place] 1.020 (1.005-1.025) Urine Protein Negative (Neg-Trace) mg/dL Urine Glucose (UA) Negative (Negative) mg/dL Urine Ketones Negative (Negative) mg/dL Urine Blood Negative (Negative) Urine Nitrite Negative (Negative) Ur Leukocyte Esterase Negative (Negative) Procedures Procedure Narrative Procedure Narrative: EMERGENCY ULTRASOUND INTERPRETATION-Limited Retroperitoneal (Renal) [This study was ordered, performed, and interpreted by myself. The study reveals: Impression: NO EVIDENCE OF UROLOGIC OBSTRUCTION] [Indication: FLANK PAIN Bladder: ANECHOIC URINE Right Kidney: NO HYDRONEPHROSIS Left Kidney: NO HYDRONEPHROSIS Performed by: Asa Yepez MD Images were stored CPT: 33781] Discharge Plan Discharge Clinical Impression: Urinary tract infection Patient Disposition: Home, Self-Care Instructions: Urinary Tract Infection in Women (DC) Additional Instructions: _ DISCHARGE DIAGNOSES: Likely kidney infection/urinary tract infection HISTORY OF PRESENTATION: ?Malodorous urine and right flank pain EMERGENCY DEPARTMENT COURSE,TESTS, TREATMENTS: While in the ED today you had reassuring lab work and surprisingly your urinalysis did not show infection however we have initiated treatment based on your clinical presentation DISCHARGE MEDICATIONS: ?[We have made no changes to your regular medication regimen] antibiotics has been prescribed. Take ibuprofen or Tylenol for pain you can use a heating pad drink plenty of fluid. FOLLOW-UP: ?Call your primary or general physician soon as possible to discuss your symptoms, your ED visit and to discuss follow up plans PCP for follow up. They should call the lab and follow up with urine culture which I have ordered INSTRUCTIONS ?& RETURN PRECAUTIONS: If any symptoms change first call your primary physician, if it is after-hours your primary doctors office should have a provider magnetic resonance imaging coordinator you can speak with. If the symptoms are severe or very concerning to you then call 911 or return to the ED. Asa Yepez MD Emergency Physician [facility] Prescriptions: New sulfamethoxazole-trimethoprim [Bactrim DS] 800-160 mg tablet 1 tab PO Q12H 10 Days Qty: 20 0RF phenazopyridine [Pyridium] 200 mg tablet 200 mg PO TID Qty: 6 0RF Interventions: ED Discharge Assessment Last Done: 05/02/25 00:16 Discharge Date/Time: 05/02/25 00:24 Print Language: Kuwaiti
--- OUTSIDE RECORDS SUMMARY | 2025-05-01 23:53 | XMS_ITS | Clinical Summary ---
Demographics Address [address] [place] [address] Home Phone Preferred Language es Marital Status Single Baptist Affiliation Unknown Race Unknown Ethnic Group Unknown Author Organization [facility], Address [address] [place] [address] [place] [address] Phone Care Team Providers Care Collarette Separator Name Role Phone Unavailable Primary Care Provider Unavailabl e Allergies No [...] Visit [facility], [address] [place] [address] Kenny Teran MD [address] [place] [phone] Health Maintenance Due Date Last Done Comments Breast Cancer Screening 1970 Hepatitis B Vaccine (1 of 3 - 19+ 3-dose series) 1990 12/30/2015, 10/28/2009, 12/18/2008, Additional history exists Pneumococcal Vaccine: 50+ Ye ars (2 of 2 - PCV) 11/30/2001 11/30/2000 Colorectal Cancer Screening: Annual FOBT 2020 Colorectal Cancer Screening: Colonoscopy 2020 Colorectal Cancer Screening: Sigmoidoscopy 2020 Influenza Vaccine (#1) 2025 4, 06/08/2018, 07/12/2017, Additional history exists Pneumococcal Vaccine: Peds ( 0 to 5 Years) and At-Risk Patients (6 to 49 Years) Discontinued 11/30/2000 Insurance * Guarantor: Lisandra Haley Account Type Relation to Patient Date of Phone Billing Address Personal/Family Self 1970 [address] [place] [address] [place] * Guarantor: Lisandra Haley Account Type Relation to Patient Date of Phone Billing Address Personal/Family Self 1970 [address] [place] [id number] * Guarantor: Lisandra Haley Account Type Relation to Patient Date of Phone Billing Address Personal/Family Self 1970 [address] [place] [id number]
--- OUTSIDE RECORDS SUMMARY | 2025-05-01 23:53 | XMS_ITS | Encounter Summary ---
Demographics Address [address] [place] [address] Mobile Phone Home Phone Email Address Preferred Language en Marital Status Single Judaism Affiliation Unknown Race Other Race Ethnic Group Unknown Author Organization [employer] Address [address] [place] [address] Care Team Providers Care Florist Name Role Phone Stefanie Conteh Primary Care Provider Encounter Details Date Type Department Care Team ([facility] st Contact Info) Description 02/06/2023 Orders Only [facility] MEDICINE [address] [place] [address] Stefanie Conteh ANP [address] [place] [address] Social History Tobacco Use Types Packs/Day Years Used Date Smoking Tobacco: Never Assessed Comments Unknown Sex and Gender Information Value Date Recorded Sex Assigned at Female 08/08/2022 10:14 AM EDT Legal Sex Female 10:14 AM EDT Gender Identity Female 08/08/2022 10:14 AM EDT Sexual Orientation Straight 08/08/2022 10 :14 AM EDT documented as of this encounter Plan of Treatment Not on file documented as of this encounter Procedures Procedure [...] 1:06 PM EST 08/15/2023 8:20 AM EST Carlo [facility] - 08/22/2023 1:41 PM EST ----- ------- Name: Lisandra Haley Age/Sex: 53/F : 1970 Unit#: [id number] Attend Dr: JOAQUIN CORNELIUS CNM Re08/14/23 Status: DEP REF Location: HO.HHCLNP Disch: ----- ------- SPEC : [id number] RECD: 08/15/23 STATUS: MARIELA DICKSON NUM: [id number] MONAE: 08/14/23-[address] [facility] [address]: JOAQUIN CORNELIUS CNM ENTERED: 08/15/23 SP TYPE: Pap Smr FLO : ORDERED: Pap Smear Interpretation Satisfactory for evaluation. No endocervical cells seen. Negative for intraepithelial lesion or malignancy. HPV mRNA E6/E7: NOT DETECTED This assay detects E6/E7 viral messenger RNA (mRNA) from 14 high-risk HPV types (16, 18, 31, 33, 35, 39, 45, 51, 52, 56, 58, 59, 66, 68) HPV testing performed by [facility], [place], [place]. See reference laboratory pion of the EMR for entire report. Clinical Information LMP: Unknown date Previous PAP test: Unknown date/findings Material Received ThinPrep-Cervical ----- ------- Signed (signature on file) MARY Aviles (ASCP) 08/22/23 1341 ----- ------- END OF REPORT Jaoquin Cornelius [facility] CYTOLOGY ORDERABLES F inal Result [facility] [address] [place] [address] [phone] * HPV mRNA E6/E7 w/Reflex to HPV Genotypes 16, 18/45 (08/14/2023 1:06 PM EST) HPV nRNA E6/E7 Not Detected Not Detected [facility] Comment:Methodology: Transcr iption-Mediated AmplificationThis assay detects E6/E7 viral messenger RNA (mRNA) from 14high-risk HPV types (16,18,31,33,35,39,45,51,52,56,58,59,66,68).Cervical sources are required for HPV testing.If a vaginal source from a patient who has had atotal hysterectomy with removal of cervix wassubmitted, please contact the testing laboratoryfor alternative testing options.For additional information, please refer tohttp://education.OMGPOP/faq/YIE524g1(This link if provided for information/educational purposes only.)THIS TEST WAS PERFORMED AT:[employer] [place] [phone] TAPIA MD HPV mRNA E6/E7 TNP [facility] HPV 16 RNA [facility] HPV 18/45 RNA [facility] 08/14/2023 1:06 PM EST 08/15/2023 8:20 AM EST us Joaquin Cornelius [facility] CYTOLOGY ORDERABLES F inal Result [facility] [address] [place] [phone] * (ABNORMAL) Comprehensive Metabolic Panel (07/28/2023 9:16 PM EDT) Sodium 138 135 - 145 mmol/L [facility] Potassium 3.8 3.3 - 5.1 mmol/L [facility] Chloride 104 96 - 108 mmol/L [facility] Carbon Dioxide 24 22 - 29 mmol/L [facility] Anion Gap 14 12 - 20 [facility] Urea Nitrogen (BUN) 18(H) 9 - 16 mg/dL [facility] Creatinine, Serum 0.91 0.5 - 1.4 mg/dL [facility] Creatinine Clr Calc Pharmacy 65.5 [facility] Comment:Provided height and weight: 154.94 cm,71.668 kg.eGFR (calculated from the MDRD study equation) and eCrCl(calculated from the Cockcroft-Gault equation) are based ondifferent parameters and may not yield comparable results.If eCrCl result is absurd, please check patient'sheight/weight. Estimated Glomerular Filt Rate >60 [facility] Comment:NOTE: For -Am erican individuals, multiply the result by 1.210.Chronic Kidney Disease: Estimated GFR < 60 mL/min/1.88j5Rbvxnk Kidney Disease: Estimated GFR < 15 mL/min/1.73m2 Glucose 103 60 - 115 mg/dL [facility] Calcium 10.1 8.4 - 10.2 mg/dL [facility] Bilirubin, Total 0.2 0.0 - 1.0 mg/dL [facility] Aspartate Amino Transferase 18 5 - 31 U/L [facility] Alanine Aminotransferase 23 0 - 31 U/L [facility] Total Protein 7.0 6.5 - 8.0 g/dL [facility] Albumin Level 4.1 3.5 - 5.0 g/dL [facility] Alkaline Phosphatase 45 39 - 117 U/L [facility] 07/28/2023 9:16 PM EDT 07/28/2023 9:19 PM EDT us [facility] External Provider LAB BLO OD ORDERABLES Final Result [facility] [address] [place] [phone] [phone] * Urinalysis w/reflex microscopic (07/28/2023 9:16 PM EDT) Color Urine Yellow [facility] Appearance Urine Clear [facility] PH 6.0 5.0 - 9.0 [facility] Glucose Urine UA Negative Negative mg/dL [facility] Urine Blood Negative Negative [facility] Specific [place] - Urine 1.010 1.005 - 1.025 [facility] Urine Protein Negative Neg-Trace mg/dL [facility] Urine Ketones Negative Negative mg/dL [facility] Nitrite Urine Negative Negative [facility] Leukocyte Esterase Urine Negative Negative [facility] 07/28/2023 9:16 PM EDT 07/28/2023 9:19 PM EDT Narrative [facility] - 07/28/2023 9:25 PM EDT [id number], Clean Catch us [facility] External Provider LAB URI NE ORDERABLES Final Result [facility] [address] [place], [place] [phone] * (ABNORMAL) CBC auto differential (07/28/2023 9:16 PM EDT) White Blood Count 8.3 4.8 - 10.8 X10*3/uL [facility] Red Blood Count 4.63 4.20 - 5.50 X10*6/uL [facility] Hemoglobin 13.4 12.0 - 16.0 g/dl [facility] Hematocrit 40.7 37.0 - 47.0 % [facility] Mean Corpuscular Volume 87.9 80.0 - 98.0 fL [facility] Mean Corpuscular Hemoglobin 28.9 27.0 - 33.0 pg [facility] Mean Corpuscular HGB Conc 32.9 31.0 - 35.0 g/dl [facility] Red Cell Distribution Width 13.8 11.0 - 16.0 % [facility] Platelet Count 384 160 - 400 X10*3/uL [facility] Mean Platelet Volume 9.9 9.4 - 12.3 fL [facility] Neutrophils Percent Auto 66.3 45 - 73 % [facility] Imm Gran Pct Auto 0.5(H) 0.0 - 0.4 % [facility] Lymphocytes Percent Auto 24.5 20 - 40 % [facility] Monocytes Percent Auto 6.4 2 - 11 % [facility] Eosinophils Percent Auto 1.7 0 - 4 % [facility] Basophils Percent Auto 0.6 0 - 2 % [facility] NRBC Pct Auto 0.0 0.0 - 0.2 /100WBC [facility] Neutrophils Absolute Auto 5.5 2.0 - 8.3 x10*3/uL [facility] Imm Gran Abs Auto 0.04(H) 0.00 - 0.03 X10*3/uL [facility] Lymphocytes Absolute Auto 2.0 1.2 - 4.9 X10*3/uL [facility] Monocytes Absolute Auto 0.5 0.1 - 1.2 X10*3/uL [facility] Eosinophils Absolute Auto 0.1 0.0 - 0.4 X10*3/uL [facility] Basophils Absolute Auto 0.1 0.0 - 0.2 X10*3/uL [facility] NRBC Abs Auto 0.000 0.0 - 0.012 X10*3/uL [facility] 07/28/2023 9:16 PM EDT 07/28/2023 9:19 PM EDT us [facility] External Provider LAB BLO OD ORDERABLES Final Result [facility] [address] [place] [address] [phone] documented in this encounter Visit Diagnoses Not on filedocumented in this encounter Care Teams Florist Relationship Specialty Start Date End Date Stefanie Conteh ANP [address] [place] [address] PCP - General Family Medicine 09/09/20 Lizbeth Alexander Food RunnerInsert Operator 05/16/24 documented as of this encounter
[2025-05-02 00:13] VITALS: BP 106/58; PULSE 75; RESP 16; TEMP 36.6; O2SAT 99
[2025-05-02 00:16] VITALS: BP 106/58; PULSE 75; RESP 16; TEMP 36.6; O2SAT 99
== END 2025-05-02 00:24 | disposition home or self-care (01) ==
PROVIDERS: Emergency Provider Emergency Medicine; PCP Nurse Practitioner Primary Care
DX: N39.0 Urinary tract infection, site not specified (principal); I10 Essential (primary) hypertension
CPT/HCPCS: 36415; 76775; 80053; 81003; 85025; 96372; 99284; J1885

== ENCOUNTER 2025-06-23 10:23 | Outpatient (REF) | payer MEDICAID, SELFPAY ==
[2025-06-23 12:18] LABS: Cholesterol 238 mg/dL (<200); HDL Cholesterol 48 mg/dL (>40); Triglycerides 93 mg/dL (<150)
--- OUTSIDE RECORDS SUMMARY | 2025-06-23 13:13 | XMS_ITS | Encounter Summary ---
Demographics Address [address] [place] [address] Mobile Phone Home Phone Email Address Preferred Language en Marital Status Single Rastafarian Affiliation Unknown Race Other Race Ethnic Group Unknown Author Organization [employer] Address [address]t [place] [address] Care Team Providers Care Towel Folder Name Role Phone Stefanie Conteh Primary Care Provider [phone] Reason for Visit * Reason Comments Med Refill Encounter Details Date Type Department Care Team ([facility] Contact Info) Description 11/05/2023 Refill [facility] MEDICINE [address] [place], [place] [phone] Stefanie Conteh ANP [address] [place] [address] Mood disorder (CMS/HCC) Social History Tobacco Use [...] Care Team (Late st Contact Info) Description 08/08/2025 11:00 AM EDT Office Visit [facility]INE [address] [place] [phone] Stefanie Conteh ANP [address] [place] [phone] 08/19/2025 1:45 PM EST Office Visit [facility] [address] [place] [phone] Jayashree Gonzales CNM [address] [place] [phone] documented as of this encounter Visit Diagnoses Diagnosis Mood disorder (CMS/HCC) Unspecified episodic mood disorder documented in this encounter Additional Health Concerns Assessment Noted Time PHQ-9 Depression Total Score: 13 023 2:54 PM EDT documented as of this encounter Care Teams Towel Folder Relationship Specialty Start Date End Date Stefanie Conteh ANP [address] [place] [phone] PCP - General Family Medicine 09/09/20 Lizbeth Alexander Tribal JudgeDog Walker 05/16/24 documented as of this encounter
--- OUTSIDE RECORDS SUMMARY | 2025-06-23 13:13 | XMS_ITS | Encounter Summary ---
Demographics Address [address] [place] [address] Mobile Phone Home Phone Email Address Preferred Language en Marital Status Single Mormonism Affiliation Unknown Race Other Race Ethnic Group Unknown Author Organization [employer] Address [address] [facility] [facility] [address] [place] [address] Care Team Providers Care Manager Core Name Role Phone Stefanie Conteh Primary Care Provider [phone] Reason for Visit * Reason Onset Date Comments PT1 05/20/2024 Encounter Details Date Type Department Care Team ([facility] Contact Info) Description 05/20/2024 Telephone [facility] MEDICINE [address] [place], [place] [phone] Stefanie Conteh ANP [address] [place] [address] PT1 Social History Tobacco Use Types Packs/Day [...] verified: Yes Provider name or facility name: [facility] Facility Address: [address] [place] [address] Escort needed: No Do you have a wheelchair: No If yes- Manual or electric: n/a Visits: all future visits documented in this encounter Plan of Treatment Upcoming Encounters Date Type Department Care Team (Late st Contact Info) Description 08/08/2025 11:00 AM EDT Office Visit [facility] [address] [place] [phone] Stefanie Conteh ANP [address] [place] [address] 08/19/2025 1:45 PM EST Office Visit [facility] [address] [place] [phone] Jayashree Gonzales CNM [address] [place] [phone] documented as of this encounter Visit Diagnoses Not on filedocumented in this encounter Additional Health Concerns Assessment Noted Time PHQ-9 Depression Total Score: 6 02/19/20 24 1:12 PM EDT documented as of this encounter Care Teams Manager Core Relationship Specialty Start Date End Date Stefanie Conteh ANP [address] [place] [address] PCP - General Family Medicine 09/09/20 Lizbeth Alexander Manager SubwayReal Estate Coordinator 05/16/24 documented as of this encounter
--- OUTSIDE RECORDS SUMMARY | 2025-06-23 13:13 | XMS_ITS | Clinical Summary ---
Demographics Address [address] [place] [address] Mobile Phone Home Phone Email Address Preferred Language en Marital Status Single Yarsanism Affiliation Unknown Race Other Race Ethnic Group Unknown Author Organization [employer] Address [address] [place] [address] Care Team Providers Care Overhead Garage Door Hanger Name Role Phone Jose G Castillo NILSA Primary Care Provider [phone] Allergies No known active allergies Medications * This document contains information received from the source organization and may not represent a complete record from that organization. albuterol 108 (90 Base) MCG/ACT inhalerIndication s:Moderate persistent asthma without complication Inhale 2 puffs every 6 (six) hours if needed for wheezing. 18 g 11 07/04/20 23 Active Blood Pressure kitIndications:Es sential hypertension 1 kit in the morning. 1 kit 10/12/19 24 Active lisinopril 20 MG tabletIndications :Essential hypertension TAKE 1 TABLET BY MOUTH EVERY DAY IN THE MORNING 90 tablet 3 07/02/20 24 Active budesonide-formot jessica (Symbicort) 160-4.5 MCG/ACT inhalerIndication s:Moderate persistent asthma without complication Inhale 2 puffs every 12 (twelve) hours. Rinse mouth with water after using. 1 each 07/05/20 24 Active atorvastatin (Lipitor) 40 MG tabletIndications :Hyperlipidemia, unspecified hyperlipidemia type Take 1 tablet (40 mg) by mouth at bedtime. 90 tablet 3 10/16/19 25 Active ARIPiprazole (Abilify) 10 MG tabletIndications :Mood disorder (CMS/HCC) Take 1.5 tablets (15 mg) by mouth Once per day. 45 tablet 1 05/14/20 25 025 Active hydrOXYzine pamoate (Vistaril) 50 MG capsuleIndication s:Mood disorder (CMS/HCC) Take 1 capsule (50 mg) by mouth if needed in the morning and at bedtime for anxiety (and sleep.). 60 capsule 1 05/14/20 25 025 Active divalproex (Depakote ER) 500 MG 24 hr tabletIndications :Mood disorder (CMS/HCC) TAKE 1 TABLET BY MOUTH EVERYDAY AT BEDTIME 90 tablet 06/18/20 25 Active divalproex (Depakote ER) 500 MG 24 hr tabletIndications :Mood disorder (CMS/HCC) TAKE 1 TABLET BY MOUTH EVERYDAY AT BEDTIME 90 tablet 01/10/20 25 025 Discontinued(R eorder (will not trigger notification to Pharmacy)) Active Problems Problem Noted Date Diagnosed Date [...] will be refer for psychiatry services with [facility] psych provider, Tylor Martínez and will continue [...] mental health PLAN: 1. Follow up with [facility]: Not recommended for follow-up 2. Patient goal is to be connected to services 3. Behavioral Recommendations a. Will comply with medication b. Will engaged in therapy and psychiatry when established c. May reach out to [facility], if need Auditory hallucination 07/05/2023 Essential hypertension [...] organization. Date Type Department Care Team Description 06/18/[address] [facility] CHC MED & PEDS [address] [place] [address] Jose G Castillo ANP Mood disorder (CMS/HCC) 06/16/[address] [facility] MEDICINE [address] [place] [address] Joaquin Cornelius CNM chart prep 06/05/[address] [facility] WALK-IN CENTER [address] [place] [address] Ferrell ManaJONATHAN 05/14/[address] [facility] MEDICINE [address], [place] [phone] Jose G Castillo ANP Mood disorder ([facility]) 05/01/2025 Orders Only GENERIC EXTERNAL DATA DEPARTMENT Provider, Generic External Data from Last 3 Months Immunizations Immunization Administration Dates Next Due Hep A, Adult 12/30/2015,10/28/2009,11/20/2008 Hep B, adult 12/30/2015, 0,12/18/2008,11/20 Influenza injectable quadriv alent IIV4 with preservative 07/09/2015 Influenza injectable quadriv alent preservative free 11/09/2023,06/08/2018,07/12/2017,07/06,07/04/2016 Pneumococcal Conjugate PCV 20 02/17/2025 Pneumococcal Polysaccharide PPSV23 11/30/2000 TD (adult), 2 [...] Sign Reading Time Taken Comments Blood Pressure 133/89 02/17/2025 3:26 PM EDT Pulse 87 02/17/2025 3:26 PM EDT Temperature 36.3 C (97.4 F) 11/20/2024 4:20 PM EST Respiratory Rate 16 02/17/2025 3:26 PM EDT Oxygen Saturation 99% 11/20/2024 4:20 PM EST Inhaled Oxygen Concentration - - Weight 71.2 kg (157 lb) 02/17/2025 3:26 PM EDT Height 147.3 cm (4' 10 ) 02/17/2025 3:26 PM EDT Body Mass Index 32.81 02/17/2025 3:26 PM EDT Plan of Treatment Upcoming Encounters Date Type Department Care Team (Late st Contact Info) Description 08/08/2025 11:00 AM EDT Office Visit [facility] MEDICINE [address] [place] [address] Jose G Castillo ANP [address] [place] [address] 08/19/2025 1:45 PM EST Office Visit [facility] MEDICINE [address] [place] [address] CalvinchelsiJoaquin andrews, CNM [address] [place] [address] Health Maintenance Due Date Last Done Comments CT Colonography 1970 Colonoscopy 1970 Colorectal Cancer Screening 1970 FIT DNA/Cologuard 1970 FIT 1970 FOBT 1970 Sigmoidoscopy 1970 Zoster Vaccines (1 of 2) 2021 Depression Monitoring 04/04/2025 10/04/2024, 024 COVID-19 Vaccine ( season) 2025 06/25/2021 Influenza Vaccine (#1) 2025 , 06/08/2018, 07/12/2017, Additional history exists Diabetes: Hemoglobin A1C 07/05/2025 07/05/2024 Alcohol/Substance Use Screening 11/20/2025 11/20/2024 SDOH Screening 11/20/2025 11/20/2024 Disability Screening 02/17/2026 02/17/2025 Tobacco Screening 02/17/2026 02/17/2025 Mammogram 07/30/2026 07/30/2024, 07/10, 12/05/2018, Additional history exists Cervical Cancer Screening 08/14/2028 HPV/Cotest 08/14/2028 08/14/2023 Pap Smear 08/14/2028 08/14/2023 Lipid Panel 06/23/2030 06/23/2025, 06/10, 07/20/2023 DTaP/Tdap/Td Vaccines (4 - Td or Tdap) 11/09/2033 11/09/2023, 10/13/2012, 12/08/2010, Additional history exists RSV Patients and Patients Aged 60 years or older (1 - 1-dose 75+ series) 2046 Hepatitis A Vaccines Completed 12/30/2015, 10/28/2009, 11/20/2008 Hepatitis B Vaccines Completed 12/30/2015, 10/28/2009, 12/18/2008, Additional history exists HIV Screening Completed 07/05/2024, 12/08, 12/28/2020 Hepatitis C Screening Completed 07/05/2024 Pneumococcal Vaccine: 50+ Years Completed 02/17/2025, 11/30/2000 HIB Vaccines Aged Out No longer eligi ble based on patient's age to complete this topic HPV Vaccines Aged Out No longer eligi ble based on patient's age to complete this topic IPV Vaccines Aged Out No longer eligi ble based on patient's age to complete this topic Meningococcal B Vaccine Aged Out No l onger eligible based on patient's age to complete [...] Procedure Name Priority Date/Time Associated Diagnosis Comments LIPID PANEL, STANDARD Routine 06/23/2025 10:45 AM EDT Hyperlipidemia, unspecified hyperlipidemia type URINALYSIS WITH REFLEX MICROSCOPIC Routine 05/01/2025 11:01 PM EDT COMPREHENSIVE METABOLIC PANEL Routine 05/01/2025 10:51 PM EDT CBC WITH AUTO DIFFERENTIAL Routine 05/01/2025 10:51 PM EDT BI MAMMOGRAM SCREEN W ROGER W IMPLANTS [...] Recently Relevant to Health Maintenance Results * (ABNORMAL) Lipid Panel, Standard (06/23/2025 10:45 AM EDT) Triglycerides 93 <150 mg/dL [facility] Comment:Desirable Triglyceri de: less than 150 mg/dLBorderline High Triglyceride 150-199 mg/dLHigh Triglyceride: 200-499 mg/dLVery High Triglyceride: greater than or equal to 5OO mg/dL Cholesterol 238(H) <200 mg/dL [facility] Comment:Desirable Cholestero l: less than 200 mg/dLBorderline High Cholesterol: 200-239 mg/dLHigh Cholesterol: greater than 239 mg/dL LDL Cholesterol Calculated 172(H) <100 mg/dL [facility] Comment:Desirable LDL: less than 100 mg/dLNear Optimal/Above Optimal LDL: 110- 129 mg/dLBorderline High LDL: 130-159 mg/dLHigh LDL: 160-189 mg/dLVery High LDL: greater than or equal to 190 mg/dL HDL Cholesterol 48 >40 mg/dL [facility] Comment:Desirable HDL: great er than 40 mg/dL Note: This HDL assay may give artificially low results in patients with liver disease. Blood Venous blood specimen / Unknown 06/23/2025 10:45 AM EDT 06/23/2025 11:12 AM EDT us JoseG Castillo [facility] LAB BLOOD ORDERABLES Final Resul t [facility] [address] [place] [address] [phone] * Urinalysis w/reflex microscopic (05/01/2025 11:01 PM EDT) Color Urine Yellow [facility] Appearance Urine Clear [facility] PH 5.5 5.0 - 9.0 [facility] Glucose Urine UA Negative Negative mg/dL [facility] Urine Blood Negative Negative [facility] Specific [place] - Urine 1.020 1.005 - 1.025 [facility] Urine Protein Negative Neg-Trace mg/dL [facility] Urine Ketones Negative Negative mg/dL [facility] Nitrite Urine Negative Negative [facility] Leukocyte Esterase Urine Negative Negative [facility] 05/01/2025 11:0 1 PM EDT 05/01/2025 11:05 PM EDT Narrative [facility] - 05/01/2025 11:12 PM EDT [id number], Clean Catch us Generic External Data Provider LAB URINE ORDERAB LES Final Result [facility] [address] [place] [address] [phone] * CBC auto differential (05/01/2025 10:51 PM EDT) White Blood Count 7.9 4.8 - 10.8 X10*3/uL [facility] Red Blood Count 4.76 4.20 - 5.50 X10*6/uL [facility] Hemoglobin 14.1 12.0 - 16.0 g/dl [facility] Hematocrit 41.5 37.0 - 47.0 % [facility] Mean Corpuscular Volume 87.2 80.0 - 98.0 fL [facility] Mean Corpuscular Hemoglobin 29.6 27.0 - 33.0 pg [facility] Mean Corpuscular HGB Conc 34.0 31.0 - 35.0 g/dl [facility] Red Cell Distribution Width 13.8 11.0 - 16.0 % [facility] Platelet Count 377 160 - 400 X10*3/uL [facility] Mean Platelet Volume 10.1 9.4 - 12.3 fL [facility] Neutrophils Percent Auto 54.6 45 - 73 % [facility] Imm Gran Pct Auto 0.3 0.0 - 0.4 % [facility] Lymphocytes Percent Auto 33.2 20 - 40 % [facility] Monocytes Percent Auto 7.6 2 - 11 % [facility] Eosinophils Percent Auto 3.3 0 - 4 % [facility] Basophils Percent Auto 1.0 0 - 2 % [facility] NRBC Pct Auto 0.0 0.0 - 0.2 /100WBC [facility] Neutrophils Absolute Auto 4.3 2.0 - 8.3 x10*3/uL [facility] Imm Gran Abs Auto 0.02 0.00 - 0.03 X10*3/uL [facility] Lymphocytes Absolute Auto 2.6 1.2 - 4.9 X10*3/uL [facility] Monocytes Absolute Auto 0.6 0.1 - 1.2 X10*3/uL [facility] Eosinophils Absolute Auto 0.3 0.0 - 0.4 X10*3/uL [facility] Basophils Absolute Auto 0.1 0.0 - 0.2 X10*3/uL [facility] NRBC Abs Auto 0.000 0.0 - 0.012 X10*3/uL [facility] 05/01/2025 10:5 1 PM EDT 05/01/2025 10:54 PM EDT us Generic External Data Provider LAB BLOOD ORDERAB LES Final Result [facility] [address] [place] [phone] * (ABNORMAL) Comprehensive Metabolic Panel (05/01/2025 10:51 PM EDT) Sodium 141 135 - 145 mmol/L [facility] Potassium 4.2 3.3 - 5.1 mmol/L [facility] Chloride 108 96 - 108 mmol/L [facility] Carbon Dioxide 25 22 - 29 mmol/L [facility] Anion Gap 12 12 - 20 [facility] Urea Nitrogen (BUN) 22(H) 9 - 16 mg/dL [facility] Creatinine, Serum 1.02 0.5 - 1.4 mg/dL [facility] Creatinine Clr Calc Pharmacy 53.6 [facility] Comment:Provided height and weight: 149.86 cm,69.8 kg.eGFR (calculated from the MDRD study equation) and eCrCl(calculated from the Cockcroft-Gault equation) are based ondifferent parameters and may not yield comparable results.If eCrCl result is absurd, please check patient'sheight/weight. Estimated Glomerular Filt Rate 56 [facility] Comment:Chronic Kidney Disea se: Estimated GFR < 60 mL/min/1.02a6Ryscfz Kidney Disease: Estimated GFR < 15 mL/min/1.73m2 Glucose 101 60 - 115 mg/dL [facility] Calcium 9.9 8.4 - 10.2 mg/dL [facility] Bilirubin, Total 0.3 0.0 - 1.0 mg/dL [facility] Aspartate Amino Transferase 20 5 - 31 U/L [facility] Alanine Aminotransferase 22 0 - 31 U/L [facility] Total Protein 7.6 6.5 - 8.0 g/dL [facility] Albumin Level 4.7 3.5 - 5.0 g/dL [facility] Alkaline Phosphatase 89 39 - 117 U/L [facility] 05/01/2025 10:5 1 PM EDT 05/01/2025 10:54 PM EDT us Generic External Data Provider LAB BLOOD ORDERAB LES Final Result [facility] [address] [place] [address] [phone] * BI Mammogram Screen w/ Roger w/ Implants Levi (07/30/2024 10:30 AM EDT) Anatomical Region Laterality Modality Mammography 07/30/2024 10:3 0 AM EDT Narrative 08/09/2024 10:50 AM EDT [facility] [address] [place] [address] [place] [address] Mammography Report Signed Patient: Lisandra Haley MR#: [id number] : 1970 Acct:[id number] Age/Sex: 54 / F ADM Date: 07/30/24 Loc: HO.MAMMO Attending Dr: Jose G Castillo NP Ordering Physician: JOSE G CASTILLO NP Results: 2Benign Fin dings Date of Service: 07/30/24 Follow Up: 1 Year From Orig inal Mammogram Procedure(s): MM tomosynthesis screen imp BI Accession Number(s): [id number] cc: JOSE G CASTILLO NP EXAMINATION: MM SCREENING DIGITAL BREAST TOMOSYNTHESIS, BILATERAL [...] 08/09/24 1047 DD/ 1030 TD/TT: 07/30/24 1057 Solar Project Engineer: Procedure Note Donotuseinterpreter, Image - 08/09/2024 [facility] [address] [place] [address] Mammography Report Signed Patient: Sabina Haley#: [id number] : 1970Acct:[id number] Age/Sex: 54 / FADM Date: 07/30/24 Loc: HO.MAMMO Attending Dr: Jose G Castillo NP Ordering Physician: JOSE G CASTILLO NPResults: 2Benign Juan Diego dingkavin Date of Service: 07/30/24Follow Up: 1 Year From Orig inal Mammogram Procedure(s): MM tomosynthesis screen imp BI Accession Number(s): [id number] cc: JOSE G CASTILLO NP EXAMINATION: MM SCREENING DIGITAL BREAST TOMOSYNTHESIS, BILATERAL [...] 08/09/24 1047 DD/ 1030 TD/TT: 07/30/24 1057 Solar Project Engineer: Jose G Castillo ANP IMG BI PROCEDURES Edited Result - Final * Hepatitis C Antibody with Reflex to HCV, RNA, Quantitative, Real-Time PCR (07/05/2024 11:45 AM EDT) Hepatitis C Antibody Nonreactive Nonreactive [facility] Comment:Antibodies to HCV no t detected; does not exclude early acuteHCV infection. Blood Venous blood specimen / Unknown 07/05/2024 11:45 AM EDT 07/05/2024 1:19 PM EDT us Jose G Castillo [facility] LAB BLOOD ORDERABLES Final Resul t Performing Organization Address [facility]/ZIP Co de Phone Number [facility] [address] [place] [phone] * HIV-1/2 Antigen and Antibodies, Fourth Generation, with Reflexes (07/05/2024 11:45 AM EDT) Pathologist [facility] HIV AB/AG Nonreactive Nonreactive [facility] Comment:HIV-1 p24 Ag and/or HIV-1/HIV-2 Ab not detected.A test result that is nonreactive does not exclude thepossibility of exposure to or infection with HIV-1 and/orHIV-2. Nonreactive results in this assay for individualswith prior exposure to HIV-1 and/or HIV-2 may be due toantigen and antibody levels that are below the limit ofdetection of this assay.The [employer] HIV Ag/Ab Combo assay result andsupplemental assay results should be interpreted inconjunction with the patient's clinical presentation,history and other laboratory results. If the results areinconsistent with clinical evidence, additional testing issuggested to confirm the result. Blood Venous blood specimen / Unknown 07/05/2024 11:45 AM EDT 07/05/2024 1:19 PM EDT us Jose G Castillo [facility] LAB BLOOD ORDERABLES Final Resul t Performing Organization Address City/[facility]/ZIP Co de Phone Number [facility] [address] [place] [phone] * Hemoglobin A1c (07/05/2024 11:45 AM EDT) Hemoglobin A1c 5.7 <6.0 % [facility] Comment:Hemoglobin A1C Refer ence Range Adults: 4.8 - 6.0 % Non diabetic: < 6.0 % Goal: < 7.0 %Additional Action Suggested: > 8.0 %Note: Hemoglobin A1c results are invalid for patients with abnormal amounts of HbF. Blood transfusions may impact the HbA1c concentration in the patient sample. Estimated Average Glucose 117 mg/dL [facility] Comment:eAG = Estimated ave rage glucose which is %A1C expressed asaverage glucose, using the formula of the P9A-WegqauyYjwiina Glucose study (ADAG), Diabetes Care, Vol.31,#8,May. 2007 Blood Venous blood specimen / Unknown 07/05/2024 11:45 AM EDT 07/05/2024 1:19 PM EDT [facility] LAB BLOOD ORDERABLES Final Resul t [facility] [address] [place] [phone] [phone] * HPV mRNA E6/E7 w/Reflex to HPV Genotypes 16, 18/45 (08/14/2023 1:06 PM EST) HPV nRNA E6/E7 Not Detected Not Detected [facility] Comment:Methodology: Transcr iption-Mediated AmplificationThis assay detects E6/E7 viral messenger RNA (mRNA) from 14high-risk HPV types (16,18,31,33,35,39,45,51,52,56,58,59,66,68).Cervical sources are required for HPV testing.If a vaginal source from a patient who has had atotal hysterectomy with removal of cervix wassubmitted, please contact the testing laboratoryfor alternative testing options.For additional information, please refer tohttp://education.[employer]/faq/VNE550f0(This link if provided for information/educational purposes only.)THIS TEST WAS PERFORMED AT:[facility] [place] [phone] TAPIA MD HPV mRNA E6/E7 TNP [facility] HPV 16 RNA TNP [facility] HPV 18/45 RNA TNP [facility] 08/14/2023 1:06 PM EST 08/15/2023 8:20 AM EST us Joaquin ALMANZAR LAB CYTOLOGY ORDERABLES F inal Result [facility] [address] [place] [phone] [phone] * Pap Smear (08/14/2023 1:06 PM EST) 08/14/2023 1:06 PM EST 08/15/2023 8:20 AM EST Narrative [facility] - 08/22/2023 1:41 PM EST ----- ------- Name: Lisandra Haley Age/Sex: 53/F : 1970 Unit#: [id number] Attend Dr: JOAQUIN CORNELIUS CNM Re08/14/23 Status: DEP REF Location: [id number] Disch: ----- ------- SPEC : [id number] RECD: 08/15/23 STATUS: MARIELA DICKSON NUM: [id number] MONAE: 08/14/23-[address] [facility] [address]: JOAQUIN CORNELIUS CNM ENTERED: 08/15/23 SP TYPE: Pap Smr OT DR: ORDERED: Pap Smear Interpretation Satisfactory for evaluation. No endocervical cells seen. Negative for intraepithelial lesion or malignancy. HPV mRNA E6/E7: NOT DETECTED This assay detects E6/E7 viral messenger RNA (mRNA) from 14 high-risk HPV types (16, 18, 31, 33, 35, 39, 45, 51, 52, 56, 58, 59, 66, 68) HPV testing performed by [email or web address], [place], [place]. See reference laboratory pion of the EMR for entire report. Clinical Information LMP: Unknown date Previous PAP test: Unknown date/findings Material Received ThinPrep-Cervical ----- ------- Signed (signature on file) MARY Aviles (ASCP) 08/22/23 1341 ----- ------- END OF REPORT Joaquin Cornelius CNM LAB CYTOLOGY ORDERABLES F inal Result [facility] [address] [place] [phone] from Last 3 Months or Most Recently Relevant to Health Maintenance Insurance [facility] STANDARD Care Teams Overhead Garage Door Hanger Relationship Specialty Start Date End Date Jose G Castillo ANP [address] [place] [phone] PCP - General Family Medicine 09/09/20 Lizbeth Alexander Castings TrimmerCnc Maintenance Technician 05/16/24
--- OUTSIDE RECORDS SUMMARY | 2025-06-23 13:13 | XMS_ITS | Encounter Summary ---
Demographics Address [address] [place] [address] Mobile Phone Home Phone Email Address Preferred Language en Marital Status Single Oriental Orthodox Affiliation Unknown Race Other Race Ethnic Group Unknown Author Organization [employer] Address [address] [place] [address] Care Team Providers Care Mobile Home Servicer Name Role Phone Stefanie Conteh Primary Care Provider [phone] Reason for Visit * Reason Onset Date Comments Med Refill 06/18/2025 Encounter Details Date Type Department Care Team ([facility] Contact Info) Description 06/18/2025 Refill [facility] CHC MED & PEDS [address] [place], [place] [phone] Stefanie Conteh ANP [address] [place] [address] Mood disorder (CMS/HCC) Social History Tobacco Use [...] encounter Miscellaneous Notes * Telephone Encounter - Graciela Rosales LPN - 06/18/2025 1:36 PM EDT Last seen 02.17.25 documented in this encounter Plan of Treatment Upcoming Encounters Date Type Department Care Team (Late st Contact Info) Description 08/08/2025 11:00 AM EDT Office Visit [facility] MEDICINE [address] [place] [phone] Stefanie Conteh ANP [address] [place] [address] 08/19/2025 1:45 PM EST Office Visit [facility] MEDICINE [address] [place] [phone] Jayashree Gonzales CNM [address] [place] [address] documented as of this encounter Visit Diagnoses Diagnosis Mood disorder (CMS/HCC) Unspecified episodic mood disorder documented in this encounter Additional Health Concerns Assessment Noted Time PHQ-9 Depression Total Score: 17 024 3:14 PM EST documented as of this encounter Care Teams Mobile Home Servicer Relationship Specialty Start Date End Date Stefanie Conteh ANP [address] [place] [address] PCP - General Family Medicine 09/09/20 Lizbeth Alexander Concrete Bucket HookerSpecial Education Teachers 05/16/24 documented as of this encounter
--- OUTSIDE RECORDS SUMMARY | 2025-06-23 13:13 | XMS_ITS | Encounter Summary ---
Demographics Address [address] [place] [address] Home Phone Preferred Language es Marital Status Single Tenriism Affiliation Unknown Race Unknown Ethnic Group Unknown Author Organization [facility], Address [address] [place] [address] Phone Care Team Providers Care Patient Safety Attendant Name Role Phone Unavailable Primary Care Provider Unavailabl e Encounter Details Date Type Department Care Team (Late st Contact Info) Description 07/13/2022 Documentation Only [facility] [address] [place] [address] Vero Gillis PA [address] [place] [address] [place] [address] Social History Tobacco Use Types Packs/Day Years [...] Care Team (Late st Contact Info) Description 07/03/2025 12:40 PM EDT Office Visit [facility] [address] [place] [address] Kenny Terna MD [address] [place] [address] documented as of this encounter Visit Diagnoses Not on filedocumented in this encounter
--- OUTSIDE RECORDS SUMMARY | 2025-06-23 13:13 | XMS_ITS | Encounter Summary ---
Demographics Address [address] [facility] [address] [place] [address] Mobile Phone Home Phone Email Address Preferred Language en Marital Status Single Methodist Affiliation Unknown Race Other Race Ethnic Group Unknown Author Organization [employer] Address [address] [facility] 7t [place] [address] Care Team Providers Care Photostat Operator Name Role Phone Stefanie Conteh Primary Care Provider [phone] Reason for Visit * Reason Onset Date Comments PT-1 10/21/2024 Encounter Details Date Type Department Care Team ([facility] Contact Info) Description 10/21/2024 Telephone [facility] [address] [place], [place] [phone] Stefanie Conteh ANP [address] [place] [address] PT-1 Social History Tobacco Use Types Packs/Day [...] name or facility name: [facility] [address], [place], [place] [id number] [place] [address] Urology Escort needed: Y/N: No Do you have a wheelchair: Y/N: No If yes- Manual or electric: Visits: (3 x Month) documented in this encounter Plan of Treatment Upcoming Encounters Date Type Department Care Team (Late st Contact Info) Description 08/08/2025 11:00 AM EDT Office Visit [facility] [address] [place] [phone] Stefanie Conteh ANP [address] [place] [address] 08/19/2025 1:45 PM EST Office Visit [facility] [address] [place] [phone] Jayashree Gonazles CNM [address] [place] [address] documented as of this encounter Visit Diagnoses Not on filedocumented in this encounter Additional Health Concerns Assessment Noted Time PHQ-9 Depression Total Score: 17 024 3:14 PM EST documented as of this encounter Care Teams Photostat Operator Relationship Specialty Start Date End Date Stefanie Conteh ANP [address] [place] [address] PCP - General Family Medicine 09/09/20 Lizbeth Alexander Airplane Patrol PilotTappet Adjuster 05/16/24 documented as of this encounter
--- OUTSIDE RECORDS SUMMARY | 2025-06-23 13:13 | XMS_ITS | Encounter Summary ---
Demographics Address [address] [facility] [address] [place] [address] Home Phone Preferred Language es Marital Status Single Judaism Affiliation Unknown Race Unknown Ethnic Group Unknown Author Organization [facility], Address [address] [place] [address] Phone Care Team Providers Care Lodging Manager Name Role Phone Unavailable Primary Care Provider Unavailabl e Encounter Details Date Type Department Care Team (Late st Contact Info) Description 01/04/2022 Documentation Only [facility] [address] [place] [address] Vero Gillis PA [address] [place] [address] [place] [address] Social History Tobacco Use Types [...] Visit [facility] [address] [place] [address] Kenny Teran MD [address] [place] [address] documented as of this encounter Visit Diagnoses Not on filedocumented in this encounter
--- OUTSIDE RECORDS SUMMARY | 2025-06-23 13:13 | XMS_ITS | Encounter Summary ---
Demographics Address [address] [facility] [address] [place] [address] Home Phone Preferred Language es Marital Status Single Taoism Affiliation Unknown Race Unknown Ethnic Group Unknown Author Organization [facility], Address [address] [place] [address] Phone Care Team Providers Care Technology Resource Teacher Name Role Phone Unavailable Primary Care Provider Unavailabl e Encounter Details Date Type Department Care Team (Late st Contact Info) Description 01/04/2022 Documentation Only [facility] [address] [place] [address] Antwan Harper MD [address] [place] [address] [place] [address] Social History Tobacco Use Types [...] [facility] [address] [place] [address] Kenny Teran MD [address] [place] [address] [place] [address] documented as of this encounter Visit Diagnoses Not on filedocumented in this encounter
--- OUTSIDE RECORDS SUMMARY | 2025-06-23 13:13 | XMS_ITS | Clinical Summary ---
Demographics Address [address] [facility] [address] [place] [address] Home Phone Preferred Language es Marital Status Single Mosque Affiliation Unknown Race Unknown Ethnic Group Unknown Author Organization [facility], Address [address] [place] [address] [place] [address] Phone Care Team Providers Care Floor Associate Name Role Phone Unavailable Primary Care Provider [...] Visit [facility], [address] [place] [address] Kenny Teran MD [address] [facility] [place] [phone] Health Maintenance Due Date Last Done Comments Breast Cancer Screening 1970 Hepatitis B Vaccine (1 of 3 - 19+ 3-dose series) 1990 12/30/2015, 10/28/2009, 12/18/2008, Additional history exists Colorectal Cancer Screening: Annual FOBT 2020 Colorectal Cancer Screening: Colonoscopy 2020 Colorectal Cancer Screening: Sigmoidoscopy 2020 Influenza Vaccine (#1) 2025 4, 06/08/2018, 07/12/2017, Additional history exists Pneumococcal Vaccine: 50+ Years Completed 5, 11/30/2000 Pneumococcal Vaccine: Peds ( 0 to 5 Years) and At-Risk Patients (6 to 49 Years) Discontinued 02/17/2025, 11/30/2000 Insurance * Guarantor: Lisandra Haley Account Type Relation to Patient Date of Phone Billing Address Personal/Family Self 1970 [address] [facility] [address] [place] [address] [place] * Guarantor: Lisandra Haley Account Type Relation to Patient Date of Phone Billing Address Personal/Family Self 1970 [address] [facility] [address] [place] [address] * Guarantor: Lisandra Haley Account Type Relation to Patient Date of Phone Billing Address Personal/Family Self 1970 [address] [facility] [address] [place] [address]
--- OUTSIDE RECORDS SUMMARY | 2025-06-23 13:13 | XMS_ITS | Encounter Summary ---
Demographics Address [address] [facility] [address] [place] [address] Home Phone Preferred Language es Marital Status Single Yarsanism Affiliation Unknown Race Unknown Ethnic Group Unknown Author Organization [facility], Address [address] [place] [address] Phone Care Team Providers Care Supervisor Production Managing Name Role Phone Unavailable Primary Care Provider Unavailabl e Encounter Details Date Type Department Care Team (Late st Contact Info) Description 07/13/2022 Documentation Only [facility] [address] [place] [address] Flako Briceño MD [address] [place] [address] [place] [address] Social History Tobacco Use Types [...] Visit [facility] [address] [place] [address] Kenny Teran MD [address] [place] [address] [place] [address] documented as of this encounter Visit Diagnoses Not on filedocumented in this encounter
--- OUTSIDE RECORDS SUMMARY | 2025-06-23 13:13 | XMS_ITS | Encounter Summary ---
Author Organization [employer] Address [address] [place] [address] 7 [place] [address] Care Team Providers Care Surveillance System Monitor Name Role Phone Stefanie Conteh Primary Care Provider [phone] Encounter Details Date Type Department Care Team (Late Contact Info) Description 02/06/2023 Orders Only [address] [address] Stefanie Conteh ANP [address] [place] [phone] Social History Tobacco Use Types Packs/Day Years [...] Department Care Team (Late Contact Info) Description 08/08/2025 11:00 AM EDT Office Visit [address] [address] Stefanie Conteh ANP [address] [place] [address] 08/19/2025 1:45 PM EST Office Visit [address] [address] Joaquin Cornelius CNM [address] [place] [phone] documented as of this encounter Procedures Procedure [...] PM EST 08/15/2023 8:20 AM EST Carlo [facility] - 08/22/2023 1:41 PM EST ----- ------- Name: Lisandra Haley Age/Sex: 53/F : 1970 Unit#: [id number] Attend Dr: JOAQUIN CORNELIUS CNM Re08/14/23 Status: DEP REF Location: [facility] Disch: ----- ------- SPEC : [id number] RECD: 08/15/23 STATUS: MARIELA DICKSON NUM: [id number] MONAE: 08/14/[address] [facility] [address]: JOAQUIN CORNELIUS CNM ENTERED: 08/15/23 [...] 59, 66, 68) HPV testing performed by [facility], [place], [place]. See reference laboratory pion of the EMR for entire report. Clinical Information LMP: Unknown date Previous PAP test: Unknown date/findings Material Received ThinPrep-Cervical ----- ------- Signed (signature on file) MARY Aviles (ASCP) 08/22/23 1341 ----- ------- END OF REPORT Joaquin Cornelius CNM LAB CYTOLOGY ORDERABLES F inal Result [facility] [address] [place] [phone] * HPV mRNA E6/E7 w/Reflex to HPV Genotypes 16, 18/45 (08/14/2023 1:06 PM EST) HPV nRNA E6/E7 Not Detected Not Detected [facility] Comment:Methodology: Transcr iption-Mediated AmplificationThis assay detects E6/E7 viral messenger RNA (mRNA) from 14high-risk HPV types (16,18,31,33,35,39,45,51,52,56,58,59,66,68).Cervical sources are required for HPV testing.If a vaginal source from a patient who has had atotal hysterectomy with removal of cervix wassubmitted, please contact the testing laboratoryfor alternative testing options.For additional information, please refer [email or web address](This link if provided for information/educational purposes only.)THIS TEST WAS PERFORMED AT:[address] [place] [phone] TAPIA MD HPV mRNA E6/E7 [facility] HPV 16 RNA [facility] HPV 18/45 RNA [facility] 08/14/2023 1:06 PM EST 08/15/2023 8:20 AM EST us Joaquin ALMANZAR LAB CYTOLOGY ORDERABLES F inal Result [facility] [address] [place] [phone] * (ABNORMAL) Comprehensive Metabolic Panel (07/28/2023 9:16 PM EDT) Pathologist [facility] [place] Sodium 138 135 - 145 mmol/L [facility] Potassium 3.8 3.3 - 5.1 mmol/L [facility] Chloride 104 96 - 108 mmol/L [facility] Carbon Dioxide 24 22 - 29 mmol/L [facility] Anion Gap 14 12 - 20 [facility] Urea Nitrogen (BUN) 18(H) 9 - 16 mg/dL [facility] Creatinine, Serum 0.91 0.5 - 1.4 mg/dL [facility] Creatinine Clr Calc Pharmacy 65.5 [facility] Comment:Provided height and weight: 154.94 cm,71.668 kg.eGFR (calculated from the MDRD study equation) and eCrCl(calculated from the Cockcroft-Gault equation) are based ondifferent parameters and may not yield comparable results.If eCrCl result is absurd, please check patient'sheight/weight. Estimated Glomerular Filt Rate >60 [facility] Comment:NOTE: For -Am erican individuals, multiply the result by 1.210.Chronic Kidney Disease: Estimated GFR < 60 mL/min/1.14p1Ofkyim Kidney Disease: Estimated GFR < 15 mL/min/1.73m2 Glucose 103 60 - 115 mg/dL [facility] Calcium 10.1 8.4 - 10.2 mg/dL [facility] Bilirubin, Total 0.2 0.0 - 1.0 mg/dL [facility] Aspartate Amino Transferase 18 5 - 31 U/L [facility] Alanine Aminotransferase 23 0 - 31 U/L [facility] Total Protein 7.0 6.5 - 8.0 g/dL [facility] Albumin Level 4.1 3.5 - 5.0 g/dL [facility] Alkaline Phosphatase 45 39 - 117 U/L [facility] 07/28/2023 9:16 PM EDT 07/28/2023 9:19 PM EDT us [facility] External Provider LAB BLO OD ORDERABLES Final Result [facility] [address] [place], [place] [phone] * Urinalysis w/reflex microscopic (07/28/2023 9:16 PM EDT) Color Urine Yellow [facility] Appearance Urine Clear [facility] PH 6.0 5.0 - 9.0 [facility] Glucose Urine UA Negative Negative mg/dL [facility] Urine Blood Negative Negative [facility] Specific [place] - Urine 1.010 1.005 - 1.025 [facility] Urine Protein Negative Neg-Trace mg/dL [facility] Urine Ketones Negative Negative mg/dL [facility] Nitrite Urine Negative Negative [facility] Leukocyte Esterase Urine Negative Negative [facility] 07/28/2023 9:16 PM EDT 07/28/2023 9:19 PM EDT Narrative [facility] - 07/28/2023 9:25 PM EDT [id number], Clean Catch us [facility] External Provider LAB URI NE ORDERABLES Final Result [facility] [address] [place] [address] [phone] * (ABNORMAL) CBC auto differential (07/28/2023 9:16 PM EDT) White Blood Count 8.3 4.8 - 10.8 X10*3/uL [facility] Red Blood Count 4.63 4.20 - 5.50 X10*6/uL [facility] Hemoglobin 13.4 12.0 - 16.0 g/dl [facility] Hematocrit 40.7 37.0 - 47.0 % [facility] Mean Corpuscular Volume 87.9 80.0 - 98.0 fL [facility] Mean Corpuscular Hemoglobin 28.9 27.0 - 33.0 pg [facility] Mean Corpuscular HGB Conc 32.9 31.0 - 35.0 g/dl [facility] Red Cell Distribution Width 13.8 11.0 - 16.0 % [facility] Platelet Count 384 160 - 400 X10*3/uL [facility] Mean Platelet Volume 9.9 9.4 - 12.3 fL [facility] Neutrophils Percent Auto 66.3 45 - 73 % [facility] Imm Gran Pct Auto 0.5(H) 0.0 - 0.4 % [facility] Lymphocytes Percent Auto 24.5 20 - 40 % [facility] Monocytes Percent Auto 6.4 2 - 11 % [facility] Eosinophils Percent Auto 1.7 0 - 4 % [facility] Basophils Percent Auto 0.6 0 - 2 % [facility] NRBC Pct Auto 0.0 0.0 - 0.2 /100WBC [facility] Neutrophils Absolute Auto 5.5 2.0 - 8.3 x10*3/uL [facility] Imm Gran Abs Auto 0.04(H) 0.00 - 0.03 X10*3/uL [facility] Lymphocytes Absolute Auto 2.0 1.2 - 4.9 X10*3/uL [facility] Monocytes Absolute Auto 0.5 0.1 - 1.2 X10*3/uL [facility] Eosinophils Absolute Auto 0.1 0.0 - 0.4 X10*3/uL [facility] Basophils Absolute Auto 0.1 0.0 - 0.2 X10*3/uL [facility] NRBC Abs Auto 0.000 0.0 - 0.012 X10*3/uL [facility] 07/28/2023 9:16 PM EDT 07/28/2023 9:19 PM EDT [facility] External Provider LAB BLO OD ORDERABLES Final Result Performing Organization Address City/State/[facility] Co de Phone Number [facility] [address] [place] [address] [phone] documented in this encounter Visit Diagnoses Not on filedocumented in this encounter Care Teams Surveillance System Monitor Relationship Specialty Start Date End Date Stefanie Conteh ANP [address] [place] [phone] PCP - General Family Medicine 09/09/20 Lizbeth Alexander Livestock FarmerDry Goods Inspector 05/16/24 documented as of this encounter
--- OUTSIDE RECORDS SUMMARY | 2025-06-23 13:13 | XMS_ITS | Clinical Summary ---
Demographics Address [address] [facility] [address] [place] [address] Home Phone Mobile Phone Email Address Preferred Language Unknown Marital Status Unknown Yazdanism Affiliation Unknown Race Unknown Ethnic Group Unknown Author Organization [facility] Address [address] [place] [address] Care Team Providers Care Donor Relations Manager Name Role Phone Unavailable Primary Care Provider Unavailabl e Source Comments PLEASE NOTE, if this patient is a minor, it may be UNLAWFUL to discuss sensitive information that is contained in these records (such as FAMILY PLANNING, MENTAL HEALTH or SUBSTANCE ABUSE) with the minor patient's parent or other person without the patient's specific authorization.[facility] Medications albuterol HFA 90 mcg/actuation inhaler Inhale 2 Puffs into the lungs every 6 (six) hours as needed. 3 Active atorvastatin (LIPITOR) 40 mg tablet Take 40 mg by mouth every morning. Active SYMBICORT 160-4.5 mcg/actuation inhaler Inhale 2 Puffs into the lungs 2 (two) times daily. Active docusate sodium (COLACE) 100 mg capsule Take 100 mg by mouth 2 (two) times daily. Active hydrOXYzine pamoate (VISTARIL) 50 mg capsuleIndicat ions:Unspecifi ed mood (affective) disorder ([facility] V24) Take 50 mg by mouth 2 (two) times daily as needed. 5 07/13/20 25 Active lisinopriL 20 mg tablet Take 20 mg by mouth every morning. Active blood pressure monitor (BLOOD PRESSURE KIT) 1 Kit by NOT APPLICABLE route daily. 4 Active divalproex (DEPAKOTE ER) 500 mg 24 hr tabletIndicati ons:Unspecifie d mood (affective) disorder ([facility] V24) Take 1 Tablet by mouth nightly at bedtime for 30 days. 30 Tablet 5 07/17/20 25 Active FLUoxetine (PROZAC) 10 mg capsuleIndicat ions:Unspecifi ed mood (affective) disorder ([facility] V24) Take 1 Capsule by mouth once daily for 30 days. 30 Capsule 5 07/17/20 25 Active ARIPiprazole (ABILIFY) 20 mg tablet Take 1 Tablet by mouth daily for 60 days. 30 Tablet 1 5 08/16/20 25 Active ARIPiprazole (ABILIFY) 20 mg tablet Take 20 mg by mouth daily. 5 06/05/20 25 Discontinu ed(Reorder (E-Cancel Not Sent)) divalproex (DEPAKOTE ER) 500 mg 24 hr tablet Take 500 mg by mouth nightly at bedtime. 06/05/20 25 Discontinu ed(Reorder (E-Cancel Not Sent)) Active Problems Problem Noted Date Diagnosed Date Lower abdominal pain 10/03/2023 Auditory hallucination 07/05/2023 Unspecified mood (affective) disorder ([facility] V 24) 07/05/2023 Assessment & Plan (06/17/2025 10:42 PM EDT): Assessment: Patient experiences frequent mood swings, with periods of happiness followed by sudden sadness lasting up to 2 days. Depressive episodes occur every 1-2 weeks, characterized by crying spells, self-harm behaviors (scratching face, punching self, pulling hair), and difficulty getting out of bed. Patient denies current suicidal ideation but reports a history of multiple suicide attempts. She is currently taking Abilify 10mg and Depakote, which she reports as somewhat helpful. The patient's presentation and history are consistent with bipolar disorder, but further evaluation is needed to confirm the diagnosis. 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/05/2025): Autosomal dominant polycystic kidney disease Depressive disorder 11/20/2012 Essential hypertension 11/20/2012 Overview (06/05/2025): hypertensive nephrosclerosis Hyperlipidemia 11/20/2012 Vitamin D deficiency 11/20/2012 Encounters Date Type Department Care Team Description 06/05/2025 4:30 PM EDT Behavioral Health Visit [facility] [address] [place] [phone] Samia Reyes APRN from Last 3 Months Immunizations Immunization Administration Dates Next Due Flu, Multi Dose 0.5 ML 07/09/2015 Flu, Preservative Free 11/09/2023,2017,07/12/2017,07/06,07/04/2016 Hep A, adult 12/30/2015,10/28/2009,11/20/2008 Hep B, Adult/Adol (YAAVZOF-A-NJZUD/RECOMBIVAX-ADULT) 12/30/2015,10/28/2009,12/18/2008,11/20 PNEUMOCOCCAL CONJUGATE PCV 2 0 (Prevnar 20) 02/17/2025 PNEUMOCOCCAL POLYSACCHARIDE PPV23 (Pneumovax 23) 11/30/2000 TDAP 12/08/2010 Td (adult), 5 Lf tetanus tox oid (Tenivac), preservative free 10/13/2012 Td (adult),2 Lf tetanus toxo id (TDVAX), preservative free 11/09/2023,11/30/2000 Social History Tobacco Use Types Packs/Day Years Used Date Smoking Tobacco: Never Assessed Comments Unknown Sex and Gender Information Value Date Recorded Sex Assigned at Female 03/31/2025 9:58 AM PDT Legal Sex Female 9:58 AM PDT Gender Identity Female 03/31/2025 9:58 AM PDT Sexual Orientation Not on file Plan of Treatment Upcoming Encounters Date Type Department Care Team ([facility] st Contact Info) Description 07/08/2025 12:00 PM EDT Behavioral Health Visit [facility] [address] [place] [phone] Samia Reyes APRN [address] [facility] [place] [address] Health Maintenance Due Date Last Done Comments Anxiety Screening 1970 Depression Monitoring 1970 HPV Screening 1970 Pap + HPV 1970 Tobacco Screening 1970 Cervical Cancer Screening [address] Colonography 2016 Colonoscopy 2016 Colorectal Cancer Screening 2016 FIT/gFOBT 2016 Fecal DNA 2016 Flexible Sigmoidoscopy 2016 Imm-Zoster, Recombinant (1 of 2) 2021 Alcohol and Drug Screen 10/09/2024 [id number] (2 - season) 2025 021 Imm-Influenza (#1) 2025 11/09/2023, 0 06/08/2018, 07/12/2017, Additional history exists Lipid Screening 07/05/2025 07/05/2024 Diabetes Screening 05/01/2026 05/01/2025, 0 07/05/2024, 07/05/2024, Additional history exists Breast Cancer Screening (Mammogram) 07/30/2026 07/30/2024 Imm-DTaP/Tdap/Td (4 - Td or Tdap) 11/09/2033 11/09/2023, 10/13/2012, 12/08/2010, Additional history exists Imm-Hepatitis B Completed 12/30/2015, 10/10, 12/18/2008, Additional history exists HIV Screening Completed 07/05/2024, 06/10, 12/29/2020 Hepatitis C Screening Completed 07/05/2024 Imm-Pneumococcal 50+ Completed 02/17/2025, 11/30/19 Cervical Ablation/Cold-Knife Conization Discontinued Cervical Cryotherapy Discontinued Colposcopy Discontinued Endometrial Biopsy Discontinued Excision/Leep Discontinued HPV Genotyping Discontinued Vaginal Pap Discontinued Vulvoscopy [place]
== END 2025-06-23 10:24 | disposition home or self-care (01) ==
LOC: HO.HHCL 10:23
PROVIDERS: PCP Nurse Practitioner Primary Care; Visit Provider Nurse Practitioner Primary Care
DX: E78.5 Hyperlipidemia, unspecified (principal)
CPT/HCPCS: 36415; 80061